=== PATIENT | male | born 1965 | race Caucasian/White ===

== ENCOUNTER 2016-04-05 08:05 | Emergency (ER) | payer BC, OTHER ==
[~2016-04-05] VITALS: Ht 182.9 cm; Wt 84.1 kg
[2016-04-05 08:12] VITALS: TEMP 37.1; Ht 182.9 cm; Wt 84.1 kg
[2016-04-05 09:02] VITALS: O2SAT 94
[2016-04-05 09:03] LABS: BASO % 0.4 %; BASO ABS # 0.02 K/uL (0-0.2); COMPLETE YES; EOS % 0.7 %; HEMATOCRIT 45.9 % (42-52); IG% 0.6 %; LYMPH % 26.9 %; LYMPH ABS # 1.46 K/uL (1.2-3.4); MEAN CELL VOLUME 89.5 fL (80-100); MEAN CORPUSCULAR HEMOGLOBIN 32.2 pg (25-34); MEAN CORPUSCULAR HGB CONC 35.9 g/dl (32-36); MEAN PLATELET VOLUME 9.6 fL (7.4-10.4); MONO % 16.2 %; NEUT % 55.2 %; PLATELET COUNT 219 K/uL (130-400); RED BLOOD COUNT 5.13 M/uL (4.7-6.1); WHITE BLOOD COUNT 5.42 K/uL (4.8-10.8)
[2016-04-05 09:12] LABS: PARTIAL THROMBOPLASTIN RATIO 0.9; PROTHROMBIN TIME (PATIENT) 10.2 SECONDS (9.0-12.0)
[2016-04-05 09:34] LABS: ALB/GLOB RATIO 1.1 (0.9-2); BUN/CREATININE RATIO 12.6 (10-20); CALCIUM 9.3 mg/dl (8.5-10.1); CKMB/CK RATIO 2.6 (0-3.0); CREATININE 0.89 mg/dl (0.60-1.40); POTASSIUM 4.5 mmol/L (3.5-5.1)
--- NOTE | 2016-04-05 09:47 | DIAGNOSTIC IMAGING REPORT ---
LEFT RIBS UNILATERAL WITH PA CHEST CLINICAL HISTORY: Left-sided rib pain COMPARISON STUDY: No previous studies for comparison. FINDINGS: The erect chest reveals no pneumothorax. The heart is normal in size. There is no focal pulmonary consolidation. There are no pleural effusions. No left-sided rib fractures are visualized. IMPRESSION: No evidence of pneumothorax. No left-sided rib fractures identified. Electronically signed by: Iftikhar Strauss M.D. 04/05/2016 9:46 AM Dictated Date/Time: 04/05/2016 9:45 AM
--- NOTE | 2016-04-05 11:12 | EMERGENCY ROOM VISIT NOTE ---
History First contact with patient: 08:33 Chief Complaint: RIB PAIN Stated Complaint: RIB PAIN History of Present Illness The patient is a 50 year old male who presents to the Emergency Department by private vehicle for evaluation of his LEFT sided rib pain. He reports that he sustained a fall approximately 3 months ago injuring the LEFT-sided ribs. He had near complete resolve of symptoms from that event. A few weeks ago he developed mild discomfort to the LEFT-sided ribs. He reports that yesterday he had intensification of his pain focused to the LEFT-sided ribs. He reports the pain is worse with movement. He denies any significant pain on exertion. He denies any pleuritic pain, cough, or shortness of breath. He denies any new or recent trauma to the area. He denies any burning sensation or rash. The patient reports no anterior chest pain, palpitations, short of breath, dizziness , or lightheadedness. He denies any personal history of cardiac disease. He reports his father has a history of cardiac disease. He has a brother who at his same age from unknown disease process. The patient is tried nank-xve-lqlefcc medications with minimal relief of symptoms. He rates his current discomfort as a 7/10. The patient denies any fevers, chills, recent illness, headaches, distance, lightheadedness, nausea, vomiting, abdominal pain , hemoptysis, hematochezia, melena, hematuria, or dysuria. The patient denies a recent long distance travel. He reports no history of smoking. He denies any family history of blood clots/bleeding disorders. Patient does not currently have a primary care provider. Review of Systems A complete 10-point Review of Systems was discussed with the patient, with pertinent positives and negatives listed in the History of Present Illness. All remaining Review of Systems questions can be considered negative unless otherwise specified. Social History Smoking Status: Never Smoker Smokeless Tobacco Use: No Drug Use: none Housing Status: lives with family Occupation Status: employed Current/Historical Medications No Active Prescriptions or Reported Meds Allergies Coded Allergies: No Known Allergies (Unverified , 04/05/16) Physical Exam Vital Signs Date Time Temp Pulse Resp B/P Pulse Ox O2 Delivery O2 Flow Rate FiO2 04/05/16 11:26 86 16 130/72 98 04/05/16 10:20 86 19 137/93 96 Room Air 04/05/16 09:36 92 16 142/92 97 Room Air 04/05/16 09:13 90 04/05/16 09:03 94 13 140/88 95 Room Air 04/05/16 09:02 94 Room Air 04/05/16 08:12 37.1 107 18 132/78 97 Room Air Pain Rating (0-10): 7 Physical Exam VITAL SIGNS - Vital signs and nursing notes were reviewed. GENERAL - 50-year-old male appearing his stated age who is in no acute distress. Communicates well with provider and answers questions appropriately. NECK - Neck with FROM. Supple to palpation. LUNGS - Chest wall symmetric without accessory muscle use, intercostals retractions, or central cyanosis. Normal vesicular breath sounds CTA B/L. No wheezes, rales, or rhonchi appreciated. CARDIAC - RRR with S1/S2. No murmur, rubs, or gallops appreciated. No reproducible tenderness to palpation appreciated over the anterior chest wall. Moderate reproducible tenderness to palpation to the LEFT-sided lower axillary line. Reproducible pain appreciated with deep inspiration against examiner's lateral force. No step-off deformity or crepitus. ABDOMEN - Abdominal contour flat and without pulsations or visible masses. BS normoactive all four quadrants. No tenderness, palpable masses, hepatosplenomegaly, or ascites noted. EXTREMITIES - No clubbing or peripheral cyanosis. No pretibial edema present. +3 /5 radial and dorsalis pedis pulses palpated throughout. +5/5 strength noted in UE/LE bilaterally. NEUROLOGIC - Cranial nerves II through XII grossly intact. Sensory intact to light touch throughout. PSYCH - A&Ox3 and cooperates fully with examiner. Pt is very pleasant and interacts well with examiner. Medical Decision & Procedures ER Provider Diagnostic Interpretation: Radiological imaging and reports were reviewed by myself. Radiologist's Interpretation as follows: LEFT RIBS UNILATERAL WITH PA CHEST CLINICAL HISTORY: Left-sided rib pain COMPARISON STUDY: No previous studies for comparison. FINDINGS: The erect chest reveals no pneumothorax. The heart is normal in size. There is no focal pulmonary consolidation. There are no pleural effusions. No left-sided rib fractures are visualized. IMPRESSION: No evidence of pneumothorax. No left-sided rib fractures identified. Laboratory Results 04/05/16 08:50 Red Blood Count 5.13, Mean Corpuscular Volume 89.5, Mean Corpuscular Hemoglobin 32.2, Mean Corpuscular Hemoglobin Concent 35.9, Mean Platelet Volume 9.6, Neutrophils (%) (Auto) 55.2, Lymphocytes (%) (Auto) 26.9, Monocytes (%) (Auto) 16.2, Eosinophils (%) (Auto) 0.7, Basophils (%) (Auto) 0.4, Neutrophils # (Auto ) 2.99, Lymphocytes # (Auto) 1.46, Monocytes # (Auto) 0.88, Eosinophils # (Auto ) 0.04, Basophils # (Auto) 0.02 04/05/16 08:50 Test 04/05/16 08:50 04/05/16 08:55 White Blood Count 5.42 K/uL (4.8-10.8) Red Blood Count 5.13 M/uL (4.7-6.1) Hemoglobin 16.5 g/dL (14.0-18.0) Hematocrit 45.9 % (42-52) Mean Corpuscular Volume 89.5 fL (80-100) Mean Corpuscular Hemoglobin 32.2 pg (25-34) Mean Corpuscular Hemoglobin Concent 35.9 g/dl (32-36) Platelet Count 219 K/uL (130-400) Mean Platelet Volume 9.6 fL (7.4-10.4) Neutrophils (%) (Auto) 55.2 % Lymphocytes (%) (Auto) 26.9 % Monocytes (%) (Auto) 16.2 % Eosinophils (%) (Auto) 0.7 % Basophils (%) (Auto) 0.4 % Neutrophils # (Auto) 2.99 K/uL (1.4-6.5) Lymphocytes # (Auto) 1.46 K/uL (1.2-3.4) Monocytes # (Auto) 0.88 K/uL (0.11-0.59) Eosinophils # (Auto) 0.04 K/uL (0-0.5) Basophils # (Auto) 0.02 K/uL (0-0.2) RDW Standard Deviation 43.0 fL (36.4-46.3) RDW Coefficient of Variation 13.0 % (11.5-14.5) Immature Granulocyte % (Auto) 0.6 % Immature Granulocyte # (Auto) 0.03 K/uL (0.00-0.02) Prothrombin Time 10.2 SECONDS (9.0-12.0) Prothromb Time International Ratio 1.0 (0.9-1.1) Activated Partial Thromboplast Time 23.9 SECONDS (21.0-31.0) Partial Thromboplastin Ratio 0.9 Anion Gap 7.0 mmol/L (3-11) Est Creatinine Clear Calc Drug Dose 111.4 ml/min Estimated GFR () 117.2 Estimated GFR (Non- 101.1 BUN/Creatinine Ratio 12.6 (10-20) Calcium Level 9.3 mg/dl (8.5-10.1) Total Bilirubin 0.3 mg/dl (0.2-1) Aspartate Amino Transf (AST/SGOT) 47 U/L (15-37) Alanine Aminotransferase (ALT/SGPT) 69 U/L (12-78) Alkaline Phosphatase 85 U/L (45-117) Total Creatine Kinase 42 U/L (39-308) Creatine Kinase MB 1.1 ng/ml (0.5-3.6) Creatine Kinase MB Ratio 2.6 (0-3.0) Troponin I < 0.015 ng/ml (0-0.045) Total Protein 7.8 gm/dl (6.4-8.2) Albumin 4.1 gm/dl (3.4-5.0) Globulin 3.7 gm/dl (2.5-4.0) Albumin/Globulin Ratio 1.1 (0.9-2) Lipase 295 U/L (73-393) Bedside D-Dimer 241 ng/mlFEU (0-450) Bedside Troponin I 0.000 ng/ml (0-0.045) Procedure Patient was placed on the court recording monitor and monitored throughout the entire extent of their stay. In addition, the patient's pulse oximetry was monitored throughout the entire stay. Any abnormalities or aberrancies were addressed appropriately. ECG Indication: chest pain Rate (beats per minute): 98 Rhythm: normal sinus Findings: LBBB Comparison ECG Date: no prior available ED Course Patient was seen and evaluated by myself. Labs were drawn, saline lock in place. Patient declines anything for pain at this time. EKG was obtained. I was approached by nursing staff. The patient was found to have a left bundle- branch block. Patient was addressed with this and he is uncertain of any prior EKGs that had been performed. Chest x-ray and x-ray of the ribs were obtained. Laboratory results demonstrate no acute leukocytosis, worrisome anemia, or bandemia. The patient has no significant electrolyte abnormalities. Cardiac enzymes are negative. Troponin is negative. X-ray results as above. I did discuss the case with Dr. Ibanez of [facility] cardiology. He suggests close outpatient follow-up with cardiology with likely nuclear echocardiogram. Case management was able to establish an appointment on Saturday at 11:15 AM with Ema Gunderson PA-C in follow-up. I did discuss this with the patient. He is comfortable with this disposition and plan. The patient was educated on utilizing qvgl-vqg-[id number] medications for pain. He was educated on worrisome symptoms for return visit to the emergency department. Patient discharged home in good condition. Medical Decision Given the patient's presentation and exam findings, I did elect to perform the above-mentioned workup. The patient presents today with LEFT-sided rib and chest pain. His symptoms are certainly reproducible, however he has had no trauma to the affected area over the last few months. This is certainly concerning, and given the patient's family history, I did elect to perform a cardiac evaluation as well. Interestingly, the patient was found to have a left bundle-branch block. There is no prior EKG available for comparison. He has no elevation of his cardiac enzymes to suggest acute cardiac insult and his pain has been ongoing for the last several days. This makes his symptoms much more atypical in nature for cardiac etiology. D-dimer was not elevated to suggest PE for his symptomatology as well. X-ray demonstrates no rib fracture. In a discussion with cardiology, it was felt best that the patient follow up closely for continued management. The patient was comfortable with this disposition and plan. He was educated on worrisome symptoms for return visit to the emergency department. Patient discharged home in good condition. In the evaluation and treatment of this patient, the following differential diagnoses were considered: [place], ASC, Dysrhythmia, Angina, Mediastinitis, GERD, Esophagitis, PE, Pneumonia, Bronchitis, Costochondritis, Rib Fracture, Zoster. Impression Primary Impression: Rib pain on left side Additional Impressions: Left bundle branch block (LBBB) on electrocardiogram EKG abnormality Departure Information Dispostion Home / Self-Care Condition GOOD Prescriptions No Active Prescriptions or Reported Meds Referrals No Doctor, Assigned (PCP) Germain Ibanez M.D. Mattie Gunderson .SANA Patient Instructions My [facility] Additional Instructions You have been treated in the Emergency Department for your Rib Pain and EKG changes. You have been set up with an appointment with Ema Gunderson PA-C for Saturday the at 11:15 AM. Please keep this appointment as it is IMPERATIVE for continued management of your symptoms. For pain control, you can use the following nqhq-ina-jocqibl medicines (if >12 yo): - Regular strength (325mg/tab) Tylenol (acetaminophen) 2 tabs every 4-6 hours as needed. Do not exceed 12 tablets in a 24 hour period. Avoid taking more than 4 grams (4000 mg) of Tylenol per day. This includes any other sources of acetaminophen you may take on a regular basis. - Regular strength (200 mg/tab) Advil (ibuprofen) 1-2 tabs every 4-6 hours as needed. Do not exceed a dose of 3200 mg per day. You should schedule a follow-up appointment with your Primary Care Provider in 2 -3 days for further evaluation from today's Emergency Department visit. Return to the Emergency Department if your current symptoms worsen despite treatment course outlined above, or if you develop any of the following symptoms : worsening chest pain, associated jaw/arm pain, nausea, dizziness, shortness of breath, bloody cough, or fainting. Problem Qualifiers
[2016-04-05 11:26] VITALS: BP 130/72; PULSE 86; O2SAT 98
[2016-05-03] MEDS ORDERED: ATOR-24 PO (07:18)
[2016-05-03] MEDS ORDERED: ASPCH81X PO (07:18)
[2016-05-03] MEDS ORDERED: METO25TA56 PO (07:18)
== END 2016-04-05 11:28 | disposition home or self-care (01) ==
LOC: C.EDB 08:07 → C.EDA 11:28
DX: R07.81 Pleurodynia (principal); I44.7 Left bundle-branch block, unspecified; R94.31 Abnormal electrocardiogram [ECG] [EKG]

== ENCOUNTER → 2016-04-20 | Outpatient (CLI) | payer BC ==
[~2016-04-20] MED LIST: ASPCH81X PO; ATOR-24 PO; METO25TA56 PO; REGADENOSON 0.4 MG/5 ML SYR ONE
--- NOTE | 2016-04-22 08:04 | MYOCARDIAL PERFUSION SCAN ---
TITLE OF STUDY: ONE-DAY TECHNETIUM-99M CARDIOLITE MYOCARDIAL PERFUSION STUDY AGE: 50 CONSULTATION REQUESTED BY: Dr. Sorin Zamora. DATE OF STUDY: 04/20/2016 REASON FOR STUDY: Left bundle branch block, history of coronary artery disease involving family members. EKG: Baseline EKG shows left bundle branch block. With Lexiscan infusion, there were no significant EKG abnormalities induced. There was occasional PVC. TECHNIQUE: For the stress portion of the study, 33.1 mCi of technetium-99m Cardiolite IV was injected at 9:40 a.m. on 04/20/2016. Thirty minutes following the injection, imaging of the heart was performed in multiple projections. For the rest portion of the study, 11.1 mCi of technetium-99m Cardiolite was injected IV at 7:25 a.m. One hour following the injection, imaging of the heart was performed in the same projections. FINDINGS: Raw images were reviewed in detail. There was minimal vertical motion involving the stress images. There was also some mild gut uptake potentially impairing the inferior imaging border of the heart. This was most notable on stress images. Otherwise, there was no significant extra cardiac uptake that was thought to be pathologic. There was questionable visual TID. Short axis, long axis, vertical long axis images were reviewed in detail. There was a moderate-sized, moderate severity, partially reversible mid to apex anterior and septal wall perfusion defect. Summed difference score approximately 5. In addition, there was a large moderate, mostly reversible inferior,inferoseptal defect from the base to the apex. LV was dilated with an end diastolic volume of 158 mL. There was severe LV dysfunction with an EF of 26%. The anterior wall from the mid segment to the apex was severely hypokinetic, septal wall was dyskinetic. The inferior wall was moderately hypokinetic. Lateral wall showed preserved function and normal uptake. IMPRESSION: 1. Moderate sized, moderate in severity anterior, anteroseptal, septal perfusion defect potentially consistent with LAD infarct with jenelle-infarct ischemia in the LAD distribution. 2. Severe inferior, largely reversible perfusion defect concerning for RCA distribution ischemia. 3. Possible TID. 4. Severe left ventricular dysfunction with an EF of 26% and anterior severe hypokinesis with dyskinetic septum in the setting of left bundle. Also with moderate inferior hypokinesis. Lateral wall function appears preserved. Overall, this is a high risk stress test for cardiac events. MTDD
== END | disposition home or self-care (01) ==
LOC: C.NUCL 07:08
PROVIDERS: ATTEND Internal Medicine Interventional Cardiology
DX: I44.7 Left bundle-branch block, unspecified (principal); R07.9 Chest pain, unspecified; Z82.49 Family history of ischemic heart disease and other diseases of the circulatory system

== ENCOUNTER → 2016-05-03 | Day surgery (SDC) | payer BC ==
[~2016-05-03] VITALS: Ht 182.9 cm; Wt 82.0 kg
[~2016-05-03] MED LIST changes: +FENTANYL CITRATE INJ 50 MCG/1 ML 2 ML VIAL ONE; +HEPARIN SOD (PORCINE) 1000 UNIT/ML 10 ML VIAL ONE; +MIDAZOLAM HCL 1 MG/ML 2ML VIAL ONE; +NITROGLYCERIN/D5W 100MCG/ML 20ML SYR ONE; +NiCARDipine HCL INJ 2.5 MG/ML 10 ML AMP ONE; -REGADENOSON 0.4 MG/5 ML SYR ONE
[2016-05-03 07:15] VITALS: BP 105/74; PULSE 74; TEMP 36.9; O2SAT 96; Ht 182.9 cm; Wt 82.0 kg
--- NOTE | 2016-05-03 08:45 | Procedure Note ---
Pre-Mod Sedation Assessment General Date of Moderate Sedation: May 03, 2016. Vital Signs: Vital Signs Past 12 Hours Date Time Temp Pulse Resp B/P Pulse Ox O2 Delivery O2 Flow Rate FiO2 05/03/16 08:42 80 18 115/69 96 Room Air 05/03/16 08:37 81 18 122/68 99 Nasal Cannula 3 05/03/16 07:15 36.9 74 18 105/74 96 97 Review Cardiovascular: regular rate, rhythm, no edema, no gallop Abdomen: normal bowel sounds, non tender, soft Lungs: chest non-tender, lungs clear, normal breath sounds Airway Class: II Pre-Sedation Airway Assessment Oral Cavity: WNL Able to Visualize Vocal Cords: Yes Short Thick Neck: No Hx of Sleep Apnea: No Smoking Status: Never Smoker Mallampati Classification: Class II ASA Classification: Class II Procedure Planning Contraindications-for Mod Sed: None Yes Notes The planned sedation has been discussed with the patient and consent obtained. I have identified the patient, determined the appropriateness of sedation and have assessed the patient immediately prior to the procedure. All medicine(s) and interventions are by my order.
--- NOTE | 2016-05-03 08:45 | History & Physical Bridge Note ---
H&P Re-Evaluation Bridge Note: I have examined the patient, reviewed the History & Physical and in the interval since the performance of the History & Physical I have noted the following changes of clinical significance: No changes noted
--- NOTE | 2016-05-03 08:46 | Procedure Note ---
Post-Mod Sedation Assessment General Date of Moderate Sedation May 03, 2016. Vital Signs: Vital Signs Past 12 Hours Date Time Temp Pulse Resp B/P Pulse Ox O2 Delivery O2 Flow Rate FiO2 05/03/16 08:42 80 18 115/69 96 Room Air 05/03/16 08:37 81 18 122/68 99 Nasal Cannula 3 05/03/16 07:15 36.9 74 18 105/74 96 97 Review - Discharge Criteria Vital Signs Stable: Yes Alert/Oriented/Conversant: Yes Returned to Baseline Mental St: Yes Nausea Absent/Minimal: Yes Pain/Discomfort/Absent/Minimal: Yes Normal/Baseline Respirations: Yes Active Bleeding?: No Pt Received D/C Instructions: Yes Prescriptions Given: None Specific Proced. D/C Criteria Distal Pulses Present (Cardiac: Yes Groin site assessed-Card Cath: N/A Voided Prior To Discharge: Yes Discharged Patients Adult Escort/Transportation: Yes
--- NOTE | 2016-05-03 08:56 | Discharge Instructions ---
Discharge Instructions Procedure Procedure Date: May 03, 2016. Reason for Visit: Abnormal Stress Test *Dr Zamora To Do*. Discharge Discharge Date: May 03, 2016. Discharge Diagnosis: Normal Coronary Arteries Last Recorded Wt (Kilograms): 82 Anesthesia Post Anesthesia Instructions: Instructions Activity Recommendations: limitations as noted below Recommended Home Diet: resume previous diet Allergies: Coded Allergies: No Known Allergies (Unverified , 04/05/16) Provider Instructions ACTIVITY RECOMMENDATIONS: It is common to feel weak and fatigue for a few days. * Do not drive or operate any motorized equipment today. * Limit stair usage (2 or 3 trips a day only) for the next 2 days. * Do not lift anything heavier than 10 pounds for the next three days. * Do not engage in vigorous exercise or any sports for the next five days. * You may shower the day after your procedure, but do not immerse the area for three days. Cleanse the site gently with soap and water. SPECIAL CARE INSTRUCTIONS: * You may replace the pressure dressing or band-aid the morning after the procedure. * After your procedure, it is normal to have a small bruise or small lump at the site. Examine your site daily for any change in the bruise or lump, redness, swelling, drainage or numbness. Notify your doctor if any change. BLEEDING: * If there is a small amount of bleeding at the site, lie down and apply firm pressure with a clean cloth for ten minutes. When the bleeding stops, lie quietly keeping the procedure limb straight for six hours. Notify your doctor as soon as possible. * If the bleeding does not stop after ten minutes or if there is a large amount of bleeding or spurting, call 911 immediately. Continue to lie down and hold firm pressure until help arrives. SKIN IRRITATION: * You may experience some redness and/or swelling in the area where radiation was administered. If any skin irritation occurs, please contact your family physician. FOLLOW UP VISIT: Keep any scheduled doctor appointments. Follow Up Additional Instructions: Echocardiogram at Cardiology office to be scheduled. Follow-up with: Follow-up with Mattie Gunderson in 3 weeks. Kathie Kaiser Recommendations: Call your doctor if: * Temperature above 101 degrees * Pain not relieved by pain medicine ordered * There is increased drainage or redness from any incision * You have any unanswered questions or concerns. Your Doctors Instructions noted above were prepared by provider Joseph Zamora. Patient Signature Section: Patient Instructions Signature Page Jason Moreno Patient (or Guardian) Signature/Date: I have read and understand the instructions given to me by my caregivers. Caregiver/RN/Doctor Signature/Date: The above-named patient and/or guardian has received patient instructions on this date. + Original Patient Signature Page (only) stays with chart. Please make copy for patient.
--- NOTE | 2016-05-03 09:11 | Cardiac Catheterization ---
Procedure Note Procedure Date May 03, 2016. Pre-Procedure Diagnosis Positive Stress Test AUC Score 7 Post-Procedure Diagnosis Normal Coronary Arteries, Normal LV Systolic Function, Normal Intracardiac Pressures Procedure(s) Performed Coronary Angiography, Left Heart Cath, LV Angiography Quarry Manager Dr. Zamora Flocculator Operator(s) Alisha Estimated Blood Loss 15 Medication(s) Fentanyl, Heparin, Nitroglycerin, Versed, Lidocaine 1% Summary of Findings Indication: Atypical chest pain/LBBB/Positive stress test Access: 6Fr Slender Right radial artery Catheters: Shaan, Pigtail Findings: LM - Angiographically normal LAD - Angiographically normal, large vessel that wraps around apex. Circumflex - Minimal luminal irregularities RCA - Dominant, angiographically normal LVEF ~50%. No regional wall motion abnormalities. 1+ MR, 1+ AI LVEDP - 3 Arterial Closure: TR Band Summary: 1. Angiographically normal coronary arteries (False Positive Stress Test) 2. Low normal LV function. LVEF 50% Recommendations: Echocardiogram as an outpatient to confirm LV function, cardiomegaly and mild valvular heart disease. For now continue current cardiac meds. Follow-up with cardiology clinic within next month. Will discuss continued CAD primary prevention meds in setting of patients significant family history and whether needs BB/ANDREA going forward Hemodynamics Rest Ao: 90/57/72 Final Ao: 97/3 LV: 96/55/73 Recommendations Medical therapy and/or Counseling Specimens None Radiation Exposure (mGy) 958 Contrast (mls) 100 Fluids (cc crystalloids) 50 Drains None Anesthesia Moderate Procedural Complication(s) None Disposition Electronic Intelligence Officer Holding/Recovery ACC Data Cardiac Status Clinical evaluation leading to the procedure CAD Presntation: Sx unlikely to be ischemic, Non STEMI Anginal Classification: CCS II Heart Failure: No, NYHA Class: CCS I Cardiogenic Shock w/in 24Hrs: No Cardiac Arrest w/in 24Hrs: No Imaging studies past 6 months: Yes Stress studies past 6 months: Yes Standard Exercise Stress Test: No Stress Echocardiogram: No Stress Testing w/SPECT MPI: Yes - Positive, Risk/Extent of Ischemia (High) Cardiac CTA: No Coronary Anatomy Dominant: Right Left Main (% Stenosis): Normal LAD (% Stenosis): Normal Circumflex (% Stenosis): Normal RCA (% Stenosis): Normal Left Ventricular Angiography EF (%): 50 Mitral Regurgitation: 1+ Aortography Aortic Regurgitation: 1+ Diagnostic Physician's Name: Sorin Zamora MD Status: Elective Closure Device Percutaneous Entry Location: Radial Closure Device: Radial Band Recommendations: Medical therapy and/or Counseling Intraprocedure Events Significant Dissection: No Perforation: No
[2016-05-03 11:00] VITALS: BP 104/67; PULSE 88; O2SAT 97
== END | disposition home or self-care (01) ==
LOC: C.CATH 07:12
PROVIDERS: ATTEND Internal Medicine Interventional Cardiology
DX: I25.10 Atherosclerotic heart disease of native coronary artery without angina pectoris (principal); R07.9 Chest pain, unspecified; R94.39 Abnormal result of other cardiovascular function study; I44.7 Left bundle-branch block, unspecified; Z82.49 Family history of ischemic heart disease and other diseases of the circulatory system; F17.220 Nicotine dependence, chewing tobacco, uncomplicated

== ENCOUNTER → 2016-05-18 | Outpatient (CLI) | payer BC ==
[~2016-05-18] MED LIST changes: -FENTANYL CITRATE INJ 50 MCG/1 ML 2 ML VIAL ONE; -HEPARIN SOD (PORCINE) 1000 UNIT/ML 10 ML VIAL ONE; -MIDAZOLAM HCL 1 MG/ML 2ML VIAL ONE; -NITROGLYCERIN/D5W 100MCG/ML 20ML SYR ONE; -NiCARDipine HCL INJ 2.5 MG/ML 10 ML AMP ONE
[2016-05-18 09:25] LABS: HEMATOCRIT 43.7 % (42-52); MEAN CELL VOLUME 88.5 fL (80-100); MEAN CORPUSCULAR HEMOGLOBIN 31.2 pg (25-34); MEAN CORPUSCULAR HGB CONC 35.2 g/dl (32-36); PLATELET COUNT 224 K/uL (130-400); RED BLOOD COUNT 4.94 M/uL (4.7-6.1); WHITE BLOOD COUNT 6.19 K/uL (4.8-10.8)
[2016-05-18 09:38] LABS: PARTIAL THROMBOPLASTIN RATIO 0.9; PROTHROMBIN TIME (PATIENT) 10.2 SECONDS (9.0-12.0)
[2016-05-18 09:49] LABS: GLUCOSE 98 mg/dl (70-99)
[2016-05-18 09:50] LABS: BLOOD UREA NITROGEN 8 mg/dl (7-18); BUN/CREATININE RATIO 10.1 (10-20); CALCIUM 9.7 mg/dl (8.5-10.1); CARBON DIOXIDE 30 mmol/L (21-32); CHLORIDE 103 mmol/L (98-107); CREATININE 0.82 mg/dl (0.60-1.40); SODIUM 140 mmol/L (136-145)
== END | disposition home or self-care (01) ==
LOC: C.LAB1850 08:07
PROVIDERS: ATTEND Internal Medicine Interventional Cardiology
DX: Z01.818 Encounter for other preprocedural examination (principal)

== ENCOUNTER → 2016-05-22 | Outpatient (CLI) | payer BC ==
[2016-05-22 15:03] LABS: FERRITIN 359.1 ng/ml (8.0-388.0); THYROID STIMULATING HORMONE 0.569 uIu/ml (0.300-4.500)
[2016-05-22 15:55] LABS: LYME DISEASE AB IGG NEG (NEG); LYME DISEASE AB IGM NEG (NEG)
== END | disposition home or self-care (01) ==
LOC: C.LAB1850 12:59
PROVIDERS: ATTEND Internal Medicine Cardiovascular Disease
DX: I42.9 Cardiomyopathy, unspecified (principal)

== ENCOUNTER 2019-04-02 20:05 | Inpatient (IN) ==
[2019-04-02 20:47] LABS: Partial Thromboplastin Ratio 0.8; Partial Thromboplastin Time 21.9 Seconds (21.0-31.0); Prothrombin Time 10.4 Seconds (9.0-12.0)
--- NOTE | 2019-04-02 20:56 | XRay Report ---
SINGLE VIEW CHEST CLINICAL HISTORY: Atypical chest pain. FINDINGS: An AP, portable, upright chest radiograph is compared to study dated 04/05/2016. The examinat ion is degraded by portable technique and patient rotation. The heart is mildly enlarged noting ather osclerotic calcification of the thoracic aorta. The pulmonary vasculature is noncongested. Atelectasi s is seen at the lung bases. The lungs and pleural spaces are otherwise clear. No pneumothorax is see n. The bony thorax is grossly intact. IMPRESSION: Mild cardiac enlargement with no acute cardiopulmonary abnormality. ACT 112: Negative or not required by law. Electronically signed by: Alen Patterson M.D. 04/02/2019 8:54 PM
[2019-04-02 21:03] LABS: Albumin Globulin Ratio 0.4 (0.9-2); Blood Urea Nitrogen 15 mg/dl (7-18); Carbon Dioxide 23 mmol/L (21-32); Chloride 107 mmol/L (98-107); Creatinine Clr Calc Pharmacy 104.3 ml/min; Est GFR (African American) 111.2; Lipase 205 U/L (73-393); Potassium 3.6 mmol/L (3.5-5.1); Sodium 137 mmol/L (136-145); Troponin I 0.019 ng/ml (0-0.045)
[2019-04-02 21:15] LABS: Glucose 104 mg/dl (70-99); Hematocrit (blood only) 24.5 % (42-52); Hemoglobin 7.9 g/dL (14.0-18.0); Mean Corpuscular Hemoglobin 29.6 pg (25-34); Mean Corpuscular Hgb Conc 32.2 g/dL (32-36); Mean Corpuscular Volume 91.8 fL (80-100); Mean Platelet Volume 9.9 fL (7.4-10.4); Nucleated RBC # (auto) 0.03 K/uL (0-0); Nucleated RBC % (auto) 0.7 %; Platelet Count 29 K/uL (130-400); RDW Coefficient of Variation 21.4 % (11.5-14.5); Red Blood Count 2.67 M/uL (4.7-6.1); White Blood Count 4.25 K/uL (4.8-10.8)
[2019-04-02 21:16] LABS: Basophils # (auto) 0.01 K/uL (0-0.2); Basophils % (auto) 0.2 %; Eosinophils # (auto) 0.01 K/uL (0-0.5); Eosinophils % (auto) 0.2 %; Hypochromasia Present; Immature Granulocytes # (auto) 0.02 K/uL (0.00-0.02); Immature Granulocytes % (auto) 0.5 %; Lymphocytes # (auto) 2.96 K/uL (1.2-3.4); Lymphocytes % (auto) 69.6 %; Monocytes # (auto) 0.39 K/uL (0.11-0.59); Monocytes % (auto) 9.2 %; Neutrophils # (auto) 0.86 K/uL (1.4-6.5); Neutrophils % (auto) 20.3 %; Platelet Estimate Decreased (Normal); Rouleaux 2+
[2019-04-02 21:24] LABS: Alanine Aminotransferase 38 U/L (12-78); Alkaline Phosphatase 69 U/L (45-117); Aspartate Aminotransferase 34 U/L (15-37); Bilirubin,Total 0.2 mg/dl (0.2-1)
[2019-04-02 21:48] LABS: Calcium 9.5 mg/dl (8.5-10.1)
[2019-04-02 22:21] LABS: Magnesium 1.9 mg/dl (1.8-2.4); Thyroid Stimulating Hormone 1.49 uIu/ml (0.300-4.500)
--- NOTE | 2019-04-02 23:38 | History & Physical Report ---
Date of Service April 02, 2019 Assessment & Plan (1) Fatigue: Multifactorial : Symptomatic anemia, new diagnosis of pancytopenia with lymphadenopathy (possible lymphoma) ? Lyme disease, partially treated ? Systolic CHF, medication/follow-up noncompliance, some decrease in EF on recent TTE Medical telemetry Transfuse PRBC to maintain hemoglobin greater than 8 Inpatient Hematology consultation as per patient request RE pancytopenia, lymphadenopathy on CT Lyme screen Initiate low-dose beta-geo, ANDREA inhibitor for CHF recommended by pediatric rn in 2017, outpatient follow-up with [facility] cardiology for CHF. DVT prophylaxis with SCDs RE thrombocytopenia Full code Patient's requesting updates from providers. Ms. Tiffani Moreno, contact #[phone]. History of Present Illness Chief Complaint: Fatigue Primary Care Provider: Teo Ernst, History obtained from patient, family, and records. Medical history significant for chronic systolic HF (EF 35 to 40%, TTE 2019), chronic chest pain, chronic LBBB, new diagnosis of pancytopenia/lymphadenopathy, history of tick bite status post incomplete Doxycycline Rx. Patient has had chronic chest pain for years. Abnormal stress test in 2017 led to cardiac catheterization which showed normal coronary arteries, low normal LV function. Aspirin, beta-geo, ANDREA inhibitor medications and outpatient cardiology follow-up visit recommended by pediatric rn. Patient does not recall getting aforementioned instructions. Recent ER visit October 2018 for muscle aches, history of tick bite exposure. Reactive Lyme screen. Patient noted to be pancytopenic (hemoglobin 10) as per ER blood work. Patient discharged on Doxycycline course. Improved symptoms after a few days of doxycycline Rx. Patient did not complete antibiotic Rx because he does not like taking pills. Unclear if patient was able to follow-up with PCP after ER visit. 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 No cough symptoms. Intermittent epistaxis episodes as per records. Patient took some leftover doxycycline tablets prescribed by ER provider for tick bite from last year for a few days which led to some improvement in fatigue symptoms. Patient subsequently confined for 2 days at [facility] in [place] for worsening fatigue symptoms. Patient noted to be pancytopenic. Hemoglobin 6.6, platelets 56, WBC 2.7. Serum iron noted to be 61, TIBC 259, ferritin 239, B12 360, TS saturation 24%. Peripheral blood smear showed pancytopenia with relative lymphocytosis and reactive lymphocytes. Rouleaux formation. LFTs, LDH normal. Negative HCV, HBV serologies. CMV, EBV serologies pending at time of discharge. TTE EF 35 to 40%, moderately reduced systolic function, LAE, PASP 35 mm Hg. Liver ultrasound showed diffusely heterogeneous liver without discrete nodules. Lymphomatous invasion cannot be excluded. CT thorax showed multiple small lymph nodes within mediastinum most compatible very active lymph hyperplasia. Enlarged spleen. Heterogeneous liver CT abdomen pelvis: Severe splenomegaly, aortic adenopathy, diffuse heterogeneous appearance of liver. Small hypodense nodules throughout the liver. Consider mononucleosis. Lymphoma cannot have a similar finding, lymphoma with liver nodules suggestive of metastatic foci. Urinary retention. Patient transfused 2 units packed RBC during confinement. Patient discharged after overnight stay at [facility] with instructions to follow-up with local oncologist for possible lymphoma work-up. Upon return to [place], patient noted worsening fatigue symptoms. No chest pain, no unusual shortness of breath. Denies abdominal pain, black/bloody stools. Denies depression. 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 Allergies Allergy/AdvReac Type Severity Reaction Status Date / Time No Known Allergies Allergy Unverified 04/02/19 22:17 Home Medications Home Medications Medication Instructions Recorded Confirmed Type albuterol sulfate 1 - 2 puff INHALATION .Q4-6HRS 04/02/19 04/02/19 History benzonatate 100 mg PO TID PRN 04/02/19 04/02/19 History fluticasone propionate 2 spray INTRANASAL DAILY PRN 04/02/19 04/02/19 History montelukast 10 mg PO DAILY PRN 04/02/19 04/02/19 History Past Med/Surg History Medical History No pertinent past medical history Tachycardia Surgical History No pertinent past surgical history Family History Other No pertinent family history Social History Preferred Language: Irish Communication Ability: Effective 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 Beliefs That Will Affect Care: None Current Living Situation: Alone Feels Safe at Home: Yes Smoking Status: Never smoker Tobacco Type: smokeless tobacco ; Do You Dip or Chew Tobacco: Yes (1/2 can chew/day) ; Hx Alcohol Use: Yes Review of Systems Review of Systems: As per HPI, all 10 systems reviewed, all other ROS negative Physical Exam Physical Exam: GENERAL: Comfortable, slightly anxious, pleasant, no respiratory distress SKIN: Pallor , warm HEENT: Pale palpebral conjunctivae, no ptosis, dry buccal mucosa NECK : Supple, no tenderness CHEST : Decreased breath sounds , no tenderness HEART : Tachycardic , no obvious murmurs ABDOMEN: Some distention, nontender EXTREMITIES : No LE swelling/tenderness, no other conspicuous deformities noted NEUROLOGIC : Coherent, no facial asymmetry, no other gross focality Results & Data Vital Signs (Past 12 Hours) Vital Signs Temp Pulse Resp BP Pulse Ox 04/02/19 22:36 103 H 22 127/70 98 04/02/19 22:30 104 H 27 H 97 04/02/19 22:15 100 H 23 04/02/19 22:00 97 H 20 100 04/02/19 21:45 105 H 29 H 93 04/02/19 21:30 100 H 21 93 04/02/19 21:15 105 H 22 98 04/02/19 21:00 99 H 22 97 04/02/19 20:45 102 H 21 98 04/02/19 20:30 93 H 18 04/02/19 20:25 97 H 24 04/02/19 20:07 36.7 C 108 H 18 132/83 98 Laboratory Results Laboratory Results WBC 4.25 K/uL (4.8-10.8) L 04/02/19 20:16 RBC 2.67 M/uL (4.7-6.1) L 04/02/19 20:16 Hgb 7.9 g/dL (14.0-18.0) L 04/02/19 20:16 Hct 24.5 % (42-52) L 04/02/19 20:16 MCV 91.8 fL (80-100) 04/02/19 20:16 MCH 29.6 pg (25-34) 04/02/19 20:16 MCHC 32.2 g/dL (32-36) 04/02/19 20:16 RDW Std Deviation 72.0 fL (36.4-46.3) H 04/02/19 20:16 RDW Coeff of Ruth 21.4 % (11.5-14.5) H 04/02/19 20:16 Plt Count 29 K/uL (130-400) L* 04/02/19 20:16 MPV 9.9 fL (7.4-10.4) 04/02/19 20:16 Immature Gran % (Auto) 0.5 % 04/02/19 20:16 Neut % (Auto) 20.3 % 04/02/19 20:16 Lymph % (Auto) 69.6 % 04/02/19 20:16 Mcleod % (Auto) 9.2 % 04/02/19 20:16 Eos % (Auto) 0.2 % 04/02/19 20:16 Baso % (Auto) 0.2 % 04/02/19 20:16 Immature Gran # (Auto) 0.02 K/uL (0.00-0.02) 04/02/19 20:16 Neut # (Auto) 0.86 K/uL (1.4-6.5) L* 04/02/19 20:16 Lymph # (Auto) 2.96 K/uL (1.2-3.4) 04/02/19 20:16 Mcleod # (Auto) 0.39 K/uL (0.11-0.59) 04/02/19 20:16 Eos # (Auto) 0.01 K/uL (0-0.5) 04/02/19 20:16 Baso # (Auto) 0.01 K/uL (0-0.2) 04/02/19 20:16 Absolute Nucleated RBC 0.03 K/uL (0-0) H 04/02/19 20:16 Nucleated RBC % (auto) 0.7 % 04/02/19 20:16 Platelet Estimate Decreased (Normal) L 04/02/19 20:16 Hypochromasia Present 04/02/19 20:16 Rouleaux 2+ 04/02/19 20:16 PT 10.4 Seconds (9.0-12.0) 04/02/19 20:16 INR 1.0 (0.9-1.1) 04/02/19 20:16 APTT 21.9 Seconds (21.0-31.0) 04/02/19 20:16 PTT Ratio 0.8 04/02/19 20:16 Sodium 137 mmol/L (136-145) 04/02/19 20:16 Potassium 3.6 mmol/L (3.5-5.1) 04/02/19 20:16 Chloride 107 mmol/L (98-107) 04/02/19 20:16 Carbon Dioxide 23 mmol/L (21-32) 04/02/19 20:16 Anion Gap 7.0 (3-11) 04/02/19 20:16 BUN 15 mg/dl (7-18) 04/02/19 20:16 Creatinine 0.92 mg/dl (0.6-1.4) 04/02/19 20:16 Est Cr Clr Drug Dosing 104.3 ml/min 04/02/19 20:16 Est GFR ( Amer) 111.2 04/02/19 20:16 Est GFR (Non-Af Amer) 96.0 04/02/19 20:16 BUN/Creatinine Ratio TNP 04/02/19 20:16 Glucose 104 mg/dl (70-99) H 04/02/19 20:16 Calcium 9.5 mg/dl (8.5-10.1) 04/02/19 20:16 Magnesium 1.9 mg/dl (1.8-2.4) 04/02/19 20:16 Total Bilirubin 0.2 mg/dl (0.2-1) 04/02/19 20:16 AST 34 U/L (15-37) 04/02/19 20:16 ALT 38 U/L (12-78) 04/02/19 20:16 Alkaline Phosphatase 69 U/L (45-117) 04/02/19 20:16 Troponin I 0.019 ng/ml (0-0.045) 04/02/19 20:16 Total Protein 10.0 gm/dl (6.4-8.2) H 04/02/19 20:16 Albumin 3.0 gm/dl (3.4-5.0) L 04/02/19 20:16 Globulin 7.0 gm/dl (2.5-4.0) H 04/02/19 20:16 Albumin/Globulin Ratio 0.4 (0.9-2) L 04/02/19 20:16 Lipase 205 U/L (73-393) 04/02/19 20:16 TSH 1.490 uIu/ml (0.300-4.500) 04/02/19 20:16 Blood Type B Positive 04/02/19 20:36 Antibody Screen NEGATIVE 04/02/19 20:36 Diagnostic Findings Chest x-ray : Mild cardiac enlargement with no acute cardiopulmonary abnormality. EKG as per my interpretation : Rate 105, sinus tachycardia, normal axis, LBBB
--- NOTE | 2019-04-03 00:54 | Emergency Department Note ---
Entered by Emy Torres acting as a scribe for Michael Suh MD ED Provider Note CHIEF COMPLAINT: Weakness HISTORY OF PRESENT ILLNESS: The patient is a 53 year old male who presents to the Emergency Room with complaints of persistent weakness that began about 2.5 weeks ago. He states that he was in [place] for work, and he presented to the ER there for heart attack symptoms. The patient notes that he was anemic and there were concerns for lymphoma. He reports that he received a blood transfusion, noting that it provided some relief. The patient complains of a headache and a cough. He complains of intermittent upper extremity numbness and a rash on his back. He feels worse with exertion. Pt denies LOC, fevers, chills, diaphoresis, visual changes, neck pain, chest pain, breathing difficulties, nausea, vomiting, abdom inal pain, back pain, melena, hematochezia, urinary symptoms, lymphadenopathy, or other complaints. REVIEW OF SYSTEMS: See HPI for pertinent positives and negatives. A total of ten systems were reviewed and were otherwise negative. PMHx/PSHx: Tick bite, thrombocytopenia, leukopenia SOCIAL HISTORY: Patient lives at home. PHYSICAL EXAM: GENERAL: Awake, alert, tired-appearing, in no distress HENT: Normocephalic, atraumatic. Oropharynx unremarkable. EYES: PERRL. Normal conjunctiva. Sclera non-icteric. NECK: Inspection normal. Non-tender. Supple. No nuchal rigidity. FROM. No masses. RESPIRATORY: Clear to auscultation. No wheezes. No rales. Normal respiratory effort. CARDIAC: Borderline tachycardic rate. Normal rhythm. No murmurs. No rubs. Extremities warm and well perfused. Pulses equal. No JVD. GI: Soft, non-distended. No tenderness to palpation. No rebound or guarding. No masses. Splenomegaly on exam. RECTAL: Deferred. MUSCULOSKELETAL: Atraumatic. Chest examination reveals no tenderness. The back is symmetrical on inspection without obvious abnormality. There is no CVA tenderness to palpation. No joint edema. LOWER EXTREMITIES: Calves are equal size bilaterally and non-tender. No edema. No discoloration. NEURO: Normal sensorium. No sensory or motor deficits noted. SKIN: No rash or jaundice noted. EMERGENCY DEPARTMENT COURSE: 2055: I reviewed the patient's EMR. Per the patients EMR, the patient presented to a hospital in [place] on 03/30/19 with weakness, generalized fatigue, and functional decline for two weeks prior. He was found to have pancytopenia, and his hepatitis B and C tests were negative. He had an elevated reticulocyte count of 28. The CT of his abdomen and pelvis showed severe splenomegaly and lymphadenopathy with concerns for lymphoma. The staff discussed the issues with him, and he wanted to come home to [place]. On presentation his hemoglobin was 6.6. On discharge, he had a white blood cell count of 3.4, hemoglobin of 8.1, and a platelet count of 39. The CT of his chest showed no acute findings. He was discharged with instructions to follow up with oncology as soon as possible. 2100: Past medical records reviewed. The patient was evaluated in room C08, and a complete history and physical examination were performed. 2121: I updated the patient. 2144: I spoke with Dr. Simeon, [facility] hospitalist, about the patient's case. He will further evaluate the patient. MEDICAL DECISION MAKING: Prior records/ancillary studies reviewed. Nursing notes reviewed and agree them. Additional history obtained from patient significant other. The patient's history was concerning for weakness, abnormal labs, recent h ospitalization and transfusion Differential diagnosis: Etiologies such as symptomatic anemia, myelodysplastic syndrome, lymphoma, metabolic, infection, hypo/hyperglycemia, electrolyte abnormalities, cardiac sources, intracerebral event, toxicologic, neurologic, as well as others were entertained. Physical examination: As above. ER treatment provided: IV Lock Type and cross performed. No medication given. On reassessment the patient felt better. Diagnostics interpretation by me: ECG: Left bundle branch block but no acute ischemia. No dysrhythmia. The labs revealed any mild leukopenia, anemia, pancytopenia and neutropenia. Chemistry panel unremarkable. Imaging studies: Chest imaging negative. The patient has significant anemia. He is on the verge of transfusion. He has neutropenia. He was placed on neutropenic precautions. He needs a work-up in the hospital. Consultation: A consultation was placed with the hospitalist. The case was discussed and diagnostics were reviewed. The patient was evaluated in the ER for further treatment. IMPRESSION: Symptomatic anemia, pancytopenia, neutropenia, and splenomegaly PLAN: Evaluation by hospitalist The scribe's documentation has been prepared under my direction and personally reviewed by me in its entirety. I confirm that the note above accurately reflects all work, treatment, procedures, and medical decision making performed by me. Impression & Plan Symptomatic anemia, Pancytopenia, Neutropenia, Splenomegaly Past Med/Surg History Medical History No pertinent past medical history Tachycardia Surgical History No pertinent past surgical history Family History Other No pertinent family history Social History Feels Safe at Home: Yes Smoking Status: Never smoker Results & Data Vital Signs Vital Signs - 24 hr 04/02/19 20:07 04/02/19 20:25 04/02/19 20:29 Temperature 36.7 C Temperature Source Oral Pulse Rate 108 H 97 H Pulse Rate [Apical] Pulse Rate from SpO2 Sensor Pulse Rhythm Regular Respiratory Rate 18 24 Respiratory Effort / Characteristics Non-Labored Spontaneous Respiratory Depth Normal Blood Pressure 132/83 Blood Pressure [Right Arm] Blood Pressure Mean 99 Blood Pressure Mean [Right Arm] Pulse Oximetry 98 Oxygen Delivery Method Room Air Room Air Sepsis Recent Fever Within 48 Hours No Sepsis Action Taken by Nursing No Action Required 04/02/19 20:30 04/02/19 20:45 04/02/19 21:00 Temperature Temperature Source Pulse Rate 93 H 102 H 99 H Pulse Rate [Apical] Pulse Rate from SpO2 Sensor 102 H 99 H Pulse Rhythm Respiratory Rate 18 21 22 Respiratory Effort / Characteristics Respiratory Depth Blood Pressure Blood Pressure [Right Arm] Blood Pressure Mean Blood Pressure Mean [Right Arm] Pulse Oximetry 98 97 Oxygen Delivery Method Sepsis Recent Fever Within 48 Hours Sepsis Action Taken by Nursing 04/02/19 21:15 04/02/19 21:30 04/02/19 21:45 Temperature Temperature Source Pulse Rate 105 H 100 H 105 H Pulse Rate [Apical] Pulse Rate from SpO2 Sensor 105 H 100 H 105 H Pulse Rhythm Respiratory Rate 22 21 29 H Respiratory Effort / Characteristics Respiratory Depth Blood Pressure Blood Pressure [Right Arm] Blood Pressure Mean Blood Pressure Mean [Right Arm] Pulse Oximetry 98 93 93 Oxygen Delivery Method Sepsis Recent Fever Within 48 Hours Sepsis Action Taken by Nursing 04/02/19 22:00 04/02/19 22:15 01/30/20 22:30 Temperature Temperature Source Pulse Rate 97 H 100 H 104 H Pulse Rate [Apical] Pulse Rate from SpO2 Sensor 98 H 104 H Pulse Rhythm Respiratory Rate 20 23 27 H Respiratory Effort / Characteristics Respiratory Depth Blood Pressure Blood Pressure [Right Arm] Blood Pressure Mean Blood Pressure Mean [Right Arm] Pulse Oximetry 100 97 Oxygen Delivery Method Sepsis Recent Fever Within 48 Hours Sepsis Action Taken by Nursing 04/02/19 22:36 04/03/19 00:00 Temperature Temperature Source Pulse Rate 103 H Pulse Rate [Apical] 100 H Pulse Rate from SpO2 Sensor 103 H Pulse Rhythm Respiratory Rate 22 20 Respiratory Effort / Characteristics Non-Labored Respiratory Depth Normal Blood Pressure 127/70 Blood Pressure [Right Arm] 132/73 Blood Pressure Mean 90 Blood Pressure Mean [Right Arm] 92 Pulse Oximetry 98 100 Oxygen Delivery Method Room Air Sepsis Recent Fever Within 48 Hours Sepsis Action Taken by Prison Medications Current Medication List: was personally reviewed by me Laboratory Data Attestation: I reviewed the patient's lab results. Result diagrams: 04/02/19 20:16 04/02/19 20:16 Lab Results 04/02/19 04/02/19 04/02/19 Range/Units 20:16 20:16 20:16 WBC 4.25 L (4.8-10.8) K/uL RBC 2.67 L (4.7-6.1) M/uL Hgb 7.9 L (14.0-18.0) g/dL Hct 24.5 L (42-52) % MCV 91.8 (80-100) fL MCH 29.6 (25-34) pg MCHC 32.2 (32-36) g/dL RDW Std Deviation 72.0 H (36.4-46.3) fL RDW Coeff of Ruth 21.4 H (11.5-14.5) % Plt Count 29 L* (130-400) K/uL MPV 9.9 (7.4-10.4) fL Immature Gran % (Auto) 0.5 % Neut % (Auto) 20.3 % Lymph % (Auto) 69.6 % Stone % (Auto) 9.2 % Eos % (Auto) 0.2 % Baso % (Auto) 0.2 % Immature Gran # (Auto) 0.02 (0.00-0.02) K/uL Neut # (Auto) 0.86 L* (1.4-6.5) K/uL Lymph # (Auto) 2.96 (1.2-3.4) K/uL Stone # (Auto) 0.39 (0.11-0.59) K/uL Eos # (Auto) 0.01 (0-0.5) K/uL Baso # (Auto) 0.01 (0-0.2) K/uL Absolute Nucleated RBC 0.03 H (0-0) K/uL Nucleated RBC % (auto) 0.7 % Platelet Estimate Decreased L (Normal) Hypochromasia Present Rouleaux 2+ PT 10.4 (9.0-12.0) Seconds INR 1.0 (0.9-1.1) APTT 21.9 (21.0-31.0) Seconds PTT Ratio 0.8 Sodium 137 (136-145) mmol/L Potassium 3.6 (3.5-5.1) mmol/L Chloride 107 (98-107) mmol/L Carbon Dioxide 23 (21-32) mmol/L Anion Gap 7.0 (3-11) BUN 15 (7-18) mg/dl Creatinine 0.92 (0.6-1.4) mg/dl Est Cr Clr Drug Dosing 104.3 ml/min Est GFR ( Amer) 111.2 Est GFR (Non-Af Amer) 96.0 BUN/Creatinine Ratio TNP Glucose 104 H (70-99) mg/dl Calcium 9.5 (8.5-10.1) mg/dl Magnesium (1.8-2.4) mg/dl Total Bilirubin 0.2 (0.2-1) mg/dl AST 34 (15-37) U/L ALT 38 (12-78) U/L Alkaline Phosphatase 69 (45-117) U/L Troponin I 0.019 (0-0.045) ng/ml Total Protein 10.0 H (6.4-8.2) gm/dl Albumin 3.0 L (3.4-5.0) gm/dl Globulin 7.0 H (2.5-4.0) gm/dl Albumin/Globulin Ratio 0.4 L (0.9-2) Lipase 205 (73-393) U/L TSH (0.300-4.500) uIu/ml Blood Type Antibody Screen 04/02/19 04/02/19 Range/Units 20:16 20:36 WBC (4.8-10.8) K/uL RBC (4.7-6.1) M/uL Hgb (14.0-18.0) g/dL Hct (42-52) % MCV (80-100) fL MCH (25-34) pg MCHC (32-36) g/dL RDW Std Deviation (36.4-46.3) fL RDW Coeff of Ruth (11.5-14.5) % Plt Count (130-400) K/uL MPV (7.4-10.4) fL Immature Gran % (Auto) % Neut % (Auto) % Lymph % (Auto) % Stone % (Auto) % Eos % (Auto) % Baso % (Auto) % Immature Gran # (Auto) (0.00-0.02) K/uL Neut # (Auto) (1.4-6.5) K/uL Lymph # (Auto) (1.2-3.4) K/uL Stone # (Auto) (0.11-0.59) K/uL Eos # (Auto) (0-0.5) K/uL Baso # (Auto) (0-0.2) K/uL Absolute Nucleated RBC (0-0) K/uL Nucleated RBC % (auto) % Platelet Estimate (Normal) Hypochromasia Rouleaux PT (9.0-12.0) Seconds INR (0.9-1.1) APTT (21.0-31.0) Seconds PTT Ratio Sodium (136-145) mmol/L Potassium (3.5-5.1) mmol/L Chloride (98-107) mmol/L Carbon Dioxide (21-32) mmol/L Anion Gap (3-11) BUN (7-18) mg/dl Creatinine (0.6-1.4) mg/dl Est Cr Clr Drug Dosing ml/min Est GFR ( Amer) Est GFR (Non-Af Amer) BUN/Creatinine Ratio Glucose (70-99) mg/dl Calcium (8.5-10.1) mg/dl Magnesium 1.9 (1.8-2.4) mg/dl Total Bilirubin (0.2-1) mg/dl AST (15-37) U/L ALT (12-78) U/L Alkaline Phosphatase (45-117) U/L Troponin I (0-0.045) ng/ml Total Protein (6.4-8.2) gm/dl Albumin (3.4-5.0) gm/dl Globulin (2.5-4.0) gm/dl Albumin/Globulin Ratio (0.9-2) Lipase (73-393) U/L TSH 1.490 (0.300-4.500) uIu/ml Blood Type B Positive Antibody Screen NEGATIVE Imaging Data Radiologist's Impression: Radiology results as stated below per my review and the radiologist's interpretation: SINGLE VIEW CHEST CLINICAL HISTORY: Atypical chest pain. FINDINGS: An AP, portable, upright chest radiograph is compared to study dated 04/05/2016. The examination is degraded by portable technique and patient rotation. The heart is mildly enlarged noting atherosclerotic calcification of the thoracic aorta. The pulmonary vasculature is noncongested. Atelectasis is seen at the lung bases. The lungs and pleural spaces are otherwise clear. No pneumothorax is seen. The bony thorax is grossly intact. IMPRESSION: Mild cardiac enlargement with no acute cardiopulmonary abnormality. ACT 112: Negative or not required by law. Electronically signed by: Alen Patterson M.D. 04/02/2019 8:54 PM ECG Data Attestation: I personally reviewed and interpreted this ECG as follows: Indication: + weakness Rate (beats per minute): 102 Rhythm: sinus tachycardia ECG Intervals/blocks: + Left bundle branch block ECG ST segments: no ST elevation ECG Findings: + Other (left atrial enlargement); no PVCs Blood Pressure Blood Pressure Findings: Elevated blood pressure Blood Pressure Disposition: further management by hospitalist Discharge Plan Visit Data Chief Complaint: Chest Pain Stated Complaint: CHEST PAINS, CARDIAC HX ED Provider: Michael Suh Discharge Problem: Symptomatic anemia, Pancytopenia, Neutropenia, Splenomegaly Patient Disposition: Being Evaluated by Hospitalist Forms Stand Alone Forms: Call Back Authorization, [facility] Prescriptions Prescriptions: No Action benzonatate 100 mg capsule 100 mg PO TID PRN (Reason: Cough) RF: 0 montelukast 10 mg tablet 10 mg PO DAILY PRN (Reason: Allergic Reaction) RF: 0 albuterol sulfate 90 mcg/actuation HFA aerosol inhaler 1 - 2 puff INHALATION .Q4-6HRS RF: 0 fluticasone propionate 50 mcg/actuation spray,suspension 2 spray INTRANASAL DAILY PRN (Reason: Nasal Congestion) RF: 0 Referrals Referrals: Teo Ernst DO [Primary Care Provider] - Discharge Problem: Neutropenia Qualifiers: Neutropenia type: unspecified Qualified Code(s): D70.9 - Neutropenia, unspecified The scribe's documentation has been prepared under my direction and personally reviewed by me in its entirety. I confirm that the note above accurately reflects all work, treatment, procedures, and medical decision making performed by me.
[2019-04-03 01:07] LABS: Lyme Ab IgG w/WB Rflx Positive (Negative); Lyme Ab IgM w/WB Rflx Positive (Negative)
[2019-04-03] MEDS ORDERED: LORazepam 0.5 MG/1 ML VIAL IV PRN (01:33)
[2019-04-03] MEDS ORDERED: PROMETHAZINE HCL 12.5 MG in SODIUM CHLORIDE 0.9% 50 ML IV PRN (01:33)
[2019-04-03] MEDS ORDERED: SODIUM CHLORIDE 0.9% 250 ML IV PRN (01:33)
[2019-04-03] MEDS ORDERED: POTASSIUM CHLORIDE 20 MEQ TABCR PO STA (01:33)
[2019-04-03] MEDS ORDERED: ACETAMINOPHEN 325 MG TAB PO PRN (01:33)
[2019-04-03] MEDS ORDERED: MAGNESIUM SULFATE / D5W 1 GM/100 ML BAG IV ONE (02:30)
[2019-04-03] MEDS: DOXYCYCLINE HYCLATE 100 MG CAP PO SCH ×2 (07:47→20:12)
[2019-04-03] MEDS: METOPROLOL TARTRATE 25 MG TAB PO SCH ×2 (09:25→20:13)
[2019-04-03] MEDS ORDERED: IOVERSOL 100ml IV PRN (09:37)
[2019-04-03] MEDS ORDERED: ALUMINUM/MAGNESIUM SUSP 50 ML, DiphenhydrAMINE Syrup 125 MG, LIDOCAINE HCL 2% VISCOUS 4... PO PRN (09:59)
--- NOTE | 2019-04-03 10:00 | Consultation Report ---
DATE OF CONSULTATION: 04/03/2019 REASON FOR CONSULTATION: Pancytopenia, lymphadenopathy and splenomegaly. HISTORY OF PRESENT ILLNESS: Jason is a very fascinating 53-year-old gentleman who presents to [facility] for 2 weeks of worsening fatigue and shortness of breath. 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 He presented to the facility in [place] and was hospitalized for 2 days. During that time, a battery of tests including CT scan of the chest, abdomen and pelvis was performed revealing diffuse lymphadenopathy and splenomegaly. He was also found to be pancytopenic and was transfused 2 units packed RBCs. Apparently, there were additional labs done which need to be reviewed. Jason expressed desire to return home of [place] and was subsequently released without being seen by meal attendant/oncologist in [place]. Upon arriving home, he presented immediately to [facility]. Interestingly, other than fatigue, he remains asymptomatic including a robust appetite. He has not lost weight. He denies any fevers, chills or night sweats. He reports being bitten by 2 ticks earlier this summer and currently has positive Lyme titers. According to clinical notes, his blood counts in [place] were as follows: WBC 2700, hemoglobin 6.6 with platelet count 56,000. LDH was noted to be elevated as well. CT scan of the chest, abdomen and pelvis from [place] revealed small lymph nodes within the mediastinum, compatible with active lymphoid hyperplasia, enlarged spleen, aortic lymphadenopathy, diffuse heterogeneous. The liver were small, hypodense nodules seen throughout the liver. PAST MEDICAL HISTORY: Negative. PAST SURGICAL HISTORY: Negative. CURRENT MEDICATIONS: Albuterol 1-2 puffs inhaled q.4 hours p.r.n., Tessalon Perles 100 mg p.o. t.i.d. p.r.n., Flonase 2 sprays intranasally daily as needed, Singulair 10 mg p.o. daily p.r.n. ALLERGIES: No known drug allergies. SOCIAL HISTORY: Again, patient is employed fulltime as discussed in the HPI. Negative for cigarettes. He is a tobacco chewer, positive for social alcohol. FAMILY HISTORY: Noncontributory. REVIEW OF SYSTEMS: Again, most notably for fatigue and dyspnea. GENERAL: Negative for fevers, chills or night sweats. He is not anorexic or losing weight. SKIN: No rashes or lesions. No history of dermatoses. HEENT: He denies headaches, lightheadedness or dizziness. No acute visual or hearing deficits. No sinus symptoms, sore throat or dysphagia. LYMPH: No history of lymphoproliferative disease. CARDIAC: Positive for tachycardia. No angina or palpitations otherwise. PULMONARY: He was complaining of shortness of breath and dyspnea on exertion. Apparently, has an underlying history of asthma. He is on bronchodilators. No cough or hemoptysis. GASTROINTESTINAL: Negative for abdominal pain, nausea, vomiting, diarrhea or constipation, hematochezia or melena stools. GENITOURINARY: No hematuria, dysuria, urinary incontinence. PSYCHIATRIC: Negative for anxiety, depression or psychoses by history. ENDOCRINE: Negative for diabetes or thyroid disease. NEUROLOGIC: Negative for seizure, stroke, or migraine headache. MUSCULOSKELETAL: Positive for generalized weakness. No arthralgias or myalgias by history. HEMATOLOGIC: Positive for pancytopenia. PHYSICAL EXAMINATION: GENERAL: Very pleasant 53-year-old well-nourished gentleman, awake, alert and appropriate, in no acute distress. VITAL SIGNS: Temperature 36.6, pulse 96, respiratory rate 18, blood pressure 133/81. SKIN: Warm, dry, noncyanotic without petechia, rash or ecchymosis. HEENT: Head is atraumatic, normocephalic. Eyes: PERRLA, EOMI. Sclerae nonicteric. No conjunctival injection. Nares patent without rhinorrhea or discharge. Throat clear. Tongue midline. Mucous membranes are moist. No buccal lesions or ulcerations noted. LYMPHATICS: No palpable cervical, supraclavicular, axillary or inguinal nodes. HEART: Regular rate and rhythm. No clicks, rubs, murmurs or gallops. LUNGS: Clear to auscultation bilaterally. ABDOMEN: Soft, nontender, nondistended, could not appreciate hepatosplenomegaly. Bowel sounds are active. No rigidity or guarding. EXTREMITIES: Musculoskeletal strength is equal as are pulses in all 4 quadrants. No clubbing, cyanosis or edema. NEUROLOGICALLY: He is awake, alert and oriented x3. Cranial nerves are grossly intact. LABORATORY DATA: WBC count 40-50, hemoglobin 7.9, platelet count 29,000, absolute neutrophil count 860. He has got a few nucleated RBCs. Coags are within normal limits. Sodium 137, potassium 3.6, chloride 107, carbon dioxide 23, BUN 15, creatinine 0.92. Transaminases are within normal limits. His globulin level is elevated. Albumin is low. Total protein 10. He has a positive IgM and IgG titer for Lyme's disease. IMPRESSION: 1. Fatigue/generalized weakness. 2. Pancytopenia. 3. Lymphadenopathy of unclear origin. 4. Hypoalbuminemia. 5. Elevated globulin level. 6. Positive Lyme titers. PLAN: Mr. Moreno is a very pleasant 53-year-old gentleman who presents with a constellation of signs and symptoms suggestive of an emerging lymphoproliferative process. Mr. Moreno has been struggling over the last couple of weeks, actually presented to hospital while working in [place], [place], a complete battery of tests were done. He received 2 units of packed RBCs. According to medical documents, CT scan done there revealed diffuse lymphadenopathy and splenomegaly. He also has positive Lyme titers which sort of confuses the clinical picture. He has an elevated globulin fraction with rouleaux formation which may suggest an underlying plasma cell dyscrasia. SPEP with immunofixation should be added to the diagnostic workup. A bone marrow biopsy and aspiration will probably need to be done as well. I did take the liberty of ordering CT scan of the neck, chest, abdomen and pelvis to see if there is readily assessable lymphadenopathy for extraction and evaluation. This gentleman is not exhibiting B symptoms which is not characteristic for emerging lymphoproliferative disease. Agree with current medical management. Would continue to support his hemoglobin with transfusion. Obviously, ID should be consulted to look into the Lyme, the possibility of active Lyme's disease. We will continue to follow this gentleman closely through hospitalization. Thank you very much for allowing me to participate in his care.
--- NOTE | 2019-04-03 10:15 | CT Scan Report ---
CT abd pelvis oral and IV con CLINICAL HISTORY: Lymphadenopathy COMPARISON STUDY: None. TECHNIQUE: The patient was scanned following administration of dilute oral contrast, and in a dynamic helical fashion during intravenous administration of 94 cc of Optiray 320. A dose lowering techniqu e was utilized adhering to the principles of ALARA. CT DOSE: FINDINGS: Lower chest: The heart is normal in size and configuration, without pericardial effusion. The lung ba ses and pleural spaces are clear. Liver: There is subtle inhomogeneous hepatic enhancement without evidence of a discrete mass. The por gamaliel vein is patent. The hepatic veins appear patent. There is no ductal dilatation. Gallbladder: Unremarkable. Spleen: The spleen is enlarged measuring 22 cm. Pancreas: Unremarkable. Adrenal glands: Unremarkable. Kidneys: There is symmetric renal cortical enhancement. The kidneys are normal in size without hydron ephrosis. Bowel: There are no transition zones indicate bowel obstruction. There is no evidence of acute divert iculitis. The appendix appears normal. Peritoneum: There is no intraperitoneal free air or abdominal ascites. There is a small right inguina l hernia. This contains a small portion of the right anterior lateral bladder. Vasculature: The abdominal aorta is normal in course and caliber. Adenopathy: There are mildly enlarged aortocaval lymph nodes which appear pathologic. There are borde rline enlarged portacaval lymph nodes. Pelvic viscera: There is mild prostatomegaly Skeletal structures: No destructive osseous lesions are seen. IMPRESSION: 1. Moderate to marked splenomegaly (22 cm) 2. Mild aortocaval lymphadenopathy, and borderline enlarged geoffrey hepatis nodes. 3. A lymphoproliferative disorder is a diagnosis of exclusion and further workup is advocated 4. No evidence of bowel obstruction. No evidence of free air 5. No acute inflammatory changes 6. Slight heterogeneity in hepatic enhancement without evidence of a focal mass ACT 112: Negative or not required by law. Electronically signed by: Iftikhar Strauss M.D. 04/03/2019 10:14 AM
--- NOTE | 2019-04-03 10:23 | CT Scan Report ---
CT soft tissue neck w con HISTORY: Lymphadenopathy TECHNIQUE: Multiaxial CT images of the neck were performed following the use of intravenous contrast. COMPARISON STUDY: None. FINDINGS: The visualized brain parenchyma and orbits are within normal limits. The lung apices are cl ear. No suspicious lytic or blastic osseous lesions. The major cervical vessels are patent. The thyro id gland enhances normally. The major salivary glands enhance symmetrically. No masses or abscess chaitanya ntified within the neck. The contours of the hypopharynx are within normal limits. The epiglottis and prevertebral soft tissues are normal in thickness. The cervical lymph nodes are subcentimeter in siz e and do not meet CT criteria for pathologic involvement. Dominant left lower posterior cervical marshal n lymph node on image 162 measures 9 x 7 mm. There is suggestion of mildly enlarged left supraclavicu lar lymph nodes with associated fat stranding. Dominant lymph node measures approximately 1 cm. Howev er, these are difficult to assess due to the streak artifact from the contrast within the adjacent ve ssels. IMPRESSION: 1. No definite cervical lymphadenopathy. 2. Suggestion of mildly enlarged left supraclavicular lymph nodes measuring up to 1 cm. These demonst rate mild surrounding fat stranding. However, these are difficult to assess due to the streak artifac t from the contrast within the adjacent vessels. Follow-up ultrasound may help for further evaluation . ACT 112: Negative or not required by law. Electronically signed by: Rickie Pacheco M.D. 04/03/2019 10:22 AM
--- NOTE | 2019-04-03 13:01 | Electrocardiogram Report ---
Test Reason : Blood Pressure : / mmHG Vent. Rate : 102 BPM Atrial Rate : 102 BPM P-R Int : 156 ms QRS Dur : 142 ms QT Int : 376 ms P-R-T Axes : 062 022 240 degrees QTc Int : 490 ms Sinus tachycardia Possible Left atrial enlargement Left bundle branch block Abnormal ECG When compared with ECG of 05-APR-2016 08:49, Nonspecific T wave abnormality, worse in Inferior leads Confirmed by Sorin Schwarz ([id number]) on 04/03/2019 1:00:43 PM Referred By: REFERRED SELF Confirmed By:Abdias Schwarz
[2019-04-03 13:23] LABS: Hematocrit (blood only) 21.9 % (42-52); Hemoglobin 7.1 g/dL (14.0-18.0); Mean Corpuscular Hemoglobin 29.7 pg (25-34); Mean Corpuscular Hgb Conc 32.4 g/dL (32-36); Mean Corpuscular Volume 91.6 fL (80-100); Mean Platelet Volume 10.6 fL (7.4-10.4); Platelet Count 29 K/uL (130-400); RDW Coefficient of Variation 21.3 % (11.5-14.5); RDW Standard Deviation 72.1 fL (36.4-46.3); Red Blood Count 2.39 M/uL (4.7-6.1); White Blood Count 2.79 K/uL (4.8-10.8)
--- NOTE | 2019-04-03 13:26 | Infectious Disease Consult ---
Date of Consultation April 03, 2019 Assessment & Plan (1) Fatigue: doubt related to lyme disease but can continue doxy pending western blot, if + would give 14 days. agree wiht additional workup for lymphoma. can change doxy to po. no new ID recs at this time, ok for d/c when otherwise stable. History of Present Illness Attending Physician: Teo Kee MD pt admitted with fatigue. was recently in [place] for work and admitted there briefly for same. ct done and showed enlarged spleen, multiple nodes and concern for lymphoma, also found to have pancytopenia. was d/c with plans tofollow up for ongoing workup and readmitted, still with pancytopenia. heme onc following. Had diagnosis of lyme disease this summer after tick bite, 10/2018 titers negative, took partial doxy, now due to fatigue lyme repeated, screen +, wb pending, placed on IV doxy, tolerating well. denies f/c. no sob, cough, cp, no abd pain, no n/v/d. eating well. no gu symptoms, no joint pain, swelling, no new tick bites, rashes. ID consulted for abnormal lyme screen, pt is asking to go home. Allergies Allergy/AdvReac Type Severity Reaction Status Date / Time No Known Allergies Allergy Unverified 04/02/19 22:17 Home Medications Home Medications Medication Instructions Recorded Confirmed Type albuterol sulfate 1 - 2 puff INHALATION .Q4-6HRS 04/02/19 04/02/19 History benzonatate 100 mg PO TID PRN 04/02/19 04/02/19 History fluticasone propionate 2 spray INTRANASAL DAILY PRN 04/02/19 04/02/19 History montelukast 10 mg PO DAILY PRN 04/02/19 04/02/19 History Patient History Medical History No pertinent past medical history Tachycardia Surgical History No pertinent past surgical history Family History Other No pertinent family history Social History Preferred Language: Syriac Communication Ability: Effective Communications Equipment Operator Required: No Beliefs That Will Affect Care: None Current Living Situation: Alone Feels Safe at Home: Yes Smoking Status: Never smoker Tobacco Type: smokeless tobacco ; Do You Dip or Chew Tobacco: Yes (1/2 can chew/day) ; Hx Alcohol Use: Yes Review of Systems Review of Systems: All systems reviewed & are unremarkable except as noted in HPI & below Physical Exam Constitutional: WD/WN, vitals as above Eyes: PERRL, conjunctivae normal, anicteric sclerae ENMT: external ear and nose normal, oropharynx normal Neck: normal visual inspection Respiratory: normal respiratory effort, lungs clear to auscultation Cardiovascular: RRR, no murmur, no edema Gastrointestinal (Abdomen): normal bowel sounds, soft, nontender, no hepatosplenomegaly Musculoskeletal: no cyanosis or clubbing, extremities motor strength 5/5 Skin: no rashes, warm and dry Psychiatric: A+Ox3, euthymic affect Results & Data Vital Signs (Past 12 Hours) Vital Signs Temp Pulse Pulse Resp BP BP BP 04/03/19 11:33 36.9 C 88 20 137/80 04/03/19 09:17 36.9 C 92 H 18 125/74 04/03/19 08:28 36.6 C 96 H 18 133/81 04/03/19 07:55 36.6 C 87 18 121/78 04/03/19 07:41 36.9 C 88 18 125/75 04/03/19 07:40 36.8 C 86 16 134/77 04/03/19 07:25 36.9 C 88 16 125/75 04/03/19 07:00 89 04/03/19 03:58 37.2 C 105 H 18 129/74 04/03/19 01:57 95 H 04/03/19 01:25 36.9 C 97 H 16 114/64 Pulse Ox 04/03/19 11:33 98 04/03/19 09:17 97 04/03/19 08:28 98 04/03/19 07:55 97 04/03/19 07:41 95 04/03/19 07:40 97 04/03/19 07:25 95 04/03/19 07:00 04/03/19 03:58 97 04/03/19 01:57 04/03/19 01:25 97 PG Care Time/CCT Total # of Minutes Spent Total Time Spent with Patient: Total time spent is greater than 50% in coordination of care (as documented) at patient's floor/unit and/or counseling patient: Coding Level of Care Code 96663 Inpt Consult Level 4 Diagnoses Fatigue R53.83
[2019-04-03 13:33] LABS: Basophils # (auto) 0.01 K/uL (0-0.2); Basophils % (auto) 0.4 %; Immature Granulocytes # (auto) 0.01 K/uL (0.00-0.02); Immature Granulocytes % (auto) 0.4 %; Lymphocytes # (auto) 1.87 K/uL (1.2-3.4); Monocytes # (auto) 0.31 K/uL (0.11-0.59); Monocytes % (auto) 11.1 %; Neutrophils # (auto) 0.59 K/uL (1.4-6.5); Neutrophils % (auto) 21.1 %
[2019-04-03 13:35] LABS: Rouleaux 2+
--- NOTE | 2019-04-03 14:26 | Consultation Report ---
DATE OF CONSULTATION: 04/03/2019 PROCEDURE: Right posterior superior iliac crest bone marrow biopsy and aspiration. INDICATION FOR PROCEDURE: Pancytopenia. ANESTHESIA: 1% Xylocaine (local). PREMEDICATION: 0.5 mg Ativan intravenous. SURGEON: Palmer Samuel DO DESCRIPTION OF PROCEDURE: Mr. Moreno is a pleasant 53-year-old gentleman admitted to [facility] with pancytopenia. Indications for bone marrow biopsy and aspiration were discussed including risks versus benefits, thereafter signed informed consent. The patient was then prepped and draped in sterile fashion cleansing the area with antibacterial swab. I then injected the skin with a small amount of lidocaine creating a wheal and then proceeded to anesthetize the periosteum. Local anesthesia was achieved, then introduced the aspirate needle into the bone marrow space and was able to obtain a couple of mL of aspirate for slide preparation flow cytometry and cytogenetics. Unfortunately, the specimen clotted and therefore had to reenter the bone marrow space for additional aspirate. After the aspirate was obtained, I then introduced the bone marrow needle into the bone marrow space and was able to obtain 3/4 cm size core biopsy which was quickly placed in formalin. There were adequate spicules harvested for aspirate slides. The needle was then removed and direct pressure placed until hemostasis achieved. I had the staff nurse apply pressure dressing and the patient is instructed to remain supine to maintain pressure for the next couple of hours. The patient is advised if he develops surrounding erythema or purulent drainage, he needs to notify medical authorities. He tolerated the procedure well and was in good condition postop. Flow cytometry and cytogenetics will probably take 1 week to obtain results. Hopefully, will have pertinent information to convey in the next 24 hours regarding the core biopsy and aspirate smears.
[2019-04-03 16:14] LABS: Hematocrit (blood only) 25.5 % (42-52); Hemoglobin 8.4 g/dL (14.0-18.0)
[2019-04-03 16:57] LABS: Calcium 9.4 mg/dl (8.5-10.1)
[2019-04-03 16:59] LABS: Creatinine Clr Calc Pharmacy 90.4 ml/min; Est GFR (Non-African American) 88.9; Magnesium 2.1 mg/dl (1.8-2.4)
[2019-04-03 17:00] LABS: Potassium 4.5 mmol/L (3.5-5.1)
[2019-04-03] MEDS ORDERED: TRAMADOL HCL 50 MG TABLET PO PRN (17:32)
--- NOTE | 2019-04-03 18:37 | Hospitalist Progress Note ---
Date of Service April 03, 2019 Assessment & Plan (1) Fatigue: Multifactorial : Symptomatic anemia, new diagnosis of pancytopenia with lymphadenopathy (possible lymphoma) ? Lyme disease, partially treated ? Systolic CHF, medication/follow-up noncompliance, some decrease in EF on recent TTE - per admitting physician Pancytopenia. Neutropenia (ANC 0.86) - concern for possible lymphoma given medical records from [place], less likely d/t untreated Lyme disease Neutropenic precautions, neutropenic diet Symptomatic anemia - pt received transfusion of 1 unit of irradiated pRBCs, goal Hgb >8 Inpatient Hematology/ Oncology consultation RE pancytopenia, lymphadenopathy on CT Dr. Samuel evaluated the pt today, CT neck/abd./pelvis - obtained Pt is s/p bone marrow biopsy - results pending Flow cytometry - pending Poss. untreated Lyme disease Lyme screen - pending Doxycycline started empirically -ID (Dr. Mckinney consulted) - not likely d/t Lyme disease, d/c Doxy if Western negative Hx of systolic CHF - no acute exacerbation, also pt is not on any home cardiac medications - outpatient follow-up with [facility] for CHF DVT prophylaxis with SCDs RE thrombocytopenia Full code Patient's , Ms. Tiffani Moreno, can be contacted at # . Subjective Patient is currently lying in bed, in NAD. Received 1 unit of pRBCs. Oncology was consulted, CT scan obtained. Pt also underwent bone marrow biopsy w/ Dr. Samuel. Tolerated well. Pt's at the bedside. Currently pt says he feels well, denies any fevers, chills, chest pain, shortness of breath, abdominal pain, nausea or vomiting. Review of Systems Review of Systems: All systems reviewed & are unremarkable except as noted in HPI & below As per HPI, all 10 systems reviewed, all other ROS negative Constitutional: no fever and no chills Respiratory: no cough and no dyspnea Cardiovascular: no chest pain, no palpitations and no edema Gastrointestinal: no abdominal pain, no nausea and no vomiting Physical Exam Physical Exam: GENERAL: Middle aged male WD/WN, lying in bed in NAD HEENT: NC/AT, EOMI, PERRL NECK : Supple, no tenderness CHEST : Decreased breath sounds , no tenderness, clear to auscultation b/l, no wheezing, rhonchi, crackles HEART : RRR, no obvious murmurs ABDOMEN: posit. bowel sounds, soft, nontender,nondistended, no guarding EXTREMITIES : No LE swelling/tenderness, moves extremities spontaneously SKIN: warm, dry, well perfused, no rashes or lesions NEUROLOGIC : alert and oriented x3, no facial asymmetry,speech fluent, moves all 4 extremities spontaneously LYMPHATIC: no cervical or axillary lymphadenopathy noted Results & Data ([facility]) Vital Signs (Past 12 Hours) Vital Signs Temp Pulse Pulse Resp BP BP BP 04/03/19 15:11 37.2 C 88 18 121/72 04/03/19 14:20 89 04/03/19 13:24 36.7 C 87 16 112/69 04/03/19 11:33 36.9 C 88 20 137/80 04/03/19 09:17 36.9 C 92 H 18 125/74 04/03/19 08:28 36.6 C 96 H 18 133/81 04/03/19 07:55 36.6 C 87 18 121/78 04/03/19 07:41 36.9 C 88 18 125/75 04/03/19 07:40 36.8 C 86 16 134/77 04/03/19 07:25 36.9 C 88 16 125/75 04/03/19 07:00 89 Pulse Ox 04/03/19 15:11 96 04/03/19 14:20 04/03/19 13:24 99 04/03/19 11:33 98 04/03/19 09:17 97 04/03/19 08:28 98 04/03/19 07:55 97 04/03/19 07:41 95 04/03/19 07:40 97 04/03/19 07:25 95 04/03/19 07:00 Laboratory Results 04/03/19 04/03/19 04/03/19 Range/Units 15:57 15:57 13:00 WBC (4.8-10.8) K/uL RBC (4.7-6.1) M/uL Hgb 8.4 L (14.0-18.0) g/dL Hct 25.5 L (42-52) % MCV (80-100) fL MCH (25-34) pg MCHC (32-36) g/dL RDW Std Deviation (36.4-46.3) fL RDW Coeff of Ruth (11.5-14.5) % Plt Count (130-400) K/uL MPV (7.4-10.4) fL Immature Gran % (Auto) % Neut % (Auto) % Lymph % (Auto) % Atlantic % (Auto) % Eos % (Auto) % Baso % (Auto) % Immature Gran # (Auto) (0.00-0.02) K/uL Neut # (Auto) (1.4-6.5) K/uL Lymph # (Auto) (1.2-3.4) K/uL Atlantic # (Auto) (0.11-0.59) K/uL Eos # (Auto) (0-0.5) K/uL Baso # (Auto) (0-0.2) K/uL Absolute Nucleated RBC (0-0) K/uL Nucleated RBC % (auto) % Platelet Estimate (Normal) Hypochromasia Rouleaux Peripher Smr Path Cons PT (9.0-12.0) Seconds INR (0.9-1.1) APTT (21.0-31.0) Seconds PTT Ratio Sodium 137 (136-145) mmol/L Potassium 4.5 D (3.5-5.1) mmol/L Chloride 106 (98-107) mmol/L Carbon Dioxide 28 (21-32) mmol/L Anion Gap 3.0 (3-11) BUN 16 (7-18) mg/dl Creatinine 0.98 (0.6-1.4) mg/dl Est Cr Clr Drug Dosing 90.4 ml/min Est GFR ( Amer) 103.0 Est GFR (Non-Af Amer) 88.9 BUN/Creatinine Ratio Glucose (70-99) mg/dl Fasting Glucose 92 (70-99) mg/dl Calcium 9.4 (8.5-10.1) mg/dl Magnesium 2.1 (1.8-2.4) mg/dl Total Bilirubin (0.2-1) mg/dl AST (15-37) U/L ALT (12-78) U/L Alkaline Phosphatase (45-117) U/L Lactate Dehydrogenase (87-241) U/L Troponin I (0-0.045) ng/ml Total Protein (6.4-8.2) gm/dl Albumin (3.4-5.0) gm/dl Globulin (2.5-4.0) gm/dl Albumin/Globulin Ratio (0.9-2) Lipase (73-393) U/L TSH (0.300-4.500) uIu/ml Lyme Disease IgG Ab (Negative) Lyme IgG (Western Blot) Lyme IgG 18 kDa Band Lyme IgG 23 kDa Band Lyme IgG 28 kDa Band Lyme IgG 30 kDa Band Lyme IgG 39 kDa Band Lyme IgG 41 kDa Band Lyme IgG 45 kDa Band Lyme IgG 58 kDa Band Lyme IgG 66 kDa Band Lyme IgG 93 kDa Band Lyme Disease IgM Ab (Negative) Lyme IgM (Western Blot) Lyme IgM 23 kDa Band Lyme IgM 39 kDa Band Lyme IgM 41 kDa Band BM Chromosome Analysis Pending Flow Cytometry Comment Pending Blood Type Blood Type Recheck Antibody Screen Crossmatch 04/03/19 04/03/19 04/02/19 Range/Units 07:14 07:10 20:40 WBC 2.79 L (4.8-10.8) K/uL RBC 2.39 L (4.7-6.1) M/uL Hgb 7.1 L (14.0-18.0) g/dL Hct 21.9 L (42-52) % MCV 91.6 (80-100) fL MCH 29.7 (25-34) pg MCHC 32.4 (32-36) g/dL RDW Std Deviation 72.1 H (36.4-46.3) fL RDW Coeff of Ruth 21.3 H (11.5-14.5) % Plt Count 29 L* (130-400) K/uL MPV 10.6 H (7.4-10.4) fL Immature Gran % (Auto) 0.4 % Neut % (Auto) 21.1 % Lymph % (Auto) 67.0 % Atlantic % (Auto) 11.1 % Eos % (Auto) 0.0 % Baso % (Auto) 0.4 % Immature Gran # (Auto) 0.01 (0.00-0.02) K/uL Neut # (Auto) 0.59 L* (1.4-6.5) K/uL Lymph # (Auto) 1.87 (1.2-3.4) K/uL Atlantic # (Auto) 0.31 (0.11-0.59) K/uL Eos # (Auto) 0.00 (0-0.5) K/uL Baso # (Auto) 0.01 (0-0.2) K/uL Absolute Nucleated RBC (0-0) K/uL Nucleated RBC % (auto) % Platelet Estimate (Normal) Hypochromasia Rouleaux 2+ Peripher Smr Path Cons Pending PT (9.0-12.0) Seconds INR (0.9-1.1) APTT (21.0-31.0) Seconds PTT Ratio Sodium (136-145) mmol/L Potassium (3.5-5.1) mmol/L Chloride (98-107) mmol/L Carbon Dioxide (21-32) mmol/L Anion Gap (3-11) BUN (7-18) mg/dl Creatinine (0.6-1.4) mg/dl Est Cr Clr Drug Dosing ml/min Est GFR ( Amer) Est GFR (Non-Af Amer) BUN/Creatinine Ratio Glucose (70-99) mg/dl Fasting Glucose (70-99) mg/dl Calcium (8.5-10.1) mg/dl Magnesium (1.8-2.4) mg/dl Total Bilirubin (0.2-1) mg/dl AST (15-37) U/L ALT (12-78) U/L Alkaline Phosphatase (45-117) U/L Lactate Dehydrogenase 172 (87-241) U/L Troponin I (0-0.045) ng/ml Total Protein (6.4-8.2) gm/dl Albumin (3.4-5.0) gm/dl Globulin (2.5-4.0) gm/dl Albumin/Globulin Ratio (0.9-2) Lipase (73-393) U/L TSH (0.300-4.500) uIu/ml Lyme Disease IgG Ab (Negative) Lyme IgG (Western Blot) Lyme IgG 18 kDa Band Lyme IgG 23 kDa Band Lyme IgG 28 kDa Band Lyme IgG 30 kDa Band Lyme IgG 39 kDa Band Lyme IgG 41 kDa Band Lyme IgG 45 kDa Band Lyme IgG 58 kDa Band Lyme IgG 66 kDa Band Lyme IgG 93 kDa Band Lyme Disease IgM Ab (Negative) Lyme IgM (Western Blot) Lyme IgM 23 kDa Band Lyme IgM 39 kDa Band Lyme IgM 41 kDa Band BM Chromosome Analysis Flow Cytometry Comment Blood Type Blood Type Recheck B Positive Antibody Screen Crossmatch 04/02/19 04/02/19 04/02/19 Range/Units 20:36 20:16 20:16 WBC (4.8-10.8) K/uL RBC (4.7-6.1) M/uL Hgb (14.0-18.0) g/dL Hct (42-52) % MCV (80-100) fL MCH (25-34) pg MCHC (32-36) g/dL RDW Std Deviation (36.4-46.3) fL RDW Coeff of Ruth (11.5-14.5) % Plt Count (130-400) K/uL MPV (7.4-10.4) fL Immature Gran % (Auto) % Neut % (Auto) % Lymph % (Auto) % Atlantic % (Auto) % Eos % (Auto) % Baso % (Auto) % Immature Gran # (Auto) (0.00-0.02) K/uL Neut # (Auto) (1.4-6.5) K/uL Lymph # (Auto) (1.2-3.4) K/uL Atlantic # (Auto) (0.11-0.59) K/uL Eos # (Auto) (0-0.5) K/uL Baso # (Auto) (0-0.2) K/uL Absolute Nucleated RBC (0-0) K/uL Nucleated RBC % (auto) % Platelet Estimate (Normal) Hypochromasia Rouleaux Peripher Smr Path Cons PT (9.0-12.0) Seconds INR (0.9-1.1) APTT (21.0-31.0) Seconds PTT Ratio Sodium (136-145) mmol/L Potassium (3.5-5.1) mmol/L Chloride (98-107) mmol/L Carbon Dioxide (21-32) mmol/L Anion Gap (3-11) BUN (7-18) mg/dl Creatinine (0.6-1.4) mg/dl Est Cr Clr Drug Dosing ml/min Est GFR ( Amer) Est GFR (Non-Af Amer) BUN/Creatinine Ratio Glucose (70-99) mg/dl Fasting Glucose (70-99) mg/dl Calcium (8.5-10.1) mg/dl Magnesium (1.8-2.4) mg/dl Total Bilirubin (0.2-1) mg/dl AST (15-37) U/L ALT (12-78) U/L Alkaline Phosphatase (45-117) U/L Lactate Dehydrogenase (87-241) U/L Troponin I (0-0.045) ng/ml Total Protein (6.4-8.2) gm/dl Albumin (3.4-5.0) gm/dl Globulin (2.5-4.0) gm/dl Albumin/Globulin Ratio (0.9-2) Lipase (73-393) U/L TSH (0.300-4.500) uIu/ml Lyme Disease IgG Ab Positive A (Negative) Lyme IgG (Western Blot) Pending Lyme IgG 18 kDa Band Pending Lyme IgG 23 kDa Band Pending Lyme IgG 28 kDa Band Pending Lyme IgG 30 kDa Band Pending Lyme IgG 39 kDa Band Pending Lyme IgG 41 kDa Band Pending Lyme IgG 45 kDa Band Pending Lyme IgG 58 kDa Band Pending Lyme IgG 66 kDa Band Pending Lyme IgG 93 kDa Band Pending Lyme Disease IgM Ab Positive A D (Negative) Lyme IgM (Western Blot) Pending Lyme IgM 23 kDa Band Pending Lyme IgM 39 kDa Band Pending Lyme IgM 41 kDa Band Pending BM Chromosome Analysis Flow Cytometry Comment Blood Type B Positive Blood Type Recheck Antibody Screen NEGATIVE Crossmatch See Detail 04/02/19 04/02/19 04/02/19 Range/Units 20:16 20:16 20:16 WBC (4.8-10.8) K/uL RBC (4.7-6.1) M/uL Hgb (14.0-18.0) g/dL Hct (42-52) % MCV (80-100) fL MCH (25-34) pg MCHC (32-36) g/dL RDW Std Deviation (36.4-46.3) fL RDW Coeff of Ruth (11.5-14.5) % Plt Count (130-400) K/uL MPV (7.4-10.4) fL Immature Gran % (Auto) % Neut % (Auto) % Lymph % (Auto) % Atlantic % (Auto) % Eos % (Auto) % Baso % (Auto) % Immature Gran # (Auto) (0.00-0.02) K/uL Neut # (Auto) (1.4-6.5) K/uL Lymph # (Auto) (1.2-3.4) K/uL Atlantic # (Auto) (0.11-0.59) K/uL Eos # (Auto) (0-0.5) K/uL Baso # (Auto) (0-0.2) K/uL Absolute Nucleated RBC (0-0) K/uL Nucleated RBC % (auto) % Platelet Estimate (Normal) Hypochromasia Rouleaux Peripher Smr Path Cons PT 10.4 (9.0-12.0) Seconds INR 1.0 (0.9-1.1) APTT 21.9 (21.0-31.0) Seconds PTT Ratio 0.8 Sodium 137 (136-145) mmol/L Potassium 3.6 (3.5-5.1) mmol/L Chloride 107 (98-107) mmol/L Carbon Dioxide 23 (21-32) mmol/L Anion Gap 7.0 (3-11) BUN 15 (7-18) mg/dl Creatinine 0.92 (0.6-1.4) mg/dl Est Cr Clr Drug Dosing 104.3 ml/min Est GFR ( Amer) 111.2 Est GFR (Non-Af Amer) 96.0 BUN/Creatinine Ratio TNP Glucose 104 H (70-99) mg/dl Fasting Glucose (70-99) mg/dl Calcium 9.5 (8.5-10.1) mg/dl Magnesium 1.9 (1.8-2.4) mg/dl Total Bilirubin 0.2 (0.2-1) mg/dl AST 34 (15-37) U/L ALT 38 (12-78) U/L Alkaline Phosphatase 69 (45-117) U/L Lactate Dehydrogenase (87-241) U/L Troponin I 0.019 (0-0.045) ng/ml Total Protein 10.0 H (6.4-8.2) gm/dl Albumin 3.0 L (3.4-5.0) gm/dl Globulin 7.0 H (2.5-4.0) gm/dl Albumin/Globulin Ratio 0.4 L (0.9-2) Lipase 205 (73-393) U/L TSH 1.490 (0.300-4.500) uIu/ml Lyme Disease IgG Ab (Negative) Lyme IgG (Western Blot) Lyme IgG 18 kDa Band Lyme IgG 23 kDa Band Lyme IgG 28 kDa Band Lyme IgG 30 kDa Band Lyme IgG 39 kDa Band Lyme IgG 41 kDa Band Lyme IgG 45 kDa Band Lyme IgG 58 kDa Band Lyme IgG 66 kDa Band Lyme IgG 93 kDa Band Lyme Disease IgM Ab (Negative) Lyme IgM (Western Blot) Lyme IgM 23 kDa Band Lyme IgM 39 kDa Band Lyme IgM 41 kDa Band BM Chromosome Analysis Flow Cytometry Comment Blood Type Blood Type Recheck Antibody Screen Crossmatch 04/02/19 Range/Units 20:16 WBC 4.25 L (4.8-10.8) K/uL RBC 2.67 L (4.7-6.1) M/uL Hgb 7.9 L (14.0-18.0) g/dL Hct 24.5 L (42-52) % MCV 91.8 (80-100) fL MCH 29.6 (25-34) pg MCHC 32.2 (32-36) g/dL RDW Std Deviation 72.0 H (36.4-46.3) fL RDW Coeff of Ruth 21.4 H (11.5-14.5) % Plt Count 29 L* (130-400) K/uL MPV 9.9 (7.4-10.4) fL Immature Gran % (Auto) 0.5 % Neut % (Auto) 20.3 % Lymph % (Auto) 69.6 % Atlantic % (Auto) 9.2 % Eos % (Auto) 0.2 % Baso % (Auto) 0.2 % Immature Gran # (Auto) 0.02 (0.00-0.02) K/uL Neut # (Auto) 0.86 L* (1.4-6.5) K/uL Lymph # (Auto) 2.96 (1.2-3.4) K/uL Atlantic # (Auto) 0.39 (0.11-0.59) K/uL Eos # (Auto) 0.01 (0-0.5) K/uL Baso # (Auto) 0.01 (0-0.2) K/uL Absolute Nucleated RBC 0.03 H (0-0) K/uL Nucleated RBC % (auto) 0.7 % Platelet Estimate Decreased L (Normal) Hypochromasia Present Rouleaux 2+ Peripher Smr Path Cons PT (9.0-12.0) Seconds INR (0.9-1.1) APTT (21.0-31.0) Seconds PTT Ratio Sodium (136-145) mmol/L Potassium (3.5-5.1) mmol/L Chloride (98-107) mmol/L Carbon Dioxide (21-32) mmol/L Anion Gap (3-11) BUN (7-18) mg/dl Creatinine (0.6-1.4) mg/dl Est Cr Clr Drug Dosing ml/min Est GFR ( Amer) Est GFR (Non-Af Amer) BUN/Creatinine Ratio Glucose (70-99) mg/dl Fasting Glucose (70-99) mg/dl Calcium (8.5-10.1) mg/dl Magnesium (1.8-2.4) mg/dl Total Bilirubin (0.2-1) mg/dl AST (15-37) U/L ALT (12-78) U/L Alkaline Phosphatase (45-117) U/L Lactate Dehydrogenase (87-241) U/L Troponin I (0-0.045) ng/ml Total Protein (6.4-8.2) gm/dl Albumin (3.4-5.0) gm/dl Globulin (2.5-4.0) gm/dl Albumin/Globulin Ratio (0.9-2) Lipase (73-393) U/L TSH (0.300-4.500) uIu/ml Lyme Disease IgG Ab (Negative) Lyme IgG (Western Blot) Lyme IgG 18 kDa Band Lyme IgG 23 kDa Band Lyme IgG 28 kDa Band Lyme IgG 30 kDa Band Lyme IgG 39 kDa Band Lyme IgG 41 kDa Band Lyme IgG 45 kDa Band Lyme IgG 58 kDa Band Lyme IgG 66 kDa Band Lyme IgG 93 kDa Band Lyme Disease IgM Ab (Negative) Lyme IgM (Western Blot) Lyme IgM 23 kDa Band Lyme IgM 39 kDa Band Lyme IgM 41 kDa Band BM Chromosome Analysis Flow Cytometry Comment Blood Type Blood Type Recheck Antibody Screen Crossmatch Medications Administered Current Inpatient Medications Acetaminophen (Tylenol) 650 mg PO Q4H PRN PRN Reason: Pain or Fever Stop: 05/03/19 01:32 Al Hydrox/Mg Hydrox/Simethicone 50 ml/Diphenhydramine HCl 125 mg/Lidocaine HCl 40 ml/Sucralfate 10,000 mg/ BARCODE IDENTIFIER 1 ea 0 ml PO Q4H PRN PRN Reason: Indigestion Stop: 05/03/19 09:58 Last Admin: 04/03/19 11:37 Dose: 5 ml Documented by: Doxycycline Hyclate (Vibramycin) 100 mg PO BID COUNT INCLUDES THE [facility]; Protocol Stop: 04/13/19 06:44 Last Admin: 04/03/19 07:47 Dose: 100 mg Documented by: Promethazine HCl 12.5 mg/ (Sodium Chloride) 50.5 mls @ 202 mls/hr IV Q6H PRN PRN Reason: Nausea And Vomiting Stop: 05/03/19 01:32 Lorazepam (Ativan) 0.5 mg in 1 mls @ 1 mls/min IV Q4H PRN PRN Reason: Anxiety/Agitation Stop: 05/03/19 01:32 Last Admin: 04/03/19 12:55 Dose: 1 mls/min Documented by: Ioversol (Optiray 320 100ml) 94 ml IV ONCE PRN PRN Reason: Interaction Checking Stop: 04/07/19 09:36 Last Admin: 04/03/19 09:38 Dose: 94 ml Documented by: Lisinopril (Zestril) 2.5 mg PO QAM COUNT INCLUDES THE [facility] Stop: 05/03/19 08:59 Last Admin: 04/03/19 09:26 Dose: 2.5 mg Documented by: Metoprolol Tartrate (Lopressor) 12.5 mg PO BID COUNT INCLUDES THE [facility] Stop: 05/03/19 08:59 Last Admin: 04/03/19 09:25 Dose: 12.5 mg Documented by: Tramadol HCl (Ultram) 25 mg PO Q3H PRN PRN Reason: Pain Stop: 05/03/19 17:31 Last Admin: 04/03/19 18:03 Dose: 25 mg Documented by:
[2019-04-03] MEDS ORDERED: KETOROLAC TROMETHAMINE 15 MG/ML VIAL IV ONE (19:43)
[2019-04-04 08:31] LABS: Hematocrit (blood only) 26.8 % (42-52); Hemoglobin 8.7 g/dL (14.0-18.0); Mean Corpuscular Hemoglobin 29.8 pg (25-34); Mean Corpuscular Hgb Conc 32.5 g/dL (32-36); Mean Corpuscular Volume 91.8 fL (80-100); Mean Platelet Volume 9.4 fL (7.4-10.4); Nucleated RBC # (auto) 0.02 K/uL (0-0); Nucleated RBC % (auto) 0.7 %; Platelet Count 27 K/uL (130-400); RDW Coefficient of Variation 20.7 % (11.5-14.5); RDW Standard Deviation 69.9 fL (36.4-46.3); Red Blood Count 2.92 M/uL (4.7-6.1); White Blood Count 3.45 K/uL (4.8-10.8)
[2019-04-04 08:32] LABS: Basophils # (auto) 0.01 K/uL (0-0.2); Basophils % (auto) 0.3 %; Eosinophils # (auto) 0.01 K/uL (0-0.5); Eosinophils % (auto) 0.3 %; Immature Granulocytes # (auto) 0.01 K/uL (0.00-0.02); Immature Granulocytes % (auto) 0.3 %; Lymphocytes # (auto) 2.32 K/uL (1.2-3.4); Lymphocytes % (auto) 67.2 %; Monocytes # (auto) 0.34 K/uL (0.11-0.59); Monocytes % (auto) 9.9 %; Neutrophils # (auto) 0.76 K/uL (1.4-6.5); Rouleaux 2+
[2019-04-04] MEDS: MoRPHine SULFATE 4 MG/ML 1 ML CARP\\VIAL IV PRN ×2 (08:36→15:29)
[2019-04-04] MEDS: DOXYCYCLINE HYCLATE 100 MG CAP PO SCH ×2 (08:42→20:13)
[2019-04-04] MEDS: METOPROLOL TARTRATE 25 MG TAB PO SCH ×2 (08:43→20:13)
[2019-04-04] MEDS ORDERED: predniSONE 50 MG TAB PO STA (08:48)
[2019-04-04 08:55] LABS: Est GFR (African American) 108.4; Est GFR (Non-African American) 93.5; Magnesium 2.1 mg/dl (1.8-2.4); Potassium 4.4 mmol/L (3.5-5.1)
[2019-04-04 08:56] LABS: Calcium 9.6 mg/dl (8.5-10.1)
[2019-04-04] MEDS: allopurinoL 300 MG TAB PO SCH (10:14)
[2019-04-04 10:31] LABS: Immunoglobulin A 46.7 mg/dl (70-400); Phosphorus 3.9 mg/dl (2.5-4.9); Uric Acid 5.1 mg/dl (2.6-7.2)
--- NOTE | 2019-04-04 11:50 | Progress Note ---
DATE: 04/04/2019 HEMATOLOGIC PROGRESS NOTE DIAGNOSES: 1. Pancytopenia: 1. Lymphadenopathy of unknown origin. 2. Hypoalbuminemia. 3. Elevated globulin level. 4. Positive Lyme titers. 5. Fatigue/generalized weakness. SUBJECTIVE: Jason was seen and examined at bedside, accompanied by his daughter and . He is in good spirits, feels well. Bone marrow biopsy and aspiration was performed yesterday and preliminary diagnosis is probable B-cell non-Hodgkin's lymphoma with 90% plus bone marrow involvement. Thus, the reason for Jason's underlying pancytopenia. There is obvious monoclonality, which would suggest this is most likely a marginal zone lymphoma versus lymphoplasmacytic disorder, perhaps even Waldenstrom's macroglobulinemia. Advised the patient of the preliminary diagnosis and we will prepare him to receive induction chemotherapy once staging is completed. Nursing reports no overnight difficulties. Jason is tolerating his diet and has tolerated transfusions up to date. OBJECTIVE: GENERAL: A very pleasant 53-year-old gentleman in no acute distress. VITAL SIGNS: Temperature 36.6, pulse 88, respiratory rate 20, blood pressure 134/77. SKIN: Without rash or lesion. No evidence of petechiae or ecchymosis. HEENT: Oral mucosa without erythema or ulceration. NECK: Supple. HEART: Regular rate and rhythm. LUNGS: Clear to auscultation bilaterally. ABDOMEN: Soft, nontender, nondistended. EXTREMITIES: No clubbing, cyanosis or edema. NEUROLOGICAL: Grossly intact. LABORATORY DATA: WBC count 3450, hemoglobin 8.7, platelet count 27,000. Sodium 136, potassium 4.4, chloride 105, carbon dioxide 26, creatinine 0.94, BUN 19. RADIOGRAPHIC DATA: A CT scan of the neck, chest, abdomen and pelvis; no definitive cervical adenopathy, suggestion of mildly enlarged left supraclavicular lymph nodes measuring up to 1 cm. Within the abdomen and pelvis; moderate to marked splenomegaly (22 cm), mild aortocaval c palpable lymphadenopathy. Borderline enlarged geoffrey hepatitis lymph nodes. IMPRESSION: 1. B-cell non-Hodgkin's lymphoma, suspect marginal zone versus lymphoplasmacytic variant. 2. Fatigue/generalized weakness. 3. Pancytopenia. 4. Hypoalbuminemia. 5. Elevated globulin level. PLAN: Mr. Moreno is a very pleasant 53-year-old gentleman who had presented to [facility] a couple of days ago with profound fatigue and decreased exercise tolerance. He was found to be severely pancytopenic. Bone marrow biopsy and aspiration was performed yesterday confirming a low-grade non-Hodgkin's lymphoma with diffuse bone marrow involvement. Thus, he is definitely at high risk for tumor lysis syndrome and profound protracted myelosuppression. I empirically started him on oral prednisone today. Await staining to determine induction chemotherapy moving forward. In the meantime, would ask uric acid levels to be drawn and the patient is started on allopurinol 300 mg p.o. daily. Quantitative immunoglobulins will be checked to determine the monoclonal protein present. SPEP and immunofixation is also pending. We will ask general surgery to place a MediPort prior to discharge. I plan on convening with Mr. Moreno very soon after discharge. I would recommend transfusing both packed RBCs and platelets prior to discharge. We will continue to follow Mr. Moreno during his stay. If there are any questions or concerns, feel free to contact me at any time.
[2019-04-04] MEDS ORDERED: SODIUM CHLORIDE 0.9% 250 ML IV PRN ×2 (14:00→14:37)
--- NOTE | 2019-04-04 14:52 | Anesthesiology Consultation ---
Date of Service April 04, 2019 Assessment & Plan Chart Review Chart Review: Acceptable Risk for Surgery Consults Requested none ASA ASA3 Proposed Anesthesia Anesthesia Type: General (b/u) and MAC Risk / Benefits Reviewed With: PT / POA / Parent / Guardian, Accepts Plan and Informed Consent Obtained History Surgery Operation Date: 04/05/19 07:30 Proposed Procedures p Infusaport Insertion - Akanksha Jean Baptiste MD Height/Weight Height: 6 ft Weight: 78.5 kg Allergies Allergy/AdvReac Type Severity Reaction Status Date / Time No Known Allergies Allergy Unverified 04/02/19 22:17 Medications Home Medications Medication Instructions Recorded Confirmed Last Taken albuterol sulfate 1 - 2 puff INHALATION .Q4-6HRS 04/02/19 04/02/19 Unknown benzonatate 100 mg PO TID PRN 04/02/19 04/02/19 Unknown fluticasone propionate 2 spray INTRANASAL DAILY PRN 04/02/19 04/02/19 Unknown montelukast 10 mg PO DAILY PRN 04/02/19 04/02/19 Unknown Active Medications Generic Name Dose Route Start Last Admin Trade Name Freq PRN Reason Stop Dose Admin Allopurinol 300 mg 04/04/19 09:30 04/05/19 08:26 Zyloprim PO 05/04/19 09:29 300 mg DAILY RADHA Administration Al Hydrox/Mg Hydrox/ 0 ml 04/03/19 09:59 04/03/19 11:37 Simethicone 50 ml/ PO 05/03/19 09:58 5 ml Diphenhydramine HCl 125 mg/ Q4H PRN Administration Lidocaine HCl 40 ml/ Indigestion Sucralfate 10,000 mg/ BARCODE IDENTIFIER 1 ea Doxycycline Hyclate 100 mg 04/03/19 06:45 04/05/19 08:26 Vibramycin PO 04/13/19 06:44 100 mg BID RADHA Administration Protocol Lorazepam 0.5 mg in 1 mls @ 1 mls/min 04/03/19 01:33 04/03/19 12:55 Ativan IV 05/03/19 01:32 1 mls/min Q4H PRN Administration Anxiety/Agitation Ioversol 94 ml 04/03/19 09:37 04/03/19 09:38 Optiray 320 100ml IV 04/07/19 09:36 94 ml ONCE PRN Administration Interaction Checking Lisinopril 2.5 mg 04/03/19 09:00 04/05/19 08:26 Zestril PO 05/03/19 08:59 2.5 mg QAM RADHA Administration Metoprolol Tartrate 12.5 mg 04/03/19 09:00 04/05/19 08:26 Lopressor PO 05/03/19 08:59 12.5 mg BID RADHA Administration Morphine Sulfate 4 mg 04/03/19 19:44 04/04/19 15:29 Morphine Sulfate IV 04/17/19 19:43 4 mg Q4H PRN Administration Pain Oxycodone HCl 5 mg 04/03/19 19:44 04/04/19 23:41 Roxicodone Immediate Rel PO 04/17/19 19:43 5 mg Q4H PRN Administration Pain Prednisone 50 mg 04/05/19 09:00 04/05/19 08:26 Prednisone PO 05/05/19 08:59 50 mg DAILY RADHA Administration NPO Date Last Intake of Fluids: 04/04/19 Time Last Intake of Fluids: 23:30 Date Last Intake of Solids: 04/04/19 Time Last Intake of Solids: 22:00 Past Medical History Medical History Chest pain Cath 2017 low normal systolic function Chronic systolic heart failure TTE EF 35 to 40% Neutropenia (Acute) Non-Hodgkin's lymphoma (Suspected) Pancytopenia (Acute) Splenomegaly (Acute) Symptomatic anemia (Acute) Tachycardia Exercise / Class Metabolic Activity II 4-5 Yardwork/Stairs/Walk up hill Past Family History Family History Other No pertinent family history Past Surgical History Surgical History H/O hernia repair History of Achilles tendon repair History of cardiac cath S/P scar revision Past Anesthesia History No Hx of Anesthesia Complications and No Family Hx of Anesthesia Complications History of PONV No Hx of PONV and No Hx of Motion Sickness Social History Smoking Status: Never smoker tobacco type: smokeless tobacco Do You Dip or Chew Tobacco: Yes (1/2 can chew/day) Hx Alcohol Use: Yes alcohol intake frequency: a few times a month Physical Exam Vital Signs Last Vital Signs Temp 36.7 C 04/05/19 08:32 Pulse 86 04/05/19 08:32 Resp 20 04/05/19 08:32 BP 136/85 04/05/19 08:32 Pulse Ox 98 04/05/19 08:32 ENMT Mouth: no TMJ abnormality Thyromental Distance: > or= 3.5 Finger Breadths Mallampati Class: I Neck normal visual inspection and trachea midline; neck extension not limited Respiratory normal respiratory effort Auscultation: lungs clear to auscultation bilaterally Cardiovascular Rate/Rhythm: regular rate and regular rhythm Heart Sounds: + murmur (1/6 FER 2nd ICS) Musculoskeletal Spine: normal cervical ROM Extremities: full ROM of extremities Neurologic moves all extremities Psychiatric Orientation: alert and oriented x 3 Testing Laboratory Results 04/05/19 07:26 04/04/19 07:20 PT 10.4 Seconds (9.0-12.0) 04/02/19 20:16 INR 1.0 (0.9-1.1) 04/02/19 20:16 APTT 21.9 Seconds (21.0-31.0) 04/02/19 20:16 Blood Type B Positive 04/02/19 20:36 Antibody Screen NEGATIVE 04/02/19 20:36 04/05/19 04/05/19 06:06 00:05 POC Glucose 94 155 H Electrocardiogram Date: 04/02/19 Findings: + LBBB and + ST @ (102 bpm) Nonspecific T wave changes Echocardiogram Date: 03/30/19 EF: 35 to 40% LV Function: dysfunctional (Global hypokinesis) Other Findings: + atrial enlargement (Left) Valvular Disease: + no significant valvular disease PA systolic pressure 33 mmHg Stress Test Resting LV Function: dysfunctional Resting RWMA: + hypokinetic Valvular Disease: no significant valvular disease Normal coronary arteries in 2017 per patient
--- NOTE | 2019-04-04 15:55 | Surgery Consultation ---
Date of Consultation April 04, 2019 Assessment & Plan (1) Lymphoma: Diagnosed with NHL. Asked to place port for subsequent chemotherapy. Risks of bleeding, infection, pneumothorax, malfunction, thrombosis reviewed. Consent signed. He would prefer on left side if possible. Low platelets - will need transfusion to 50 for port placement. Low hgb and tranfusion recommended by med oncology - would prefer to have this done prior to port also. Added on to schedule for saturday morning. Present on Admission?: Yes History of Present Illness Reason for Consultation: Teo Kee Requesting Physician: Dallin Paulino Attending Physician: Teo Kee MD History of Present Illness 53 yr old man recently diagnosed with lymphoma on evaluation of weakness/ fatigue. 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 Asked to see regarding port placement. No history of prior central lines. Clavicular fracture as a baby but unsure of what side. No bleeding/ clotting tendency (even with low platelets has not noted subjective increased bleeding). Allergies Allergy/AdvReac Type Severity Reaction Status Date / Time No Known Allergies Allergy Unverified 04/02/19 22:17 Home Medications Home Medications Medication Instructions Recorded Confirmed Type albuterol sulfate 1 - 2 puff INHALATION .Q4-6HRS 04/02/19 04/02/19 History benzonatate 100 mg PO TID PRN 04/02/19 04/02/19 History fluticasone propionate 2 spray INTRANASAL DAILY PRN 04/02/19 04/02/19 History montelukast 10 mg PO DAILY PRN 04/02/19 04/02/19 History Patient History Medical History Chest pain Cath 2016 low normal systolic function Chronic systolic heart failure TTE EF 35 to 40% Neutropenia (Acute) Non-Hodgkin's lymphoma (Suspected) Pancytopenia (Acute) Splenomegaly (Acute) Symptomatic anemia (Acute) Tachycardia Surgical History H/O hernia repair History of Achilles tendon repair History of cardiac cath S/P scar revision Family History Other No pertinent family history Social History Preferred Language: Turkmen Communication Ability: Effective Identity Management Developer Required: No Beliefs That Will Affect Care: None Current Living Situation: Alone Feels Safe at Home: Yes Smoking Status: Never smoker Tobacco Type: smokeless tobacco ; Do You Dip or Chew Tobacco: Yes (1/2 can chew/day) ; Hx Alcohol Use: Yes Review of Systems Review of Systems: All systems reviewed & are unremarkable except as noted in HPI & below Physical Exam Constitutional: WD/WN, vitals as above Eyes: PERRL, conjunctivae normal, anicteric sclerae Neck: trachea midline, no thyromegaly Respiratory: normal respiratory effort, lungs clear to auscultation Cardiovascular: RRR, no murmur, no edema Neurologic: moves all extremities; no focal motor deficits Psychiatric: A+Ox3, euthymic affect Results & Data Vital Signs (Past 12 Hours) Vital Signs Temp Pulse Pulse Resp BP BP Pulse Ox 04/04/19 15:35 36.9 C 87 18 137/79 97 04/04/19 15:20 36.8 C 87 18 129/76 97 04/04/19 15:03 36.7 C 90 16 124/77 97 04/04/19 14:34 37.3 C 97 H 18 122/82 97 04/04/19 14:20 93 H 04/04/19 13:30 36.7 C 94 H 18 131/72 97 04/04/19 08:10 36.6 C 88 20 134/77 99 04/04/19 07:00 76 Laboratory Results 04/04/19 04/04/19 04/04/19 Range/Units 09:04 08:58 07:20 WBC (4.8-10.8) K/uL RBC (4.7-6.1) M/uL Hgb (14.0-18.0) g/dL Hct (42-52) % MCV (80-100) fL MCH (25-34) pg MCHC (32-36) g/dL RDW Std Deviation (36.4-46.3) fL RDW Coeff of Ruth (11.5-14.5) % Plt Count (130-400) K/uL MPV (7.4-10.4) fL Immature Gran % (Auto) % Neut % (Auto) % Lymph % (Auto) % Sebastian % (Auto) % Eos % (Auto) % Baso % (Auto) % Immature Gran # (Auto) (0.00-0.02) K/uL Neut # (Auto) (1.4-6.5) K/uL Lymph # (Auto) (1.2-3.4) K/uL Sebastian # (Auto) (0.11-0.59) K/uL Eos # (Auto) (0-0.5) K/uL Baso # (Auto) (0-0.2) K/uL Absolute Nucleated RBC (0-0) K/uL Nucleated RBC % (auto) % Rouleaux Sodium 136 (136-145) mmol/L Potassium 4.4 (3.5-5.1) mmol/L Chloride 105 (98-107) mmol/L Carbon Dioxide 26 (21-32) mmol/L Anion Gap 5 (3-11) BUN 19 H (7-18) mg/dl Creatinine 0.94 (0.6-1.4) mg/dl Est Cr Clr Drug Dosing 102.0 ml/min Est GFR ( Amer) 108.4 Est GFR (Non-Af Amer) 93.5 Fasting Glucose 91 (70-99) mg/dl Uric Acid 5.1 Cancelled Calcium 9.6 (8.5-10.1) mg/dl Phosphorus 3.9 Cancelled Magnesium 2.1 (1.8-2.4) mg/dl IgG 716.0 (700-1600) mg/dl IgA 46.7 L (70-400) mg/dl IgM 3980.0 H (40-230) mg/dl Blood Type Antibody Screen Crossmatch 04/04/19 04/03/19 04/03/19 Range/Units 07:20 15:57 15:57 WBC 3.45 L (4.8-10.8) K/uL RBC 2.92 L (4.7-6.1) M/uL Hgb 8.7 L 8.4 L (14.0-18.0) g/dL Hct 26.8 L 25.5 L (42-52) % MCV 91.8 (80-100) fL MCH 29.8 (25-34) pg MCHC 32.5 (32-36) g/dL RDW Std Deviation 69.9 H (36.4-46.3) fL RDW Coeff of Ruth 20.7 H (11.5-14.5) % Plt Count 27 L* (130-400) K/uL MPV 9.4 (7.4-10.4) fL Immature Gran % (Auto) 0.3 % Neut % (Auto) 22.0 % Lymph % (Auto) 67.2 % Sebastian % (Auto) 9.9 % Eos % (Auto) 0.3 % Baso % (Auto) 0.3 % Immature Gran # (Auto) 0.01 (0.00-0.02) K/uL Neut # (Auto) 0.76 L* (1.4-6.5) K/uL Lymph # (Auto) 2.32 (1.2-3.4) K/uL Sebastian # (Auto) 0.34 (0.11-0.59) K/uL Eos # (Auto) 0.01 (0-0.5) K/uL Baso # (Auto) 0.01 (0-0.2) K/uL Absolute Nucleated RBC 0.02 H (0-0) K/uL Nucleated RBC % (auto) 0.7 % Rouleaux 2+ Sodium 137 (136-145) mmol/L Potassium 4.5 D (3.5-5.1) mmol/L Chloride 106 (98-107) mmol/L Carbon Dioxide 28 (21-32) mmol/L Anion Gap 3.0 (3-11) BUN 16 (7-18) mg/dl Creatinine 0.98 (0.6-1.4) mg/dl Est Cr Clr Drug Dosing 90.4 ml/min Est GFR ( Amer) 103.0 Est GFR (Non-Af Amer) 88.9 Fasting Glucose 92 (70-99) mg/dl Uric Acid Calcium 9.4 (8.5-10.1) mg/dl Phosphorus Magnesium 2.1 (1.8-2.4) mg/dl IgG (700-1600) mg/dl IgA (70-400) mg/dl IgM (40-230) mg/dl Blood Type Antibody Screen Crossmatch 04/02/19 Range/Units 20:36 WBC (4.8-10.8) K/uL RBC (4.7-6.1) M/uL Hgb (14.0-18.0) g/dL Hct (42-52) % MCV (80-100) fL MCH (25-34) pg MCHC (32-36) g/dL RDW Std Deviation (36.4-46.3) fL RDW Coeff of Ruth (11.5-14.5) % Plt Count (130-400) K/uL MPV (7.4-10.4) fL Immature Gran % (Auto) % Neut % (Auto) % Lymph % (Auto) % Sebastian % (Auto) % Eos % (Auto) % Baso % (Auto) % Immature Gran # (Auto) (0.00-0.02) K/uL Neut # (Auto) (1.4-6.5) K/uL Lymph # (Auto) (1.2-3.4) K/uL Sebastian # (Auto) (0.11-0.59) K/uL Eos # (Auto) (0-0.5) K/uL Baso # (Auto) (0-0.2) K/uL Absolute Nucleated RBC (0-0) K/uL Nucleated RBC % (auto) % Rouleaux Sodium (136-145) mmol/L Potassium (3.5-5.1) mmol/L Chloride (98-107) mmol/L Carbon Dioxide (21-32) mmol/L Anion Gap (3-11) BUN (7-18) mg/dl Creatinine (0.6-1.4) mg/dl Est Cr Clr Drug Dosing ml/min Est GFR ( Amer) Est GFR (Non-Af Amer) Fasting Glucose (70-99) mg/dl Uric Acid Calcium (8.5-10.1) mg/dl Phosphorus Magnesium (1.8-2.4) mg/dl IgG (700-1600) mg/dl IgA (70-400) mg/dl IgM (40-230) mg/dl Blood Type B Positive Antibody Screen NEGATIVE Crossmatch See Detail Diagnostic Findings IMPRESSION: 1. Moderate to marked splenomegaly (22 cm) 2. Mild aortocaval lymphadenopathy, and borderline enlarged geoffrey hepatis nodes. 3. A lymphoproliferative disorder is a diagnosis of exclusion and further workup is advocated 4. No evidence of bowel obstruction. No evidence of free air 5. No acute inflammatory changes 6. Slight heterogeneity in hepatic enhancement without evidence of a focal mass
--- NOTE | 2019-04-04 17:54 | Hospitalist Progress Note ---
Date of Service April 04, 2019 Assessment & Plan (1) Fatigue: Likely Non- Hodgkin Lymphoma Multifactorial : Symptomatic anemia, new diagnosis of pancytopenia with lymphadenopathy (possible lymphoma) ? Lyme disease, partially treated ? Systolic CHF, medication/follow-up noncompliance, some decrease in EF on recent TTE - per sales representative aircraft (admitting physician) Pancytopenia. Neutropenia (current ANC 0.76) - concern for possible lymphoma given medical records from [place], less likely d/t untreated Lyme disease Neutropenic precautions, neutropenic diet Symptomatic anemia - pt received transfusion of 1 unit of irradiated pRBCs on admission, goal Hgb >8 Inpatient Hematology/ Oncology consultation RE pancytopenia, lymphadenopathy on CT Dr. Samuel evaluated the pt yesterday, CT neck/abd./pelvis - obtained Pt is s/p bone marrow biopsy (04/03) - suspicious for non-Hodgkin lymphoma Flow cytometry, cytogenetics - pending - plan for MediPort placement by surgery - goal Plts > 50,000, also recommend to transfuse 1 unit of pRBC Poss. untreated Lyme disease Lyme screen - pending Doxycycline started empirically -ID (Dr. Mckinney consulted) - not likely d/t Lyme disease, d/c Doxy if Western negative Hx of systolic CHF - no acute exacerbation, also pt is not on any home cardiac medications - closely monitor while inpt, jessica. when multiple blood products transfusions administered - outpatient follow-up with [facility] cardiology for CHF DVT prophylaxis with SCDs RE thrombocytopenia Full code Patient's , Ms. Tiffani Moreno, can be contacted at # . Subjective Patient underwent bone marrow biopsy with Dr. Samuel (oncology), currently suspicion for non-Hodgkin lymphoma. Plan for port placement by surgery tomorrow, recommend to transfuse platelets and red blood cells, platelets goal 50,000. Currently patient is lying in bed, in no acute distress, comfortable. Denies any fevers, chills, chest pain, shortness of breath, abdominal pain, nausea or vomiting. Says he overall feels well. Review of Systems Review of Systems: All systems reviewed & are unremarkable except as noted in HPI & below As per HPI, all 10 systems reviewed, all other ROS negative Constitutional: no fever and no chills Respiratory: no cough and no dyspnea Cardiovascular: no chest pain, no palpitations and no edema Gastrointestinal: no abdominal pain, no nausea and no vomiting Physical Exam Physical Exam: GENERAL: Middle aged male WD/WN, lying in bed in NAD HEENT: NC/AT, EOMI, PERRL NECK : Supple, no tenderness CHEST : Decreased breath sounds , no tenderness, clear to auscultation b/l, no wheezing, rhonchi, crackles HEART : RRR, no obvious murmurs ABDOMEN: posit. bowel sounds, soft, nontender,nondistended, no guarding EXTREMITIES : No LE swelling/tenderness, moves extremities spontaneously SKIN: warm, dry, well perfused, no rashes or lesions NEUROLOGIC : alert and oriented x3, no facial asymmetry,speech fluent, moves all 4 extremities spontaneously LYMPHATIC: no cervical or axillary lymphadenopathy noted Results & Data ([facility]) Vital Signs (Past 12 Hours) Vital Signs Temp Pulse Pulse Resp BP BP Pulse Ox 04/04/19 16:35 36.4 C L 87 18 116/62 97 04/04/19 16:07 36.7 C 87 18 130/83 97 04/04/19 15:35 36.9 C 87 18 137/79 97 04/04/19 15:20 36.8 C 87 18 129/76 97 04/04/19 15:03 36.7 C 90 16 124/77 97 04/04/19 14:34 37.3 C 97 H 18 122/82 97 04/04/19 14:20 93 H 04/04/19 13:30 36.7 C 94 H 18 131/72 97 04/04/19 08:10 36.6 C 88 20 134/77 99 04/04/19 07:00 76 Laboratory Results 04/04/19 04/04/19 04/04/19 Range/Units 09:04 08:58 07:20 WBC (4.8-10.8) K/uL RBC (4.7-6.1) M/uL Hgb (14.0-18.0) g/dL Hct (42-52) % MCV (80-100) fL MCH (25-34) pg MCHC (32-36) g/dL RDW Std Deviation (36.4-46.3) fL RDW Coeff of Ruth (11.5-14.5) % Plt Count (130-400) K/uL MPV (7.4-10.4) fL Immature Gran % (Auto) % Neut % (Auto) % Lymph % (Auto) % Williamson % (Auto) % Eos % (Auto) % Baso % (Auto) % Immature Gran # (Auto) (0.00-0.02) K/uL Neut # (Auto) (1.4-6.5) K/uL Lymph # (Auto) (1.2-3.4) K/uL Williamson # (Auto) (0.11-0.59) K/uL Eos # (Auto) (0-0.5) K/uL Baso # (Auto) (0-0.2) K/uL Absolute Nucleated RBC (0-0) K/uL Nucleated RBC % (auto) % Rouleaux Sodium 136 (136-145) mmol/L Potassium 4.4 (3.5-5.1) mmol/L Chloride 105 (98-107) mmol/L Carbon Dioxide 26 (21-32) mmol/L Anion Gap 5 (3-11) BUN 19 H (7-18) mg/dl Creatinine 0.94 (0.6-1.4) mg/dl Est Cr Clr Drug Dosing 102.0 ml/min Est GFR ( Amer) 108.4 Est GFR (Non-Af Amer) 93.5 Fasting Glucose 91 (70-99) mg/dl Uric Acid 5.1 Cancelled Calcium 9.6 (8.5-10.1) mg/dl Phosphorus 3.9 Cancelled Magnesium 2.1 (1.8-2.4) mg/dl IgG 716.0 (700-1600) mg/dl IgA 46.7 L (70-400) mg/dl IgM 3980.0 H (40-230) mg/dl Blood Type Antibody Screen Crossmatch 04/04/19 04/02/19 Range/Units 07:20 20:36 WBC 3.45 L (4.8-10.8) K/uL RBC 2.92 L (4.7-6.1) M/uL Hgb 8.7 L (14.0-18.0) g/dL Hct 26.8 L (42-52) % MCV 91.8 (80-100) fL MCH 29.8 (25-34) pg MCHC 32.5 (32-36) g/dL RDW Std Deviation 69.9 H (36.4-46.3) fL RDW Coeff of Ruth 20.7 H (11.5-14.5) % Plt Count 27 L* (130-400) K/uL MPV 9.4 (7.4-10.4) fL Immature Gran % (Auto) 0.3 % Neut % (Auto) 22.0 % Lymph % (Auto) 67.2 % Williamson % (Auto) 9.9 % Eos % (Auto) 0.3 % Baso % (Auto) 0.3 % Immature Gran # (Auto) 0.01 (0.00-0.02) K/uL Neut # (Auto) 0.76 L* (1.4-6.5) K/uL Lymph # (Auto) 2.32 (1.2-3.4) K/uL Williamson # (Auto) 0.34 (0.11-0.59) K/uL Eos # (Auto) 0.01 (0-0.5) K/uL Baso # (Auto) 0.01 (0-0.2) K/uL Absolute Nucleated RBC 0.02 H (0-0) K/uL Nucleated RBC % (auto) 0.7 % Rouleaux 2+ Sodium (136-145) mmol/L Potassium (3.5-5.1) mmol/L Chloride (98-107) mmol/L Carbon Dioxide (21-32) mmol/L Anion Gap (3-11) BUN (7-18) mg/dl Creatinine (0.6-1.4) mg/dl Est Cr Clr Drug Dosing ml/min Est GFR ( Amer) Est GFR (Non-Af Amer) Fasting Glucose (70-99) mg/dl Uric Acid Calcium (8.5-10.1) mg/dl Phosphorus Magnesium (1.8-2.4) mg/dl IgG (700-1600) mg/dl IgA (70-400) mg/dl IgM (40-230) mg/dl Blood Type B Positive Antibody Screen NEGATIVE Crossmatch See Detail Medications Administered Current Inpatient Medications Acetaminophen (Tylenol) 650 mg PO Q4H PRN PRN Reason: Pain or Fever Stop: 05/03/19 01:32 Allopurinol (Zyloprim) 300 mg PO DAILY [facility] Stop: 05/04/19 09:29 Last Admin: 04/04/19 10:14 Dose: 300 mg Documented by: Al Hydrox/Mg Hydrox/Simethicone 50 ml/Diphenhydramine HCl 125 mg/Lidocaine HCl 40 ml/Sucralfate 10,000 mg/ BARCODE IDENTIFIER 1 ea 0 ml PO Q4H PRN PRN Reason: Indigestion Stop: 05/03/19 09:58 Last Admin: 04/03/19 11:37 Dose: 5 ml Documented by: Doxycycline Hyclate (Vibramycin) 100 mg PO BID [facility]; Protocol Stop: 04/13/19 06:44 Last Admin: 04/04/19 08:42 Dose: 100 mg Documented by: Promethazine HCl 12.5 mg/ (Sodium Chloride) 50.5 mls @ 202 mls/hr IV Q6H PRN PRN Reason: Nausea And Vomiting Stop: 05/03/19 01:32 Lorazepam (Ativan) 0.5 mg in 1 mls @ 1 mls/min IV Q4H PRN PRN Reason: Anxiety/Agitation Stop: 05/03/19 01:32 Last Admin: 04/03/19 12:55 Dose: 1 mls/min Documented by: Sodium Chloride (Nss) 250 mls @ 15 mls/hr IV .[id number] PRN PRN Reason: For Transfusion Stop: 04/05/19 00:00 Sodium Chloride (Nss) 250 mls @ 15 mls/hr IV .[id number] PRN PRN Reason: For Transfusion Stop: 04/05/19 00:39 Ioversol (Optiray 320 100ml) 94 ml IV ONCE PRN PRN Reason: Interaction Checking Stop: 04/07/19 09:36 Last Admin: 04/03/19 09:38 Dose: 94 ml Documented by: Lisinopril (Zestril) 2.5 mg PO QAM [facility] Stop: 05/03/19 08:59 Last Admin: 04/04/19 08:43 Dose: 2.5 mg Documented by: Metoprolol Tartrate (Lopressor) 12.5 mg PO BID [facility] Stop: 05/03/19 08:59 Last Admin: 04/04/19 08:43 Dose: 12.5 mg Documented by: Morphine Sulfate (Morphine Sulfate) 4 mg IV Q4H PRN PRN Reason: Pain Stop: 04/17/19 19:43 Last Admin: 04/04/19 15:29 Dose: 4 mg Documented by: Oxycodone HCl (Roxicodone Immediate Rel) 5 mg PO Q4H PRN PRN Reason: Pain Stop: 04/17/19 19:43 Prednisone (Prednisone) 50 mg PO DAILY [facility] Stop: 05/05/19 08:59
[2019-04-04] MEDS: OXYCODONE HCL IR 5 MG TAB (IMMEDIATE RELEASE) PO PRN (23:41)
[2019-04-05 00:22] LABS: Hematocrit (blood only) 28.3 % (42-52); Hemoglobin 9.4 g/dL (14.0-18.0); Mean Corpuscular Hemoglobin 30.1 pg (25-34); Mean Corpuscular Hgb Conc 33.2 g/dL (32-36); Mean Corpuscular Volume 90.7 fL (80-100); RDW Coefficient of Variation 19.9 % (11.5-14.5); RDW Standard Deviation 65.1 fL (36.4-46.3); Red Blood Count 3.12 M/uL (4.7-6.1); White Blood Count 3.72 K/uL (4.8-10.8)
[2019-04-05 01:03] LABS: Mean Platelet Volume 9.4 fL (7.4-10.4); Platelet Count 37 K/uL (130-400)
[2019-04-05] MEDS ORDERED: CEFAZOLIN 2000MG 2,000 MG/15 ML SYR IV SCH (06:00)
[2019-04-05 07:43] LABS: Hematocrit (blood only) 27.4 % (42-52); Hemoglobin 9.3 g/dL (14.0-18.0); Mean Corpuscular Hemoglobin 30.5 pg (25-34); Mean Corpuscular Volume 89.8 fL (80-100); RDW Standard Deviation 65.3 fL (36.4-46.3); Red Blood Count 3.05 M/uL (4.7-6.1); White Blood Count 3.28 K/uL (4.8-10.8)
[2019-04-05 07:49] LABS: Mean Corpuscular Hgb Conc 33.9 g/dL (32-36); Mean Platelet Volume 8.5 fL (7.4-10.4); Platelet Count 45 K/uL (130-400)
[2019-04-05 08:04] LABS: Immature Granulocytes # (auto) 0.02 K/uL (0.00-0.02); Immature Granulocytes % (auto) 0.6 %; Lymphocytes # (auto) 1.59 K/uL (1.2-3.4); Lymphocytes % (auto) 48.5 %; Monocytes # (auto) 0.36 K/uL (0.11-0.59); Neutrophils # (auto) 1.31 K/uL (1.4-6.5); Neutrophils % (auto) 39.9 %; Rouleaux 3+
[2019-04-05] MEDS: allopurinoL 300 MG TAB PO SCH (08:26)
[2019-04-05] MEDS: DOXYCYCLINE HYCLATE 100 MG CAP PO SCH (08:26)
[2019-04-05] MEDS: METOPROLOL TARTRATE 25 MG TAB PO SCH (08:26)
[2019-04-05] MEDS ORDERED: LIDOCAINE HCL 2% 2 ML VIAL/AMP(20MG/ML) INFIL ONE (08:29)
[2019-04-05] MEDS ORDERED: fentaNYL citrate 100 MCG/2 ML VIAL ONE (08:29)
[2019-04-05] MEDS ORDERED: MIDAZOLAM HCL 1 MG/ML 2ML VIAL ONE ×2 (08:29→09:09)
[2019-04-05] MEDS ORDERED: PROPOFOL IV EMULSION 10 MG/ML 20 ML VIAL IV ONE ×2 (08:30→08:35)
[2019-04-05] MEDS ORDERED: ONDANSETRON INJ 2 MG/ML 2 ML VIAL ONE (08:30)
[2019-04-05] MEDS ORDERED: ONDANSETRON INJ 2 MG/ML 2 ML VIAL IV PRN (08:45)
[2019-04-05] MEDS ORDERED: MoRPHine SULFATE 10 MG/ML CARP/VIAL IV PRN (08:45)
[2019-04-05] MEDS ORDERED: ePHEDrine sulfate 50 MG/ML AMP IV PRN (08:45)
[2019-04-05] MEDS ORDERED: MEPERIDINE HCL 25 MG/ML CARP IV PRN (08:45)
[2019-04-05] MEDS ORDERED: PROMETHAZINE HCL 12.5 MG in SODIUM CHLORIDE 0.9% 50 ML IV PRN (08:45)
[2019-04-05] MEDS ORDERED: fentaNYL citrate 100 MCG/2 ML VIAL IV PRN (08:45)
[2019-04-05] MEDS ORDERED: ATROPINE SULFATE 0.1 MG/ML 10ML SYR IV PRN (08:45)
--- NOTE | 2019-04-05 08:46 | History & Physical Bridge Note ---
Date of Service April 05, 2019 History & Physical Bridge Note I have examined the patient, reviewed the History & Physical and in the interval since the performance of the History & Physical I have noted the following changes of clinical significance: no changes noted Received 1 unit of platelets and counts 45. Getting second unit now.
[2019-04-05] MEDS ORDERED: predniSONE 50 MG TAB PO SCH (09:00)
[2019-04-05] MEDS ORDERED: HEPARIN 100 UNIT/ML 5ML FLUSH ONE (09:01)
[2019-04-05] MEDS ORDERED: LIDOCAINE HCL 1% 20 ML VIAL ONE (09:01)
--- NOTE | 2019-04-05 09:05 | Progress Note ---
DATE: 04/05/2019 DIAGNOSES: 1. B-cell non-Hodgkin's lymphoma, suspect marginal zone versus lymphoplasmacytic variant. 2. Fatigue/generalized weakness. 3. Pancytopenia. 4. Hypoalbuminemia. 5. Elevated IgM. SUBJECTIVE: Jason was seen and examined at bedside. He absolutely has no complaints of pain or discomfort. I empirically placed him on 50 mg of prednisone yesterday in essence to by some time before induction treatment starts. He is receiving platelets about ready to go to the operating room for MediPort placement. He would like to go home after MediPort insertion. Nursing reports no overnight difficulties. OBJECTIVE: GENERAL: A very pleasant 53-year-old gentleman in no acute distress. VITAL SIGNS: Temperature 36.7, pulse 86, respiratory rate 20, blood pressure 136/85. SKIN: Without rash or lesion. HEENT: Oral mucosa without erythema or ulceration. HEART: Regular rate and rhythm. LUNGS: Clear to auscultation bilaterally. ABDOMEN: Soft, nontender, nondistended, without palpable hepatosplenomegaly. EXTREMITIES: No clubbing, cyanosis or edema. NEUROLOGIC: He is grossly intact. LABORATORY DATA: WBC count 3280, hemoglobin 9.3, platelet count 45,000. Absolute neutrophil count 1300, IgM 3980, IgA 46.7, IgG 716. IMPRESSION: 1. B-cell non-Hodgkin's lymphoma, suspected marginal zone versus lymphoplasmacytic variant. 2. Pancytopenia. 3. Hypoalbuminemia. 4. Elevated IgM. 5. Fatigue/generalized weakness. PLAN: Mr. Moreno is a pleasant 53-year-old gentleman recently diagnosed with B-cell non-Hodgkin's lymphoma. Dr. Jean Baptiste will take him to the operating room for MediPort insertion. Staining is pending at the time of today's dictation. His IgM is elevated, which most likely represents monoclonality either from a marginal zone lymphoma or perhaps an underlying Waldenstrom's. Ordered serum viscosity this morning. Again, he remains totally asymptomatic and definitely reasonable for him to be discharged postop if there are no underlying medical issues. We will plan to see him in followup prior to weeks end. Thank you very much for allowing me to participate in his care. We will officially sign off today. [facility] HOSPITALInessa
[2019-04-05] MEDS ORDERED: BUPIVACAINE/EPINEPHRINE 0.5% MPF 1:200,000 10 ML VIAL ONE (09:19)
[2019-04-05] MEDS ORDERED: SODIUM CHLORIDE 0.9% INJ 10 ML VIAL ONE (09:44)
[2019-04-05] MEDS ORDERED: CEFAZOLIN 250 MG/ML 1 GM VIAL ONE (09:44)
--- NOTE | 2019-04-05 09:59 | Operative Report ---
Post Operative Report Pre & Post Diagnosis Operation Date: 04/05/19 07:30 Pre-Op Diagnosis: Lymphoma Post-Op Diagnosis: Lymphoma I identified the patient and participated in the time-out.: Yes Procedure Operation Date: 04/05/19 07:30 Actual Procedures p Infusaport Insertion to Left Subclavian(Left) - Akanksha Jean Baptiste MD Surgeon Akanksha Jean Baptiste MD Children'S Book Author none Estimated Blood Loss 0 Findings Consistent with Post-Op Diagnosis Specimens none Description of Procedure see dictated operative note I attest to the content of the Intraoperative Record and any orders documented therein. Any exceptions are noted below.
--- NOTE | 2019-04-05 10:27 | Anesthesiology Progress Note ---
Date of Service April 05, 2019 Anesthesia Post Procedure Vital Signs Vital Signs: Temp Pulse Pulse Resp BP BP BP 04/05/19 08:32 36.7 C 86 20 136/85 04/05/19 08:14 36.7 C 83 18 132/83 04/05/19 07:15 75 04/05/19 07:04 36.7 C 83 18 126/79 04/05/19 06:27 36.8 C 74 18 122/77 04/05/19 06:00 36.9 C 84 16 118/79 04/05/19 05:45 36.7 C 71 18 111/67 04/05/19 05:21 36.7 C 79 18 114/69 04/05/19 04:00 36.8 C 80 18 122/76 04/05/19 00:11 98 H 04/04/19 23:00 36.5 C 97 H 18 125/76 04/04/19 20:34 36.8 C 97 H 18 114/70 04/04/19 19:46 36.5 C 102 H 18 131/80 04/04/19 19:09 36.6 C 107 H 18 119/73 04/04/19 18:40 36.9 C 103 H 18 122/79 04/04/19 18:24 36.8 C 104 H 18 129/77 04/04/19 18:06 36.4 C L 110 H 16 125/79 04/04/19 18:05 36.4 C L 110 H 16 125/79 04/04/19 16:35 36.4 C L 87 18 116/62 04/04/19 16:07 36.7 C 87 18 130/83 04/04/19 15:35 36.9 C 87 18 137/79 04/04/19 15:20 36.8 C 87 18 129/76 04/04/19 15:03 36.7 C 90 16 124/77 04/04/19 14:34 37.3 C 97 H 18 122/82 04/04/19 14:20 93 H 04/04/19 13:30 36.7 C 94 H 18 131/72 Pulse Ox 04/05/19 08:32 98 04/05/19 08:14 04/05/19 07:15 04/05/19 07:04 95 04/05/19 06:27 96 04/05/19 06:00 97 04/05/19 05:45 97 04/05/19 05:21 98 04/05/19 04:00 95 04/05/19 00:11 04/04/19 23:00 97 04/04/19 20:34 96 04/04/19 19:46 94 04/04/19 19:09 96 04/04/19 18:40 96 04/04/19 18:24 95 04/04/19 18:06 96 04/04/19 18:05 96 04/04/19 16:35 97 04/04/19 16:07 97 04/04/19 15:35 97 04/04/19 15:20 97 04/04/19 15:03 97 04/04/19 14:34 97 04/04/19 14:20 04/04/19 13:30 97 Pain Intensity Right Posterior Hip: Pain Intensity: 6 Transfer of Care Handoff Completed per policy Notes Mental Status: alert / awake / arousable and participated in evaluation Nausea / Vomiting: adequately controlled Pain: adequately controlled Airway Patency, RR, SpO2: stable & adequate BP & HR: stable & adequate Hydration State: stable & adequate Anesthetic Complications: no major complications apparent and Pt Satisfied with anesthetic care
--- NOTE | 2019-04-05 11:05 | XRay Report ---
SINGLE VIEW CHEST CLINICAL HISTORY: Central venous infusion port placement. FINDINGS: An AP, portable, upright chest radiograph is compared to study dated 04/02/2019. A left subc lavian central venous infusion port has been placed. The tip projects over the SVC. The heart is top normal for projection noting atherosclerotic calcification of the thoracic aorta. The pulmonary vascu lature is noncongested. The lungs and pleural spaces are clear. No pneumothorax is seen. The bony tho rax is grossly intact. IMPRESSION: 1. A left subclavian central venous infusion port has been placed as above. No pneumothorax is identi fied post procedure. 2. The lungs are clear. ACT 112: Negative or not required by law. Electronically signed by: Alen Patterson M.D. 04/05/2019 11:03 AM
--- NOTE | 2019-04-05 11:12 | Operative Report ---
DATE OF OPERATION: 04/05/2019 PREOPERATIVE DIAGNOSIS: Non-Hodgkin's lymphoma with need for chemotherapy. POSTOPERATIVE DIAGNOSIS: Non-Hodgkin's lymphoma with need for chemotherapy. OPERATIVE PROCEDURE: Placement of 8-Salvadorean Bard PowerPort left subclavian vein. SURGEON: Akanksha Jean Baptiste MD [employer]ERCIAL REAL ESTATE ATTORNEY: None. ANESTHESIA: Local and IV sedation. ASA: 3. ESTIMATED BLOOD LOSS: Minimal. INTRAVENOUS FLUIDS: 500 mL as well as 1 unit of platelets, which was running SPECIMENS: None. COMPLICATIONS: None. INDICATIONS: Mr. Moreno is a 53-year-old gentleman who was recently diagnosed with non-Hodgkin's lymphoma. He was found to be pancytopenic. He was counseled regarding the need for chemotherapy by Dr. Samuel who requested a Port-A-Cath placement. The patient did receive platelets prior to the surgery. His last platelet count was 47 and he was receiving another unit of platelets during the procedure. DESCRIPTION OF PROCEDURE: The patient received Ancef preoperatively. After the induction of IV sedation, he was positioned with both arms tucked and a roll behind his back, his bilateral upper chest were sterilely prepped and draped. An introducer needle was placed into the left subclavian vein on the second pass. A wire was then placed into this and this was confirmed on fluoroscopy. An inferiorly based subcutaneous pocket was created through a small transverse incision. The Bard 8-Salvadorean PowerPort was placed into this pocket. The catheter was passed from the pocket site to the introducer site. This was then measured to appropriate position. The catheter was then cut and attached to the port and the hub secured down. The catheter was passed over the wire using the Seldinger technique. The port was then secured to the pectoral fascia with 0 Vicryl stitches and all 3 sides of the triangle. The wound was irrigated and noted to be hemostatic. Fluoroscopy was used to confirm no evidence of kinks at the clavicle and that the port tip appeared to be in good position. The port was flushed with 5 mL of heparinized saline. The wound was irrigated. The subcutaneous tissue was reapproximated with interrupted 3-0 Vicryl stitches. The skin was reapproximated with interrupted 4-0 Vicryl stitches. Dermabond and a sterile dressing were applied. He was awakened and taken to recovery in stable condition. I attest to the content of the Intraoperative Record and any orders documented therein. Any exception s are noted below.
[2019-04-05] MEDS: OXYCODONE HCL IR 5 MG TAB (IMMEDIATE RELEASE) PO PRN (14:05)
--- NOTE | 2019-04-05 14:20 | Discharge Summary ---
Date of Service April 05, 2019 Admission HPI Per Admitting Provider History obtained from patient, family, and records. Medical history significant for chronic systolic HF (EF 35 to 40%, TTE 2019), chronic chest pain, chronic LBBB, new diagnosis of pancytopenia/lymphadenopathy, history of tick bite status post incomplete Doxycycline Rx. Patient has had chronic chest pain for years. Abnormal stress test in 2017 led to cardiac catheterization which showed normal coronary arteries, low normal LV function. Aspirin, beta-geo, ANDREA inhibitor medications and outpatient cardiology follow-up visit recommended by business assistant. Patient does not recall getting aforementioned instructions. Recent ER visit October 2018 for muscle aches, history of tick bite exposure. Reactive Lyme screen. Patient noted to be pancytopenic (hemoglobin 10) as per ER blood work. Patient discharged on Doxycycline course. Improved symptoms after a few days of doxycycline Rx. Patient did not complete antibiotic Rx because he does not like taking pills. Unclear if patient was able to follow-up with PCP after ER visit. 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 N o cough symptoms. Intermittent epistaxis episodes as per records. Patient took some leftover doxycycline tablets prescribed by ER provider for tick bite from last year for a few days which led to some improvement in fatigue symptoms. Patient subsequently confined for 2 days at [facility] in [place] for worsening fatigue symptoms. Patient noted to be pancytopenic. Hemoglobin 6.6, platelets 56, WBC 2.7. Serum iron noted to be 61, TIBC 259, ferritin 239, B12 360, TS saturation 24%. Peripheral blood smear showed pancytopenia with relative lymphocytosis and reactive lymphocytes. Rouleaux formation. LFTs, LDH normal. Negative HCV, HBV serologies. CMV, EBV serologies pending at time of discharge. TTE EF 35 to 40%, moderately reduced systolic function, LAE, PASP 35 mm Hg. Liver ultrasound showed diffusely heterogeneous liver without discrete nodules. Lymphomatous invasion cannot be excluded. CT thorax showed multiple small lymph nodes within mediastinum most compatible very active lymph hyperplasia. Enlarged spleen. Heterogeneous liver CT abdomen pelvis: Severe splenomegaly, aortic adenopathy, diffuse heterogeneous appearance of liver. Small hypodense nodules throughout the liver. Consider mononucleosis. Lymphoma cannot have a similar finding, lymphoma with liver nodules suggestive of metastatic foci. Urinary retention. Patient transfused 2 units packed RBC during confinement. Patient discharged after overnight stay at [facility] with instructions to follow-up with local oncologist for possible lymphoma work-up. Upon return to [place], patient noted worsening fatigue symptoms. No chest pain, no unusual shortness of breath. Denies abdominal pain, black/bloody stools. Denies depression. 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 Admission Exam Per Admitting Provider GENERAL: Comfortable, slightly anxious, pleasant, no respiratory distress SKIN: Pallor , warm HEENT: Pale palpebral conjunctivae, no ptosis, dry buccal mucosa NECK : Supple, no tenderness CHEST : Decreased breath sounds , no tenderness HEART : Tachycardic , no obvious murmurs ABDOMEN: Some distention, nontender EXTREMITIES : No LE swelling/tenderness, no other conspicuous deformities noted NEUROLOGIC : Coherent, no facial asymmetry, no other gross focality Principal Diagnosis Pancytopenia, neutropenia secondary to new diagnosis of possible non-Hodgkin lymphoma Discharge Exam GENERAL: Middle aged male WD/WN, lying in bed in NAD HEENT: NC/AT, EOMI, PERRL NECK : Supple, no tenderness CHEST : clear to auscultation b/l, no wheezing, rhonchi, crackles HEART : RRR, no obvious murmurs ABDOMEN: posit. bowel sounds, soft, nontender,nondistended, no guarding EXTREMITIES : No LE swelling/tenderness, moves extremities spontaneously SKIN: warm, dry, well perfused, no rashes or lesions NEUROLOGIC : alert and oriented x3, no facial asymmetry,speech fluent, moves all 4 extremities spontaneously LYMPHATIC: no cervical or axillary lymphadenopathy noted Discharge Data Allergies Allergy/AdvReac Type Severity Reaction Status Date / Time No Known Allergies Allergy Unverified 04/02/19 22:17 Consultations 04/02/19 21:52 ED Decision to Admit Stat 04/03/19 01:33 Consult Hematology Routine 04/03/19 06:57 Consult Infectious Diseases Routine 04/04/19 09:12 Consult General Surgery Routine 04/05/19 13:19 Consult Case Management - Discharge Planning Routine Procedures Performed Operation Date: 04/05/19 07:30 Actual Procedures p Infusaport Insertion to Left Subclavian(Left) - Akanksha Jean Baptiste MD Ordered Studies 04/03/19 06:30 CT soft tissue neck w con Routine 04/03/19 06:31 CT abd pelvis oral and IV con Routine 04/05/19 FL fluoro (infusaport) to 1 hr Routine Hospital Course (1) Fatigue: Likely Non- Hodgkin Lymphoma Multifactorial : Symptomatic anemia, new diagnosis of pancytopenia with lymphadenopathy (possible lymphoma) ? Lyme disease, partially treated ? Systolic CHF, medication/follow-up noncompliance, some decrease in EF on recent TTE - per machining engineer (admitting physician) Pancytopenia. Neutropenia (current ANC 0.76) - concern for possible lymphoma given medical records from [place], less likely d/t untreated Lyme disease Neutropenic precautions, neutropenic diet Symptomatic anemia - pt received transfusion of 1 unit of irradiated pRBCs on admission, goal Hgb >8 Inpatient Hematology/ Oncology consultation RE pancytopenia, lymphadenopathy on CT Dr. Samuel evaluated the pt yesterday, CT neck/abd./pelvis - obtained Pt is s/p bone marrow biopsy (04/03) - suspicious for non-Hodgkin lymphoma Flow cytometry, cytogenetics - pending - increased risk for tumor lysis syndrome, pt started on prednisone and allopurinol - pt is now s/p MediPort placement by surgery - pt was transfused plts for goal Plts > 50,000,he was also transfused 1 unit of pRBC prior to mediport placement - plan for induction chemotherapy later this week by Dr. Jimmie Moreno. untreated Lyme disease Lyme screen - pending Doxycycline started empirically -ID (Dr. Mckinney consulted) - not likely d/t Lyme disease, d/c'ed Doxy as Western blot negative Hx of systolic CHF - no acute exacerbation, also pt is not on any home cardiac medications - closely monitor while inpt, jessica. when multiple blood products transfusions administered - outpatient follow-up with [facility] cardiology for CHF Total Time Total Time Spent Total Time Spent (In Minutes): 40 Total Time Includes: Examination of the Patient, Discharge Planning, Medication Reconciliation and Communication With Other Providers Discharge Plan Discharge Items Patient Disposition: Home - Self-Care Reason For Visit: SYMPTOMATIC ANEMIA Discharge Diagnosis: New diagnosis of possible non-Hodgkin lymphoma Activity: Resume your previous activity Activity Comment: as tolerated, NO strenuous activity Non-emergency contact: Primary Care Provider and Oncologist Call non-emergency contact if: you have any medication questions and your symptoms worsen Follow-up/Referrals: Teo Ernst, DO [Primary Care Provider] - Diet: Regular Diet Comment: Neutropenic diet (food has to be cooked or pasteurized) Addtl Attending Provider Instructions: You will need to follow-up with oncologist, Dr. Samuel. As discussed, there is a plan for induction chemotherapy. Dr. Samuel / his office, will contact you about further management. For pain, you can take Tylenol 1,000 mg 3 times day, max dose is 3,000 mg daily. For more severe pain, take oxycodone as prescribed. Also start taking prednisone daily and allopurinol, discuss with Dr. Samuel about how long you should be on these medications. Mrs. Jason Iraheta is going to contact you regarding you primary care and your medical records. Pending Studies at Discharge: Yes Studies:: Studies ordered by oncologist, Dr. Samuel Stand-Alone Forms: Call Back Authorization, [facility], Smoking Cessation Medications and DC Order Prescriptions: New allopurinol 300 mg Tablet 300 mg PO DAILY 30 Days Qty: 30 RF: 0 prednisone 50 mg Tablet 50 mg PO DAILY 7 Days Qty: 7 RF: 0 oxycodone 5 mg Tablet 5 mg PO Q4H PRN (Reason: pain) Qty: 10 RF: 0 Continued benzonatate 100 mg capsule 100 mg PO TID PRN (Reason: Cough) RF: 0 montelukast 10 mg tablet 10 mg PO DAILY PRN (Reason: Allergic Reaction) RF: 0 albuterol sulfate 90 mcg/actuation HFA aerosol inhaler 1 - 2 puff INHALATION .Q4-6HRS RF: 0 fluticasone propionate 50 mcg/actuation spray,suspension 2 spray INTRANASAL DAILY PRN (Reason: Nasal Congestion) RF: 0 Discharge Orders: Discharge Order (Routine); Ordered 04/05/19 Ordered By: Teo Cowan/Other Patient Handouts: Vascular Access Port Implantation Admission Data Admit Date/Time: 04/02/19 23:39 Attending Provider: Teo Kee Admit Provider: Rad Simeon Primary Care Provider: Teo Ernst Other Interventions: Discharge Summary Assessment (RN) Last Done: 04/05/19 14:45 DC Date/Time DO NOT enter until pt leaves facility: 04/05/19 15:13
[2019-04-08 05:23] LABS: 18KDIGG Band NON-REACTIVE; 23KDIGG Band REACTIVE; 23KDIGM Band NON-REACTIVE; 28KDIGG Band NON-REACTIVE; 30KDIGG Band NON-REACTIVE; 39KDIGG Band NON-REACTIVE; 39KDIGM Band NON-REACTIVE; 41KDIGG Band REACTIVE; 41KDIGM Band NON-REACTIVE; 45KDIGG Band NON-REACTIVE; 58KDIGG Band NON-REACTIVE; 66KDIGG Band NON-REACTIVE; 93KDIGG Band NON-REACTIVE; Lyme Antibodies, WB IgG NEGATIVE (NEGATIVE); Lyme Antibodies, WB IgM NEGATIVE (NEGATIVE)
== END 2019-04-05 15:13 | disposition home or self-care (01) | DRG 841 ==
LOC: ED 20:05 → 2W 04-03

== ENCOUNTER 2019-11-01 12:25 | Observation (INO) ==
[2019-11-01] MEDS ORDERED: ALUMINUM/MAGNESIUM SUSP 30 ML UDC PO PRN (13:16)
[2019-11-01] MEDS ORDERED: ACETAMINOPHEN 325 MG TAB PO PRN (13:16)
[2019-11-01] MEDS ORDERED: ONDANSETRON INJ 2 MG/ML 2 ML VIAL IV PRN (13:16)
--- NOTE | 2019-11-01 13:16 | History & Physical Report ---
Date of Service November 01, 2019 Assessment & Plan (1) Abnormal chest CT: On October [address] patient [address] normal chest [address] which identified a perihilar mass about 3 cm on the right side which appears to be new. Patient is currently undergoing treatment for Waldenstrm's macroglobulinemia since April 2019. He follows with Dr. Rosenberg. Patient has been bothered about unremitting cough as an outpatient. There is no infectious symptomology associate with a cough however his coughing is prompted some strain in his left groin which is likely reminiscent of the beginning of a hernia. Dr. Paulino arrange for direct admission he did speak with Dr. Bharath Hua who is her pulmonary doctor who will review the films and determine whether this mass is amenable to bronchoscopic evaluation discussion with Dr. De La Torre also did note the fact that his CAT scan was from 15 October he do not wish for repeat CT scan until his case was reviewed on 11/02/2019 (2) Waldenstrom macroglobulinemia: Typically follows with Dr. Rosenberg but began treatment for Herrera Iggy's in April 2019 treated with rituximab and bendamustine (3) Nonischemic cardiomyopathy: Patient typically follows in heart failure clinic, last ejection fraction was 30 to 35% with chronic left bundle branch block he is typically is on metoprolol succinate 200 mg in the morning and Entresto twice daily (4) Left inguinal hernia: Patient definitely has some mild change with Valsalva does not appear to be significant or emergent. Certainly to first explore his pulmonary issues may be warranted given the fact that if he were to require surgical repair anesthesia would want his pulmonary dynamics to be optimized (5) DVT prophylaxis: With concern for possible procedure the patient on SCDs and not of chemoprophylaxis until we are clear whether intervention will be required or not. Certainly is at risk of thromboembolism given his current malignancy and we will start enoxaparin when appropriate History of Present Illness Primary Care Provider: Teo Ernst, DO 54-year-old male with a history of Herrera Iggy's macroglobulinemia recently treated with chemotherapy by Dr. Romario Paulino of rituximab and bendamustine, was recommended for admission with persistent cough x6 weeks. The cough prompted worsening of a right inguinal hernia. In recent imaging study suggested a new perihilar mass. CT scan chest from October 15 is as follows IMPRESSION: 1. Consolidative mass medial aspect right base with an additional focus of consolidative density immediately anterior to the right hilum. 2. Dimensions are as discussed above. 3. Diagnostic considerations include consolidative infiltrate versus potential neoplastic change. 4. Note is also made of a interstitial infiltrate superior aspect right lower lobe. Allergies Allergy/AdvReac Type Severity Reaction Status Date / Time No Known Allergies Allergy Unverified 10/09/19 09:12 Home Medications Home Medications Medication Instructions Recorded Confirmed Type allopurinol 300 mg tablet 300 mg PO QAM 07/01/19 10/09/19 History metoprolol succinate 200 mg PO QAM 09/24/19 10/09/19 History sacubitril 24 mg-valsartan 26 mg 1 tab PO BID #60 tab 10/09/19 10/09/19 Rx tablet Past Med/Surg History Medical History (Updated 11/01/19 @ 15:25 by Ramses Salcedo MD) Chest pain Cath 2016 low normal systolic function Chronic systolic heart failure TTE EF 35 to 40% Neutropenia Non-Hodgkin's lymphoma Pancytopenia Splenomegaly Symptomatic anemia Tachycardia Surgical History H/O hernia repair History of Achilles tendon repair History of cardiac cath S/P scar revision Family History Other No pertinent family history Social History Smoking Status: Never smoker Do You Dip or Chew Tobacco: Yes; Hx Alcohol Use: No Hx Substance Use: No Preferred Language: Cuban Communication Ability: Effective Service Department Manager Required: No Beliefs That Will Affect Care: None Current Living Situation: Spouse Other Information That Helps Us Care for You: No Feels Safe at Home: Yes Safety Concerns: Feels Safe At This Time Review of Systems Review of Systems: Mild distress and fatigue no headache, blurry or double vision no speech or swallowing issues no chest pain, pressure or palpitations no shortness of breath, patient has persistent cough occasionally with clear sputum Left lower quadrant intermittent groin abdominal pain which is worse with coughing always with a slight bulge with self reduces, nausea or vomiting, diarrhea or constipation no dysuria, hematuria or frequency no focal joint pain or swelling no back pain, CVA tenderness or radicular pain no bruising, bleeding or rashes no focal signs of weakness or numbness or altered sensation no complaints or anxiety or depression. Physical Exam Physical Exam: The patient appeared well nourished and normally developed. Vital signs as documented. Head exam is normocephalic atraumatic no scleral icterus Neck is without JVD, thyromegaly, or carotid bruits. Lungs are clear to auscultation, minutes at the bases no wheezes Cardiac exam, Rhythm is regular.. No murmurs, rubs or gallops. Abdominal exam reveals normal bowel sounds, soft no defined hernia but there definitely is a protrusion or weak spot which is worse with Valsalva. This is tender to palpation but is not appear to be strangulated or incarcerated Extremities are nonedematous and both pedal pulses are normal. Neurologic exam is alert and oriented, no focal loss of strength or sensation Skin is without bruises or rashes Psychologically is without concerns for anxiety or depression. PG Care Time/CCT Total # of Minutes Spent Total Time Spent with Patient: Total time spent is greater than 50% in coordination of care (as documented) at patient's floor/unit and/or counseling patient: Coding Level of Care Code 65291 Initial Inpt Care Lvl [address] R93.89 Waldenstrom macroglobulinemia C88.0 Nonischemic cardiomyopathy I42.8 Left inguinal hernia K40.90 DVT prophylaxis Z29.9
[2019-11-01 15:14] LABS: Basophils # (auto) 0.02 K/uL (0-0.2); Basophils % (auto) 0.4 %; Eosinophils # (auto) 0.05 K/uL (0-0.5); Eosinophils % (auto) 1.1 %; Hematocrit (blood only) 40.1 % (42-52); Hemoglobin 14.2 g/dL (14.0-18.0); Lymphocytes # (auto) 0.63 K/uL (1.2-3.4); Lymphocytes % (auto) 13.8 %; Mean Corpuscular Hemoglobin 31.7 pg (25-34); Mean Corpuscular Hgb Conc 35.4 g/dL (32-36); Mean Corpuscular Volume 89.5 fL (80-100); Monocytes # (auto) 0.71 K/uL (0.11-0.59); Monocytes % (auto) 15.5 %; Neutrophils # (auto) 3.16 K/uL (1.4-6.5); Neutrophils % (auto) 69.2 %; Platelet Count 131 K/uL (130-400); RDW Coefficient of Variation 13.4 % (11.5-14.5); RDW Standard Deviation 44.1 fL (36.4-46.3); Red Blood Count 4.48 M/uL (4.7-6.1); White Blood Count 4.57 K/uL (4.8-10.8)
[2019-11-01 15:23] LABS: Partial Thromboplastin Time 28.5 Seconds (21.0-31.0); Prothrombin Time 10.7 Seconds (9.0-12.0)
[2019-11-01 15:46] LABS: Albumin Level 3.8 gm/dl (3.4-5.0); BUN Creatinine Ratio 16.8 (10-20); Calcium 9.3 mg/dl (8.5-10.1); Creatinine Clr Calc Pharmacy 110.3 ml/min; Est GFR (African American) 115.6; Est GFR (Non-African American) 99.7; Potassium 3.6 mmol/L (3.5-5.1)
[2019-11-01 15:49] LABS: Albumin Globulin Ratio 1.3 (0.9-2); Bilirubin,Total 0.8 mg/dl (0.2-1); Total Protein 6.8 gm/dl (6.4-8.2)
[2019-11-01] MEDS: CARBAMIDE PEROXIDE 6.5% 15 ML BTL OT SCH (20:54)
[2019-11-01] MEDS: GUAIFENESIN/CODEINE 200MG/20MG 10ML UDC PO PRN (20:54)
[2019-11-01] MEDS: SACUBITRIL-VALSARTAN 24-26 MG TAB PO SCH (20:55)
[2019-11-01] MEDS: HEPARIN SOD 5,000 UNIT/0.5 ML VIAL SQ SCH (20:59)
[2019-11-02] MEDS: HEPARIN 100 UNIT/ML 5ML FLUSH FLUSH PRN (05:34)
[2019-11-02 06:45] LABS: BUN Creatinine Ratio 19.5 (10-20); Calcium 8.9 mg/dl (8.5-10.1); Creatinine Clr Calc Pharmacy 133.6 ml/min; Est GFR (Non-African American) 107.9; Potassium 3.5 mmol/L (3.5-5.1)
[2019-11-02] MEDS: CARBAMIDE PEROXIDE 6.5% 15 ML BTL OT SCH ×2 (10:26→20:49)
[2019-11-02] MEDS: allopurinoL 300 MG TAB PO SCH (10:26)
[2019-11-02] MEDS: SACUBITRIL-VALSARTAN 24-26 MG TAB PO SCH ×2 (10:27→20:53)
[2019-11-02] MEDS: METOPROLOL SUCC 50MG EXT REL TAB PO SCH (10:30)
[2019-11-02] MEDS: HEPARIN SOD 5,000 UNIT/0.5 ML VIAL SQ SCH ×2 (10:52→20:49)
[2019-11-02] MEDS ORDERED: ALBUT/IPRATROP 3MG/0.5MG NEB 3 ML VIAL NEB PRN (16:00)
--- NOTE | 2019-11-02 16:18 | Pulmonary Consultation ---
Date of Consultation November 02, 2019 Assessment & Plan (1) Abnormal chest CT: 54-year-old male with a past medical history of Herrera Iggy's macroglobulinemia status post 6 cycles of bendamustine and rituximab, nonischemic cardiomyopathy and left bundle branch block presenting to the hospital with persistent cough and abnormal CT chest on 10/16/2019. Going to obtain a portable chest x-ray today. His procalcitonin level was less than 0.05. I am ordering for a serum beta glucan, urine histo antigen and coccidiomycosis antibodies. He is certainly at risk for fungal infections given his occupation and his immunocompromise state as he recently received chemotherapy. He is also at risk for pulmonary toxicity related to the chemotherapy itself. Less likely that this is a complication of his underlying malignancy. Other etiologies include bacterial infections, atypical infections and organizing pneumonia. I am going to order COVID-19 test as we are planning to do a bronchoscopy tomorrow. Hopefully, we will be able to gain some insight into his underlying pulmonary issues. I ordered for duo nebs to see if that would help with his cough overnight. Please maintain him n.p.o. over midnight, hold all DVT prophylaxis tomorrow morning, check CBC for tomorrow. I allowed him to eat for dinner. (2) Waldenstrom macroglobulinemia: (3) Chronic systolic heart failure: (4) Persistent dry cough: History of Present Illness Reason for Consultation: Persistent coughing with right lower lobe infiltrates. Requesting Physician: Hospitalist service Attending Physician: Jacky Peralta DO History of Present Illness 54-year-old male with a past medical history of Waldenstrm macroglobulinemia recently completed 6 cycles of bendamustine and rituximab on 09/17/2019, nonischemic cardiomyopathy and a history of Lyme disease who presented to the hospital as a direct admission per the patient's oncologist. Patient has had a persistent dry cough for the last several months. He denies any hemoptysis. He notes lately it has become worse to the point where he is having dry heaves. He denies any significant shortness of breath or fevers. No recent COVID-19 contacts. His weight has been going up as of late. Prior to his diagnosis of [place] Iggy's he was losing a substantial amount of weight and was very fatigued. 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 He has 2 cats at home. They do a substantial amount of wood-burning outside. No hot tub at home. No significant bird exposure. He denies any recent flooding in his house. He does chew tobacco, but he denies any smoking of tobacco. He denies any cigarettes or vaping. He was empirically on 50 mg of p.o. prednisone, but this appears to have stopped several months ago. Procalcitonin level was within normal limits. CT chest on 10/16/2019 demonstrated consolidative mass medial aspect of the right base with additional focus of consolidative density immediately anterior to the right hilum. Allergies Allergy/AdvReac Type Severity Reaction Status Date / Time No Known Allergies Allergy Unverified 10/09/19 09:12 Home Medications Home Medications Medication Instructions Recorded Confirmed Type allopurinol 300 mg tablet 300 mg PO QAM 07/01/19 10/09/19 History metoprolol succinate 200 mg PO QAM 09/24/19 10/09/19 History sacubitril 24 mg-valsartan 26 mg 1 tab PO BID #60 tab 10/09/19 10/09/19 Rx tablet Patient History Medical History (Updated 11/02/19 @ 16:12 by Gustavo Nicolas MD) Chest pain Cath 2016 low normal systolic function Chronic systolic heart failure TTE EF 35 to 40% Neutropenia Non-Hodgkin's lymphoma Pancytopenia Persistent dry cough Splenomegaly Symptomatic anemia Tachycardia Surgical History H/O hernia repair History of Achilles tendon repair History of cardiac cath S/P scar revision Family History Other No pertinent family history Social History Smoking Status: Never smoker Do You Dip or Chew Tobacco: Yes; Hx Alcohol Use: No Hx Substance Use: No Preferred Language: Citizen Of [place] Communication Ability: Effective 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: No Beliefs That Will Affect Care: None Current Living Situation: Spouse Other Information That Helps Us Care for You: No Feels Safe at Home: Yes Safety Concerns: Feels Safe At This Time Review of Systems Review of Systems: All systems reviewed & are unremarkable except as noted in HPI & below Physical Exam Constitutional: WD/WN, vitals as above Eyes: PERRL, conjunctivae normal, anicteric sclerae ENMT: external ear and nose normal, oropharynx normal Neck: normal visual inspection Respiratory: normal respiratory effort and + cough; not tachypneic Cardiovascular: RRR, no murmur, no edema Gastrointestinal (Abdomen): normal bowel sounds, soft, nontender, no hepatosplenomegaly Musculoskeletal: no cyanosis or clubbing, extremities motor strength 5/5 Skin: no rashes, warm and dry Neurologic: PERRL, EOMI, accommodation nl, no face palsy, no dysarthria Psychiatric: A+Ox3, euthymic affect Results & Data Results & Data ([facility]) Vital Signs (Past 12 Hours) Vital Signs Temp Pulse Resp BP Pulse Ox 11/02/19 10:29 76 113/69 11/02/19 07:52 98.2 F 77 16 127/74 98 I personally reviewed vital signs, labs and chest imaging PG Care Time/CCT Total # of Minutes Spent Total Time Spent with Patient: Total time spent is greater than 50% in coordination of care (as documented) at patient's floor/unit and/or counseling patient: Coding Level of Care Code 71615 Inpt Consult Level [address] R93.89 Waldenstrom macroglobulinemia C88.0 Chronic systolic heart failure I50.22 Persistent dry cough R05
--- NOTE | 2019-11-02 16:46 | XRay Report ---
XR chest 1V portable CLINICAL HISTORY: cough COMPARISON STUDY: 09/24/2019 FINDINGS: There is a left-sided A-Port catheter present. The cardiac and mediastinal contours remain stable. There is no failure. There is no focal pulmonary consolidation. There are no pleural effusion s.[ IMPRESSION: No active disease in the chest. ACT 112: Negative or not required by law. Electronically signed by: Iftikhar Strauss M.D. 11/02/2019 4:45 PM
--- NOTE | 2019-11-02 17:54 | Hospitalist Progress Note ---
Date of Service November 02, 2019 Assessment & Plan (1) Abnormal chest CT: #Abnormal chest CT: On October [address] which identified a perihilar mass on the right side approximately 2 cm that appeared to be new. Patient undergoing treatment for Waldenstrm's macroglobulinemia since April 2019. He follows with Dr. Samuel. 6 weeks the patient has endorsed a nagging cough that just will not go away, there is been no constitutional symptoms associated with this, no infections symptoms, no other symptomatology except for frequent chronic cough that at times will cause him to strain her left groin causing pain similar to her prior hernia. Patient does have a history of exposure to smoke, sawdust, potential fungal pathogens, and chemotherapy. Given the pts complex exposure and cancer hx the patient was directly admitted to the hospital for pulmonary consultation and possible bronchoscopy. Patient was evaluated by pulmonary medicine today he was requested the patient be made n.p.o. after midnight for scheduled bronchoscopy tomorrow -N.p.o. after midnight for bronchoscopy #Anxiety: Patient reports anxiety about his upcoming procedure, and has been unable to sleep in the last 2 nights, requesting medication to assist with his anxiety. -1 mg lorazepam IVP at bedtime #Waldenstrom macroglobulinemia: Follows with Dr. Samuel currently on Rituximab and bendamustine. Has been treated since April 2019 #Nonischemic cardiomyopathy: Ejection fraction is 30 to 35% with a chronic left bundle branch block, follows with the heart failure clinic, continue home meds. -Metoprolol succinate 200 mg every morning -Entresto twice daily #Left inguinal hernia: Per Admitting physician, "patient definitely has some mild change with Valsalva does not appear to be significant or emergent. Certainly to first explore his pulmonary issues may be warranted given the fact that if he were to require surgical repair anesthesia would want his pulmonary dynamics to be optimized" -To consider outpatient general surgery referral #DVT prophylaxis: Patient certainly at risk of blood clots or seizure will continue to hold anticoagulation andresume status post procedure -Resume anticoagulation FENa: Regular Code Status: Full DVT PPX: SCDs PT/OT: Not indicated Dispo: med/surg Tucker Pablo MD PGY 2, FCM This chart was completed utilizing Re[employer] voice recognition software. Grammatical errors, random word insertions, pronoun errors, and in complete sentences are an occasional consequence of the system. Any questions or concerns about the content, text, or information contained within the body of this dictation should be addressed directly to the physician for clarification. (2) Persistent dry cough: (3) Waldenstrom macroglobulinemia: (4) Left inguinal hernia: Admission and Anticipated Discharge Date Admission Date: November 01, 2019 Supervising Physician Co-Signing Physician Notes I personally examined the patient and verified all jennings points of history and exam, discussed case, and agree with decision making with Dr Pablo. cough. awaiting pulmonary input when i saw him - later plan is for bronch tomorrow. vitals noted nad heent nc at mmm breathing unlabored no accessory muscles but has frequent coughing fits when talking lung mass/lesion - seems to be provoking cough - or at least is quite plausible that it's what is provoking cough. for bronch tomorrow. otherwise as above Subjective Patient sitting up in bed in no acute distress reports feeling well. Patient is voiding, stooling, tolerating his diet, has not been sleeping as well due to anxiety about the test. Patient reports he feels well with the exception of his frequent coughing bouts. He said he would just like his coughingresolved. Patient denies any recent weight loss, constitutional symptoms, abnormal fevers, tachycardia, tachypnea, or any other abnormal symptoms. Patient requesting sent to the [facility] this evening given anxiety regarding the procedure. Review of Systems Review of Systems: All systems reviewed & are unremarkable except as noted in HPI & below Physical Exam Physical Exam: General: No acute distress HEENT: Normocephalic atraumatic Neck: Normal visual inspection, trachea midline Cardiac: See attending attestation Respiratory: See attending attestation, frequent coughing bouts GI: Soft, nontender, nondistended MSK: Moves all extremities Skin: Cool dry and intact Neuro: Alert and oriented x4 Psych: Calm and cooperative Results & Data Results & Data ([facility]) Vital Signs (Past 12 Hours) Vital Signs Temp Pulse Resp BP Pulse Ox 11/02/19 16:03 36.8 C 67 18 134/77 95 11/02/19 10:29 76 113/69 11/02/19 07:52 36.8 C 77 16 127/74 98 Laboratory Results 11/02/19 11/02/19 11/02/19 Range/Units 17:19 16:45 16:45 Sodium (136-145) mmol/L Potassium (3.5-5.1) mmol/L Chloride (98-107) mmol/L Carbon Dioxide (21-32) mmol/L Anion Gap (3-11) BUN (7-18) mg/dl Creatinine (0.6-1.4) mg/dl Est Cr Clr Drug Dosing ml/min Est GFR ( Amer) Est GFR (Non-Af Amer) BUN/Creatinine Ratio (10-20) Glucose (70-99) mg/dl Calcium (8.5-10.1) mg/dl Procalcitonin (0-0.5) ng/ml Coccidioides Ab (ID) Pending COVID-19 Eval Order Covid19 [facility]Now [facility] SARS-CoV-2, RNA, NAAT Pending Beta-(1,3)-D-Glucan Pending B-(1,3)-D-Glucan Intrp Pending 11/02/19 11/02/19 Range/Units 12:58 05:34 Sodium 140 (136-145) mmol/L Potassium 3.5 (3.5-5.1) mmol/L Chloride 106 (98-107) mmol/L Carbon Dioxide 27 (21-32) mmol/L Anion Gap 7.0 (3-11) BUN 14 (7-18) mg/dl Creatinine 0.71 (0.6-1.4) mg/dl Est Cr Clr Drug Dosing 133.6 ml/min Est GFR ( Amer) 125.0 Est GFR (Non-Af Amer) 107.9 BUN/Creatinine Ratio 19.5 (10-20) Glucose 106 H (70-99) mg/dl Calcium 8.9 (8.5-10.1) mg/dl Procalcitonin < 0.05 (0-0.5) ng/ml Coccidioides Ab (ID) COVID-19 Eval Order SARS-CoV-2, RNA, NAAT Beta-(1,3)-D-Glucan B-(1,3)-D-Glucan Intrp Medications Administered Current Inpatient Medications Acetaminophen (Acetaminophen 325 Mg Tab) 650 mg PO Q4H PRN PRN Reason: pain/fever Stop: 12/01/19 13:15 Al Hydrox/Mg Hydrox/Simethicone (Aluminum/Magnesium Susp 30 Ml Udc) 30 ml PO Q6H PRN PRN Reason: Dyspepsia Stop: 12/01/19 13:15 Albuterol (Albut/Ipratrop 3mg/0.5mg Neb 3 Ml Vial) 3 ml NEB QIDR PRN PRN Reason: coughing Stop: 12/02/19 15:59 Allopurinol ([facility]op[facility]ol 300 Mg Tab) [facility]: 12/02/19 08:59 Last Admin: 11/02/19 10:26 Dose: 300 mg Documented by: Carbamide Peroxide (Carbamide Peroxide 6.5% 15 Ml Btl) 4 drops OT BID RADHA Stop: 11/05/19 20:59 Last Admin: 11/02/19 10:26 Dose: 4 drops Documented by: Guaifenesin/Codeine Phosphate (Guaifenesin/Codeine 200mg/20mg 10ml Udc) 10 ml PO Q6H PRN PRN Reason: Cough Stop: 12/01/19 15:15 Last Admin: 11/01/19 20:54 Dose: 10 ml Documented by: Heparin Sodium (Porcine) (Heparin Sod 5,000 Unit/0.5 Ml Vial) 5,000 units SQ Q12 [facility] Stop: 12/01/19 20:59 Last Admin: 11/02/19 10:52 Dose: Not Given Documented by: Heparin Sodium (Porcine) (Heparin 100 Unit/Ml 5ml Flush) 5 ml FLUSH PRN PRN PRN Reason: Flush Stop: 12/01/19 15:06 Last Admin: 11/02/19 05:34 Dose: 5 ml Documented by: Metoprolol Succinate (Metoprolol Succ 50mg Ext Rel Tab) [facility] Stop: 12/02/19 08:59 Last Admin: 11/02/19 10:30 Dose: 200 mg Documented by: Ondansetron HCl (Ondansetron Inj 2 Mg/Ml 2 Ml Vial) 4 mg IV Q6H PRN PRN Reason: Nausea Stop: 12/01/19 13:15 Sacubitril/Valsartan (Sacubitril-Valsartan 24-26 Mg Tab) 1 tab PO BID [facility] Stop: 12/01/19 20:59 Last Admin: 11/02/19 10:27 Dose: Not Given Documented by: Resident Activity Tracking Resident Involvement: Resident Care Provided Care Provided: Adult Hospital Medicine
[2019-11-02] MEDS ORDERED: LORazepam 1 MG/2 ML VIAL IV STA (18:17)
[2019-11-02] MEDS ORDERED: LORazepam 0.5 MG/1 ML VIAL IV PRN (18:30)
--- NOTE | 2019-11-02 19:58 | Billing Data ---
Date of Service November 02, 2019 Coding Level of Care Code 75456 Subseq Hosp Care Lvl 3
[2019-11-02] MEDS ORDERED: MELATONIN 3 MG TAB PO PRN (21:21)
[2019-11-02] MEDS: GUAIFENESIN/CODEINE 200MG/20MG 10ML UDC PO PRN (23:28)
[2019-11-03] MEDS: HEPARIN 100 UNIT/ML 5ML FLUSH FLUSH PRN (05:22)
[2019-11-03 06:23] LABS: Hematocrit (blood only) 41.1 % (42-52); Hemoglobin 14.4 g/dL (14.0-18.0); Mean Corpuscular Hemoglobin 32.1 pg (25-34); Mean Corpuscular Volume 91.5 fL (80-100); Mean Platelet Volume 10.6 fL (7.4-10.4); Platelet Count 117 K/uL (130-400); RDW Coefficient of Variation 13.5 % (11.5-14.5); RDW Standard Deviation 45.2 fL (36.4-46.3); Red Blood Count 4.49 M/uL (4.7-6.1); White Blood Count 3.59 K/uL (4.8-10.8)
[2019-11-03 06:52] LABS: BUN Creatinine Ratio 14.5 (10-20); Calcium 9.1 mg/dl (8.5-10.1); Creatinine Clr Calc Pharmacy 128.2 ml/min; Est GFR (African American) 122.9; Est GFR (Non-African American) 106.1; Potassium 3.7 mmol/L (3.5-5.1)
--- NOTE | 2019-11-03 08:05 | History & Physical Bridge Note ---
Date of Service November 03, 2019 History & Physical Bridge Note I have examined the patient, reviewed the History & Physical and in the interval since the performance of the History & Physical I have noted the following changes of clinical significance: no changes noted
--- NOTE | 2019-11-03 08:05 | Pre Anesthesia Assessment ---
Date of Service November 03, 2019 Pre Sedation Assessment Vital Signs Temp Pulse Resp BP Pulse Ox 11/03/19 07:48 98.2 F 82 16 114/70 97 11/02/19 23:01 98.6 F 73 16 110/66 92 11/02/19 16:03 98.2 F 67 18 134/77 95 11/02/19 10:29 76 113/69 Pre-Sedation Airway Assessment Smoking Status: Never smoker Notes The planned sedation has been discussed with the patient. Informed Consent was obtained. I have identified the patient, determined the appropriateness of sedation and have assessed the patient immediately prior to the procedure. All medicine(s) and interventions are by my order.
--- NOTE | 2019-11-03 08:24 | Pre Anesthesia Assessment ---
Date of Service November 03, 2019 Pre Sedation Assessment Vital Signs Temp Pulse Pulse Resp BP Pulse Ox 11/03/19 08:18 76 18 101/76 96 11/03/19 07:48 98.2 F 82 16 114/70 97 11/02/19 23:01 98.6 F 73 16 110/66 92 11/02/19 16:03 98.2 F 67 18 134/77 95 11/02/19 10:29 76 113/69 Pre-Sedation Airway Assessment Smoking Status: Never smoker Hx Sleep Apnea: No Short, Thick Neck: No Thyromental Distance: > or= 3.5 Finger Breadths Oral Cavity: + WNL Mallampati Class: II ASA: ASA2 NPO Status Date of Last Intake of Fluids: 11/03/19 Time of Last Intake of Fluids: 00:00 Last Oral Intake of Fluids Comment: no medication this am Date of Last Intake of Solid Food: 11/03/19 Time of Last Intake of Solid Foods: 00:00 Notes The planned sedation has been discussed with the patient. Informed Consent was obtained. I have identified the patient, determined the appropriateness of sedation and have assessed the patient immediately prior to the procedure. All medicine(s) and interventions are by my order.
--- NOTE | 2019-11-03 09:09 | Pulmonology Progress Note ---
Date of Service November 03, 2019 Assessment & Plan (1) Abnormal chest CT: 54-year-old male with a past medical history of Waldenstrm's macroglobulinemia status post 6 cycles of bendamustine and rituximab, nonischemic cardiomyopathy and left bundle branch block presenting to the [facility] with persistent cough and abnormal CT chest on 10/16/2019. Patient is status post bronchoscopy today. We obtained BAL samples, transbronchial biopsies and brushings of the right lower lobe. If the BAL cell count demonstrates significant eosinophilia, I may consider starting him on oral prednisone. These were sent for cultures, cytology and pathology. I also sent for serum fungal studies yesterday. These will take some time to result. I recommend discharging him on 7 days of antibiotics such as Levaquin. He can likely go home today. I will follow-up with him in the pulmonary clinic in approximately 1 week. Etiology of the opacities include possible atypical infection versus less likely malignancy versus pulmonary toxicity from chemotherapy versus organizing pneumonia. (2) Waldenstrom macroglobulinemia: (3) Chronic systolic heart failure: (4) Persistent dry cough: Admission and Anticipated Discharge Date Admission Date: November 01, 2019 Subjective Patient coughing throughout the night. No significant fevers. No chills. No night sweats. Review of Systems Review of Systems: All systems reviewed & are unremarkable except as noted in HPI & below Physical Exam Constitutional: WD/WN, vitals as above Eyes: PERRL, conjunctivae normal, anicteric sclerae ENMT: external ear and nose normal, oropharynx normal Neck: normal visual inspection Respiratory: normal respiratory effort and + cough; not tachypneic Cardiovascular: RRR, no murmur, no edema Gastrointestinal (Abdomen): normal bowel sounds, soft, nontender, no hepatosplenomegaly Musculoskeletal: no cyanosis or clubbing, extremities motor strength 5/5 Skin: no rashes, warm and dry Neurologic: PERRL, EOMI, accommodation nl, no face palsy, no dysarthria Psychiatric: A+Ox3, euthymic affect Results & Data Results & Data ([facility]) Vital Signs (Past 12 Hours) Vital Signs Temp Pulse Pulse Resp BP Pulse Ox 11/03/19 09:05 74 18 125/67 99 11/03/19 09:00 84 18 103/59 L 98 11/03/19 08:55 77 18 101/67 92 09/01/20 08:50 79 18 109/64 96 11/03/19 08:45 74 14 111/64 95 11/03/19 08:40 77 14 102/70 97 11/03/19 08:35 73 16 113/66 95 11/03/19 08:30 81 20 117/79 99 11/03/19 08:25 75 18 122/75 99 11/03/19 08:18 76 18 101/76 96 11/03/19 07:48 98.2 F 82 16 114/70 97 11/02/19 23:01 98.6 F 73 16 110/66 92 I personally reviewed vital signs labs and imaging PG Care Time/CCT Total # of Minutes Spent Total Time Spent with Patient: Total time spent is greater than 50% in coordination of care (as documented) at patient's floor/unit and/or counseling patient: Coding Level of Care Code 11728 Subseq Hosp Care Lvl [address] R93.89 Waldenstrom macroglobulinemia C88.0 Chronic systolic heart failure I50.22 Persistent dry cough R05
[2019-11-03] MEDS ORDERED: LIDOCAINE HCL 2% (LOCAL) INJ 50 ML VIAL INSTIL ONE (09:15)
[2019-11-03] MEDS ORDERED: LIDOCAINE HCL VISCOUS SOLN 2% 15 ML UDC TOP ONE (09:15)
[2019-11-03] MEDS ORDERED: OXYMETAZOLINE 0.05% 30 ML BTL ONE (09:15)
[2019-11-03] MEDS ORDERED: MIDAZOLAM HCL 1 MG/ML 2ML VIAL IV STA (09:15)
[2019-11-03] MEDS ORDERED: fentaNYL citrate 100 MCG/2 ML VIAL IV ONE (09:15)
[2019-11-03] MEDS ORDERED: LIDOCAINE 4% INH SOLN 4 ML BTL NEB ONE (09:15)
--- NOTE | 2019-11-03 09:16 | Procedure Note ---
Procedure Note: Bronchoscopy Procedure Procedural sedation started at 8:30 AM and ended at 9:07 AM. 7 mg of Versed and 175 mcg of fentanyl were utilized throughout the procedure. PREOPERATIVE DIAGNOSIS: Right lower lobe nodular opacity POSTOPERATIVE DIAGNOSIS: Right lower lobe nodular opacity PROCEDURE PERFORMED: Flexible fiberoptic bronchoscopy with Bronchial alveolar lavage, transbronchial biopsies and brushings of the right lower lobe superior segment COMPLICATIONS: None. INDICATION: Evaluate for infectious and malignant etiologies PROCEDURE: After obtaining an informed consent, the patient was brought to the Bronchoscopy Suite. The patient had appropriate oxygen, blood pressure, heart rate, and respiratory rate monitoring applied and monitored continuously throughout the procedure. Supplemental oxygen via nasal cannula as per nursing records was applied to the nasopharynx with adequate saturations achieved. Topical anesthesia with nebulized 1% lidocaine was achieved. Subsequent to this, the patient was premedicated with 7 mg of midazolam and 175 mcg of fentanyl. The oropharynx and larynx were well visualized and showed no significant findings aside for mild erythema in the posterior oropharynx. There was normal vocal cord motion without masses or lesions. Additional topical anesthesia with 1% lidocaine was applied to the trachea and kelsy. The trachea appeared normal.The bronchoscope was then advanced through the kelsy, which was sharp. The scope was then advanced into the right main stem and each segment, subsegement in the right upper lobe, right middle lobe and right lower lobe was visualized. There was scant amounts of frothy secretions noted. There were no other findings including Evidence of mass, anatomic distortion or hemorrhage.. The bronchoscope was subsequently withdrawn and advanced into the left mainstem. Again, each segment and subsegment was well visualized. No specific masses or other lesions were identified throughout the tracheobronchial tree on the left. There was Minimal amounts of thin secretions noted. The bronchoscope was then wedged in the superior segment of the right lower lobe and bronchoalveolar lavage samples were obtained. 180 ml of saline was instilled and 35 ml of fluid was aspirated back. The bronchoscope was withdrawn and the area was suctioned clear. We then performed brushings including microscopy brushings and cytology brushings of the right lower lobe superior segment. Minimal bleeding was seen. The bronchoscope was then re-advanced into the superior segment of the right lower lobe and 4 transbronchial biopsies were taken. Fluoroscopy was not utilized. Minimal hemorrhage was identified and suctioned clear without difficulty. The bronchoscope was then withdrawn to the mainstem. The area was suctioned clear. The bronchoscope was then withdrawn. The patient tolerated the procedure well without evidence of desaturation or complications. Bronchoalveolar lavage samples were sent for cell count, Gram stain and bacterial culture, AFB culture and smear, fungal culture and smear, Aspergillus galactomannan and cytology. Brushings were sent for cultures and cytology. Transbronchial biopsies were sent for tissue culture (bacteria, AFB and fungal) and pathology. Recommendations: Follow samples. We will see him back in the pulmonary clinic. Recommend discharging on 7 days of antibiotics.
--- NOTE | 2019-11-03 09:35 | XRay Report ---
XR chest 1V portable CLINICAL HISTORY: Status post right lower lobe transbronchial biopsy washings and brushing. COMPARISON STUDY: 11/02/2019 FINDINGS: The cardiac and mediastinal contours remain stable. There is a left-sided A-Port catheter. There is mild right perihilar airspace opacity. There is no pneumothorax. No pleural effusions are vi sualized.[ IMPRESSION: 1. Right perihilar airspace opacities 2. No evidence of pneumothorax status post bronchoscopy ACT 112: Negative or not required by law. Electronically signed by: Iftikhar Strauss M.D. 11/03/2019 9:34 AM
[2019-11-03] MEDS: SACUBITRIL-VALSARTAN 24-26 MG TAB PO SCH (09:53)
[2019-11-03] MEDS: CARBAMIDE PEROXIDE 6.5% 15 ML BTL OT SCH (09:54)
--- NOTE | 2019-11-03 10:14 | Discharge Summary ---
Date of Service November 03, 2019 Admission HPI Per Admitting Provider 54-year-old male with a history of Worthington Iggy's macroglobulinemia recently treated with chemotherapy by Dr. Romario Paulino of rituximab and bendamustine, was recommended for admission with persistent cough x6 weeks. The cough prompted worsening of a right inguinal hernia. In recent imaging study suggested a new perihilar mass. CT scan chest from October 15 is as follows IMPRESSION: 1. Consolidative mass medial aspect right base with an additional focus of consolidative density immediately anterior to the right hilum. 2. Dimensions are as discussed above. 3. Diagnostic considerations include consolidative infiltrate versus potential neoplastic change. 4. Note is also made of a interstitial infiltrate superior aspect right lower lobe. Admission Exam Per Admitting Provider The patient appeared well nourished and normally developed. Vital signs as documented. Head exam is normocephalic atraumatic no scleral icterus Neck is without JVD, thyromegaly, or carotid bruits. Lungs are clear to auscultation, minutes at the bases no wheezes Cardiac exam, Rhythm is regular.. No murmurs, rubs or gallops. Abdominal exam reveals normal bowel sounds, soft no defined hernia but there definitely is a protrusion or weak spot which is worse with Valsalva. This is tender to palpation but is not appear to be strangulated or incarcerated Extremities are nonedematous and both pedal pulses are normal. Neurologic exam is alert and oriented, no focal loss of strength or sensation Skin is without bruises or rashes Psychologically is without concerns for anxiety or depression. Principal Diagnosis Diagnostic Bronchscopy to Characterize a New Right Lower Lobe Nodular opacity in the setting of chronic cough complicated by a history of Waldenstrom Macroglobulinemia Discharge Exam General: recovering from procedure HEENT: Normocephalic atraumatic Neck: Normal visual inspection, trachea midline Cardiac: See attending attestation Respiratory: See attending attestation, frequent coughing bouts GI: Soft, nontender, nondistended MSK: Moves all extremities Skin: Cool dry and intact Neuro: Alert and oriented x4 Psych: Calm and cooperative Discharge Data Allergies Allergy/AdvReac Type Severity Reaction Status Date / Time No Known Allergies Allergy Unverified 10/09/19 09:12 Consultations 11/01/19 13:18 Consult Case Management - Discharge Planning Routine Consult Hematology Routine 11/01/19 15:16 Consult Pulmonology Routine Procedures Performed Operation Date: 11/03/19 08:30 Actual Procedures p Bronchoscopy (Bilateral) - Gustavo Nicolas MD Hospital Course (1) Abnormal chest CT: #Abnormal chest CT: On October [address] which identified a perihilar mass on the right side approximately 2 cm that appeared to be new. Patient undergoing treatment for Waldenstrm's macroglobulinemia since April 2019. He follows with Dr. Samuel. 6 weeks the patient has endorsed a nagging cough that just will not go away, there is been no constitutional symptoms associated with this, no infections symptoms, no other symptomatology except for frequent chronic cough that at times will cause him to strain her left groin causing pain similar to her prior hernia. Patient does have a history of exposure to smoke, sawdust, potential fungal pathogens, and chemotherapy. Given the pts complex exposure and cancer hx the patient was directly admitted to the hospital for pulmonary consultation and possible bronchoscopy. Patient was evaluated by pulmonary medicine today he was requested the patient be made n.p.o. after midnight for scheduled bronchoscopy 11/02. Patient tolerated the procedure well, samples were obtained. Pulmonology recommended discharging the patient on 1 week of Levaquin. After a few hours, the patient tolerating room air, the patient in no respiratory distress, he was discharged on levaquin -levaquin 750 mg daily for 7 days #Waldenstrom macroglobulinemia: Follows with Dr. Samuel currently on Rituximab and bendamustine. Has been treated since April 2019 -resume care upon d/c -follow up with Dr. Samuel regarding need for anti-coaguation, will defer to his expertice #Nonischemic cardiomyopathy: Ejection fraction is 30 to 35% with a chronic left bundle branch block, follows with the heart failure clinic, continued home meds. -Metoprolol succinate 200 mg every morning -Entresto twice daily #Left inguinal hernia: Per Admitting physician, "patient definitely has some mild change with Valsalva does not appear to be significant or emergent. Certainly to first explore his pulmonary issues may be warranted given the fact that if he were to require surgical repair anesthesia would want his pulmonary dynamics to be optimized" -To consider outpatient general surgery referral #DVT prophylaxis: Patient certainly at risk of blood clots or seizure will continue to hold anticoagulation andresume status post procedure -Resume anticoagulation FENa: Regular Code Status: Full DVT PPX: SCDs PT/OT: Not indicated Dispo: med/surg Tucker Pablo MD PGY 2, FCM This chart was completed utilizing [employer] voice recognition software. Grammatical errors, random word insertions, pronoun errors, and in complete sentences are an occasional consequence of the system. Any questions or concerns about the content, text, or information contained within the body of this dictation should be addressed directly to the physician for clarification. (2) Persistent dry cough: (3) Waldenstrom macroglobulinemia: (4) Left inguinal hernia: Total Time Total Time Spent Total Time Spent (In Minutes): <30 Discharge Plan Discharge Items Patient Disposition: Home - Self-Care Reason For Visit: PERIHILAR MASS Discharge Diagnosis: Diagnostic Bronchscopy to Characterize a New Right Lower Lobe Nodular opacity in the setting of chronic cough complicated by a history of Waldenstrom Macroglobulinemia Activity: Resume your previous activity Non-emergency contact: Primary Care Provider Call non-emergency contact if: you have any medication questions, your symptoms worsen, your pain is not controlled, your pain is worsening, your pain is unusual for you and your temperature is above 101.5 Follow-up/Referrals: Teo Ernst, [Primary Care Provider] - Diet: Regular Addtl Attending Provider Instructions: Care instructions: You were admitted to [facility] for treatment of Diagnostic Bronchscopy to Characterize a New Right Lower Lobe Nodular opacity in the setting of chronic cough complicated by a history of Waldenstrom Macroglobulinemia. Please follow up with pulmonology to discuss your results. Please take levaquin 1 pill per day for 7 days, the medication has been sent to . A discharge summary will be sent to your primary care physician to ensure continuity of care. Please bring this discharge summary with you to your next office appointment so that your provider can review it at that time. Follow-up appointments: - Keep all your follow-up appointments as already scheduled. If you cannot make an appointment, notify your provider. - Please call to request a follow-up appointment with your primary care physician within one week of discharge. Please let us know if you are unable to obtain an appointment Medications: - Your medication list has been reviewed and reconciled upon discharge to ensure accuracy and continuity of care. - You are provided with a list of all your current medications at this time. Please review this list closely and make note of any changes. - Please take all of your medications exactly as prescribed. - Tell your primary care provider if you cannot afford your medications. - Call your primary care provider if you are having any side effects or any other problems. - Call your primary care provider before taking any over the counter medications or supplements, including herbals and vitamins, because some of these may interact with your current medications and/or make your symptoms worse. Symptoms: Please call your primary care provider for symptoms including, but not limited to: fevers (temperatures greater than 100.4), chills, intractable nausea or vomiting, diarrhea, rash, shortness of breath, bleeding, pain, or if you experience any worsening of the symptoms that brought you to the hospital. For EMERGENCY and VERY SERIOUS health-related issues, such as chest pain, shortness of breath, or sudden onset of the symptoms that brought you to the hospital, you may need to call 911 or go directly to the Emergency Room It has been our privilege to take care of you during your hospital stay. And Above All Else Feel Better! Best Wishes, Tucker Pablo MD PGY3 Resident, Family & Community Medicine [facility] Residency at [facility] - [address], [address] : [place] [address] Pending Studies at Discharge: No Stand-Alone Forms: My [facility], Smoking Cessation Medications and DC Order Prescriptions: New levofloxacin 750 mg Tablet 750 mg PO DAILY@1100 7 Days RF: 0 Continued allopurinol 300 mg tablet 300 mg PO QAM RF: 0 Entresto 24-26 mg tablet 1 tab PO BID Qty: 60 RF: 2 Hold Instructions: Cough metoprolol succinate 200 mg tablet extended release 24 hr 200 mg PO QAM RF: 0 Discharge Orders: Discharge Order (Routine); Ordered 11/03/19 Ordered By: Tucker Cowan/Other Patient Handouts: Levofloxacin tablets Admission Data Admit Date/Time: 11/01/19 14:20 Attending Provider: Jacky Peralta Admit Provider: Ramses Salcedo Primary Care Provider: Teo Ernst Other Providers: Palmer Samuel V. ; Franklyn Hua ; Semaj Pearce Other Interventions: Discharge Summary Assessment (RN) Last Done: 11/03/19 13:33 Supervising Physician Co-Signing Physician Notes I personally examined the patient and verified all jennings points of history and exam, discussed case, and agree with decision making with Dr Pablo. cough actually a little better. seen post bronch. really wants to go home vitals noted nad heent nc at mmm breathing unlabored no accessory muscles has less frequent coughing fits when talking today lung mass/lesion - seems to be provoking cough - or at least is quite plausible that it's what is provoking cough. safe for home on abx - pulm requests levaquin - discussed risks/benefits/side effects (with particular focus on tend onitis/tendon rupture); stable for home, pulm f/u otherwise as above Resident Activity Tracking Resident Involvement: Resident Care Provided Care Provided: Adult Hospital Medicine
--- NOTE | 2019-11-03 10:39 | Consultation Report ---
DATE OF CONSULTATION: 11/03/2019 ONCOLOGY CONSULTATION REASON FOR CONSULTATION: Perihilar mass in a 54-year-old gentleman with Waldenstrom's macroglobulinemia. HISTORY OF PRESENT ILLNESS: The patient is a very pleasant 54-year-old gentleman with Waldenstrom's macroglobulinemia diagnosed in March of 2019 when he had presented with pancytopenia and B symptoms. He recently completed a full course of modified bendamustine and rituximab, which ended on 09/17/2019. Towards the end of his treatment regimen, he had developed a dry nagging nonproductive cough that has persisted up until hospital admission. I saw the patient a couple of days before admission still complaining of cough. Post-treatment CT scan of the chest, abdomen and pelvis showed very good disease response; however, residual perihilar mass suggested either infectious or neoplastic etiology. During the interim, chest x-rays x2 were obtained and found to be negative for infiltrate. 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 Thus, it was decided to have him directly admitted to the medicine service with pulmonary consultation. Lastly, this gentleman's coughing fits have resulted in inguinal hernia and would ask general surgery to discuss intervention once he is medically stabilized. PAST MEDICAL HISTORY: Significant for chronic systolic heart failure, hypoalbuminemia, Lyme disease, Waldenstrom's macroglobulinemia, splenomegaly. PAST SURGICAL HISTORY: Includes Achilles tendon repair, hernia repair, MediPort insertion, bone marrow biopsy and aspiration. MEDICATIONS: Prior to admission includes a sacubitril/valsartan 1 tablet p.o. b.i.d., metoprolol 200 mg p.o. daily, allopurinol 300 mg p.o. every day. ALLERGIES: No known drug allergies. 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 He is a tobacco chewer. Negative for cigarettes or alcohol. FAMILY HISTORY: Noncontributory. REVIEW OF SYSTEMS: As per HPI, mostly for persistent nonproductive dry cough. GENERAL: Negative for fevers, chills or night sweats. He knows of no COVID exposures. He is not anorexic or losing weight. SKIN: No rashes or lesions. No history of dermatoses. HEENT: Negative for headaches, lightheadedness or dizziness. No acute visual or hearing deficits. No sinus symptoms, sore throat or dysphagia. LYMPH: Positive history of lymphadenopathy associated with Waldenstrom's macroglobulinemia. CARDIAC: Positive for chronic systolic heart failure. No current angina or palpitations. PULMONARY: Negative for COPD. No shortness of breath or dyspnea on exertion. Positive for cough. No hemoptysis reported. GASTROINTESTINAL: Negative for abdominal pain, nausea, vomiting, diarrhea or constipation, hematochezia or melena stools. GENITOURINARY: No hematuria, dysuria, urinary incontinence. PSYCHIATRIC: Negative for anxiety, depression or psychoses. ENDOCRINE: Negative for diabetes or thyroid disease. NEUROLOGIC: Negative for seizure, stroke, or migraine headache. HEMATOLOGIC: Positive for pancytopenia diagnosis. Counts have recovered nicely post-treatment. PHYSICAL EXAMINATION: GENERAL: A very pleasant 54-year-old gentleman, well nourished, in no acute distress. VITAL SIGNS: Temperature 37, pulse 73, respiratory rate 16, blood pressure 110/66. SKIN: Warm, dry, noncyanotic without petechia, rash or ecchymosis. HEENT: Atraumatic, normocephalic. Eyes: PERRLA, EOMI. Sclerae nonicteric. No conjunctival injection. Nares are patent without rhinorrhea or discharge. Throat is clear. Tongue midline. Mucous membranes are moist. NECK: Supple without JVD or thyromegaly. LYMPHATICS: No cervical, supraclavicular, axillary or inguinal palpable nodes. HEART: Regular rate and rhythm. No clicks, rubs, murmurs or gallops. LUNGS: Clear to auscultation bilaterally. ABDOMEN: Soft, nontender, nondistended, without palpable hepatosplenomegaly. EXTREMITIES: Pulses and strength are equal in all 4 quadrants. No clubbing, cyanosis or edema. NEUROLOGICALLY: He is awake, alert and oriented x3. Cranial nerves are grossly intact. LABORATORY DATA: WBC count 3590, hemoglobin 14.4, platelet count 117,000. Sodium 139, potassium 3.7, chloride 104, carbon dioxide 28, creatinine 0.74, BUN 11. COVID-19 testing negative. RADIOGRAPHIC DATA: A chest x-ray again clear. IMPRESSION: 1. Nonproductive cough. 2. Perihilar mass (infectious versus neoplastic). 3. Waldenstrom's macroglobulinemia. 4. Hypogammaglobulinemia. 5. Left inguinal hernia. PLAN: The patient is a very pleasant 54-year-old gentleman diagnosed with Waldenstrom's macroglobulinemia in March of 2019. He was effectively treated with modified bendamustine and rituximab, which completed in mid September. Right around that time, he had developed a nonproductive cough and despite chest x-rays, no etiology was revealed. However, on followup post-treatment CT scan of the chest, perihilar mass which is most likely the inciting issue. Recommended inpatient hospitalization so that Pulmonary may evaluate by bronchoscopy I suspect, and also general surgery could look at the patient's hernia and make plans for repair if indicated. For now, we will await pulmonary's input in diagnostics. At some point, the patient should receive IVIG replacement therapy, which I would definitely plan to do through the cold and flu season upcoming. Beyond that, I agree with current medical management and again we will wait for pulmonary's input. The patient has responded very well to induction chemotherapy and will continue to be followed minimally on a quarterly basis once discharged. Thank you very much for allowing me to participate in his care. If you have any questions or concerns, feel free to contact me at any time.
[2019-11-03 11:01] LABS: Neutrophil Body Fluid Man 73 %
[2019-11-03 11:02] LABS: Eosinophil Body Fluid Man 1 %; Fluid Mono/Macrophage 8 %; Lymphocyte Body Fluid Man 18 %
[2019-11-03] MEDS: allopurinoL 300 MG TAB PO SCH (12:17)
[2019-11-03] MEDS: METOPROLOL SUCC 50MG EXT REL TAB PO SCH (12:18)
[2019-11-03] MEDS ORDERED: levoFLOXacin 750 MG TAB PO SCH (13:00)
--- NOTE | 2019-11-03 20:23 | Billing Data ---
Date of Service November 03, 2019 Coding Level of Care Code D/C Day Management <30 mins
[2019-11-06 11:22] LABS: Aspergillus Ag, BAL Not Detected (Not Detected)
[2019-11-08 21:37] LABS: Fungitell (1-3)-B-D-Glucan <31
== END 2019-11-03 13:55 | disposition home or self-care (01) ==
LOC: 3W 14:20 → SUATTDRO 14:20 → INTOOBSV 14:20